=== PATIENT | male | born 1930 | race Caucasian/White ===

== ENCOUNTER → 2016-07-14 | Outpatient (CLI) | payer BC ==
[~2016-07-14] MED LIST: AMLO-110 PO; ASPI81TA28 PO; B-CO-25; CHOL100010 PO; FINA5TAB PO; FURO-85 PO; LISI40TA PO; METO100T44 PO; MULT-506 PO; NITR0.4S UT; PRAV20TA PO; TERA1CAP63 PO; WARF2.5T8 PO; saline nasal spray
--- NOTE | 2016-07-14 11:29 | DIAGNOSTIC IMAGING REPORT ---
LEFT ANKLE 3 VIEWS CLINICAL HISTORY: Left ankle pain. Recent twisting injury. FINDINGS: 3 views of left ankle are obtained. No prior studies are available for comparison at the time of dictation. The skeletal structures are osteopenic. No fracture is seen. The ankle mortise is intact. Arthritic change is seen at the tibiotalar joint with mild flattening of the talus. Enthesophytes arise from the medial and lateral malleoli. There is a large plantar calcaneal enthesophyte. No joint effusion is identified. Soft tissue edema is present in the visualized left lower extremity. There is advanced atherosclerotic calcification of the regional arteries. IMPRESSION: 1. Diffuse soft tissue edema with no radiographic evidence of left ankle fracture. 2. Osteopenia, arthritic change, and large plantar heel spur as above. Electronically signed by: Jefry Wright M.D. 07/14/2016 11:27 AM Dictated Date/Time: 07/14/2016 11:26 AM
== END | disposition home or self-care (01) ==
LOC: C.RDSM 11:15
PROVIDERS: ATTEND Family Medicine
DX: M25.572 Pain in left ankle and joints of left foot (principal); M85.872 Other specified disorders of bone density and structure, left ankle and foot; M77.32 Calcaneal spur, left foot

== ENCOUNTER 2017-02-19 13:10 | Emergency (ER) | payer BC ==
[~2017-02-19] VITALS: Ht 167.6 cm; Wt 82.1 kg
[2017-02-19 13:13] VITALS: TEMP 36.3; Ht 167.6 cm; Wt 82.1 kg
--- NOTE | 2017-02-19 13:40 | EMERGENCY ROOM VISIT NOTE ---
History Report prepared by Armin: Michael Weems Under the Supervision of: Dr. Amandeep Zeng M.D. First contact with patient: 13:18 Chief Complaint: SHORTNESS OF BREATH Stated Complaint: COUGH,SOB History of Present Illness The patient is an 86 year old white male with a past medical history of a aortocoronary bypass, a-fib, basal cell carcinoma of ear, scalp, and skin, benign HTN, cardiac pacemaker, CAD, enlarged prostate, HLD, NH who presents to the ED with a cc of a constant dry cough and shortness of breath beginning 10.5 hours ago. Pt woke up with SOB and a cough. He took a diuretic and went to sleep. Pt notes he had a cough the last time he had CHF. Positive receiving flu shot, taking Lasix, taking Coumadin for a-fib. Negative swelling in legs, nausea , vomiting, history of smoking, being SOB after walking to ED room or up-stairs , weight gain. Pt's last INR was normal. Source of History: patient Onset: 10.5 hours ago Position: other (global) Quality: other (SOB, dry cough) Timing: constant Associated Symptoms: No nausea, No vomiting Note: Denies swelling in legs, being SOB after walking up stairs and to ED room, weight gain Review of Systems See HPI for pertinent positives and negatives. A total of ten systems were reviewed and were otherwise negative. Past Medical & Surgical Medical Problems: (1) ANTICOAGULANTS,LT,CURRENT USE (2) AORTOCORONARY BYPASS (3) Atrial fibrillation (4) Basal cell carcinoma of ear (5) Basal cell carcinoma of scalp (6) Basal cell carcinoma of skin (7) Benign hypertension (8) CARDIAC PACEMAKER IN SITU (9) Coronary artery disease (10) DIAB HERIBERTO WO COMPL, TYPE II OR UNSPEC TYPE, NOT UNCNTRLD (11) Enlarged prostate (12) Hyperlipidemia (13) Old myocardial infarction (14) Prostate specific antigen abnormal (15) Tobacco user Family History FH: NH (myocardial infarction) FH: liver disease Omitted due to advanced age Social History Smoking Status: Former Smoker Smokeless Tobacco Use: No Alcohol Use: occasionally Marital Status: Housing Status: lives with significant other Occupation Status: retired Current/Historical Medications Scheduled Aspirin (Aspirin Ec), 81 MG PO Q2D Cholecalciferol (D-400), 1 TAB PO DAILY Cyanocobalamin (Vitamin B-12), 1,000 MCG PO DAILY Finasteride (Proscar), 1 TAB PO DAILY Furosemide (Lasix), 1 TAB PO DAILY Levothyroxine Sodium (Levothyroxine Sodium), 1 TAB PO DAILY Lisinopril (Zestril), 40 MG PO QAM Metoprolol Succ (Toprol Xl) (Toprol-Xl ), 100 MG PO DAILY Multivitamin (Multivitamin), 1 TAB PO DAILY Nitroglycerin (Nitrostat), 0.4 MG UT PRN Rosuvastatin Calcium (Crestor), 10 MG PO DAILY Terazosin Hcl (Hytrin), 1 CAP PO DAILY Warfarin Sod (Jantoven), 2.5 MG PO 5XWK Warfarin Sod (Jantoven), 5 MG PO 2XWK Scheduled PRN Hydrocodone W/ Homatropine (Hycodan 5/1.5MG 5 Ml), 2.5 ML PO Q6H PRN for Cough [saline nasal spray], 2 SPRAYS UD PRN for congestion Allergies Coded Allergies: NO KNOWN DRUG ALLERGIES (Verified Allergy, Unknown, , 02/19/17) Physical Exam Vital Signs Date Time Temp Pulse Resp B/P (MAP) Pulse Ox O2 Delivery O2 Flow Rate FiO2 02/19/17 16:01 62 20 159/84 97 02/19/17 15:25 67 20 167/86 96 Room Air 02/19/17 13:58 78 02/19/17 13:58 95 Room Air 02/19/17 13:57 72 20 159/84 95 Room Air 02/19/17 13:46 93 Room Air 02/19/17 13:13 36.3 86 16 167/84 97 Room Air Physical Exam GENERAL: Awake, alert, well-appearing, NAD HENT: Normocephalic, atraumatic. EYES: Normal conjunctiva. Sclera non-icteric. NECK: Supple. No nuchal rigidity. FROM. RESPIRATORY: CTAB, no rhonchi, wheezing, crackles CARDIAC: RRR, no MRG ABDOMEN: Soft, NTND, BS+ MSK: No chest wall TTP, mild pretibial edema bilaterally. NEURO: GCS 15, CN 2-12 intact, moves all 4s on command SKIN: No rash or jaundice noted. Medical Decision & Procedures ER Provider Diagnostic Interpretation: X-ray: Per my interpretation, radiologist review. CHEST ONE VIEW PORTABLE CLINICAL HISTORY: Dyspnea. Respiratory distress. COMPARISON STUDY: Chest radiograph October 15, 2013. FINDINGS: Single lead left subclavian pacemaker is unchanged in position. There are median sternotomy wires and clips from bypass grafting. Moderate cardiomegaly is noted. There is no evidence of pulmonary edema. No consolidation is identified to suggest pneumonia. There is no pneumothorax or pleural effusion. Degenerative changes of the shoulders are noted. IMPRESSION: No acute cardiopulmonary findings. Moderate cardiomegaly. Electronically signed by: Ted Herring M.D. 02/19/2017 1:55 PM Dictated Date/Time: 02/19/2017 1:54 PM Laboratory Results 02/19/17 13:54 Red Blood Count 3.58, Mean Corpuscular Volume 97.8, Mean Corpuscular Hemoglobin 34.6, Mean Corpuscular Hemoglobin Concent 35.4, Mean Platelet Volume 10.1, Neutrophils (%) (Auto) 66.8, Lymphocytes (%) (Auto) 16.6, Monocytes (%) (Auto) 15.0, Eosinophils (%) (Auto) 1.2, Basophils (%) (Auto) 0.0, Neutrophils # (Auto ) 3.35, Lymphocytes # (Auto) 0.83, Monocytes # (Auto) 0.75, Eosinophils # (Auto ) 0.06, Basophils # (Auto) 0.00 02/19/17 13:54 Test 02/19/17 13:54 02/19/17 15:17 White Blood Count 5.01 K/uL (4.8-10.8) Red Blood Count 3.58 M/uL (4.7-6.1) Hemoglobin 12.4 g/dL (14.0-18.0) Hematocrit 35.0 % (42-52) Mean Corpuscular Volume 97.8 fL (80-100) Mean Corpuscular Hemoglobin 34.6 pg (25-34) Mean Corpuscular Hemoglobin Concent 35.4 g/dl (32-36) Platelet Count 165 K/uL (130-400) Mean Platelet Volume 10.1 fL (7.4-10.4) Neutrophils (%) (Auto) 66.8 % Lymphocytes (%) (Auto) 16.6 % Monocytes (%) (Auto) 15.0 % Eosinophils (%) (Auto) 1.2 % Basophils (%) (Auto) 0.0 % Neutrophils # (Auto) 3.35 K/uL (1.4-6.5) Lymphocytes # (Auto) 0.83 K/uL (1.2-3.4) Monocytes # (Auto) 0.75 K/uL (0.11-0.59) Eosinophils # (Auto) 0.06 K/uL (0-0.5) Basophils # (Auto) 0.00 K/uL (0-0.2) RDW Standard Deviation 46.1 fL (36.4-46.3) RDW Coefficient of Variation 13.0 % (11.5-14.5) Immature Granulocyte % (Auto) 0.4 % Immature Granulocyte # (Auto) 0.02 K/uL (0.00-0.02) Prothrombin Time 19.3 SECONDS (9.0-12.0) Prothromb Time International Ratio 1.9 (0.9-1.1) Activated Partial Thromboplast Time 29.5 SECONDS (21.0-31.0) Partial Thromboplastin Ratio 1.1 Anion Gap 7.0 mmol/L (3-11) Est Creatinine Clear Calc Drug Dose 48.0 ml/min Estimated GFR () 69.3 Estimated GFR (Non- 59.8 BUN/Creatinine Ratio 11.8 (10-20) Calcium Level 8.9 mg/dl (8.5-10.1) Total Bilirubin 0.5 mg/dl (0.2-1) Aspartate Amino Transf (AST/SGOT) 24 U/L (15-37) Alanine Aminotransferase (ALT/SGPT) 27 U/L (12-78) Alkaline Phosphatase 84 U/L (45-117) Troponin I 0.018 ng/ml (0-0.045) Pro-B-Type Natriuretic Peptide 2702 pg/ml (0-1800) Total Protein 7.7 gm/dl (6.4-8.2) Albumin 3.7 gm/dl (3.4-5.0) Globulin 4.0 gm/dl (2.5-4.0) Albumin/Globulin Ratio 0.9 (0.9-2) Urine Color YELLOW Urine Appearance CLEAR (CLEAR) Urine pH 5.0 (4.5-7.5) Urine Specific [place] 1.014 (1.000-1.030) Urine Protein NEG (NEG) Urine Glucose (UA) NEG (NEG) Urine Ketones NEG (NEG) Urine Occult Blood NEG (NEG) Urine Nitrite NEG (NEG) Urine Bilirubin NEG (NEG) Urine Urobilinogen NEG (NEG) Urine Leukocyte Esterase NEG (NEG) Laboratory results reviewed by me ECG Indication: SOB/dyspnea Rate (beats per minute): 64 Rhythm: atrial fibrillation (intermittently ventricularly paced) Findings: other (When paced - wide QRS, normal QTc, Diffuse Q-waves throughout with TWIs in leads I and AVL. When not paced - normal QRS, normal QTc, TWI in AVF) Comparison ECG Date: 10/15/13 & 12/01/11 Change: 10/15/13 - ventricularly paced rhythm is unchanged 12/01/11 - non-paced rhythm is unchanged ED Course 1324: The patient was evaluated in room B04B. A complete history and physical exam was performed. 1532: I reevaluated the patient. Discussed results and discharge instructions: he verbalized understanding and agreement. The patient is ready for discharge. Medical Decision The patient is an 86 year old white male with a past medical history of a aortocoronary bypass, a-fib, basal cell carcinoma of ear, scalp, and skin, benign HTN, cardiac pacemaker, CAD, enlarged prostate, HLD, NH who presents to the ED with a cc of a constant dry cough and shortness of breath beginning 10.5 hours ago. Differential diagnosis: Etiologies such as infections, reactive airway disease, pneumonia, pneumothorax , COPD, CHF, cardiac ischemia, pulmonary embolism, musculoskeletal, gastrointestinal, as well as others were entertained. Patient was seen and evaluated at the bedside. Patient does have a known history of cardiac disease as well as A. fib and is on Coumadin. Patient did present today with a chief complaint of some dry cough that is causing issues with sleep. Patient also did complain of some mild shortness of breath with the patient did take an extra dose of his Lasix as he was concerned that maybe he was developing some CHF. Patient states that his weights been stable. Patient does not have any chest pain. Patient has not noticed much lower extremity swelling. On exam the patient is very well-appearing doesn't have any wheezing or crackles. Patient does have some trace pretibial edema but no other signs or symptoms or concerning. Patient does sound as though he is in A. fib. EKG did show intermittent the paced without any acute ischemic changes. Patient's blood work was fairly unremarkable. Patient's BNP was 2000 however the patient does not have any signs of volume overload on his chest x- ray or on his physical examination as he did not have any crackles and only had trace pretibial edema. Patient kidney function normal. Patient did receive some codeine help with his cough. Patient has noted infectious causes of pneumonia or other lung disease on chest x-ray. Patient was feeling improved and again does not have any complaints of shortness of breath or chest pain upon reassessment of the patient. Patient did state that he did ambulate into the department without any dyspnea on exertion. Patient has no orthopnea. The patient is suitable for outpatient follow-up and treatment at this time. Patient was told to continue to check his weights and that if he needs to he may take an extra dose of his Lasix. Patient was told to follow-up with his primary care physician. Patient was told his INR was 1.9 which is a touch below his therapeutic level. Patient is to follow-up with his primary care for this well and/or Coumadin clinic. Patient was given strict follow-up, discharge , and return precautions. All questions were answered. Patient was deemed suitable for outpatient follow-up at this time. Patient agreed with the plan of care and was safely discharged home. Medication Reconcilliation Current Medication List: was personally reviewed by me Blood Pressure Screening Patient's blood pressure: Elevated blood pressure Blood pressure disposition: Referred to PCP Impression Primary Impression: Cough Additional Impression: Anemia Scribe Attestation The scribe's documentation has been prepared under my direction and personally reviewed by me in its entirety. I confirm that the note above accurately reflects all work, treatment, procedures, and medical decision making performed by me. Departure Information Dispostion Home / Self-Care Prescriptions Hydrocodone W/ Homatropine (HYCODAN 5/1.5MG 5 ML) 1 Syp Syp 2.5 ML PO Q6H Y for Cough, #60 ML Prov: Amandeep Zeng M.D. 02/19/17 Referrals Ty Mosqueda D.O. (PCP) Forms HOME CARE DOCUMENTATION FORM, IMPORTANT VISIT INFORMATION Patient Instructions Coughing Techniques, Deep Coughing, My [facility] Additional Instructions Please return to the emergency department if you have worsening or recurrent symptoms not amenable to at-home treatment. Please call for a follow-up appointment with her primary care physician. Please take your medications as prescribed. If you have other concerns and/or complaints please feel free to also call your primary care physician's office or return the ED for further evaluation, management, and treatment. You may take 600 mg Ibuprofen every 6 hours as needed for pain with food for no more than 2 consecutive days. You may take tylenol 1000 mg every 6 hours as needed for pain. You may take motrin and tylenol separately or at the same time. Take your medications as prescribed. You have been examined and treated today on an emergency basis only. This is not a substitute for, or an effort to provide, complete comprehensive medical care. It is impossible to recognize and treat all injuries or illnesses in a single emergency department visit. It is therefore important that you follow up closely with [facility], your PCP, and/or your specialist(s). Call as soon as possible for an appointment. Thank you for your time and consideration. I look forward to speaking with you again soon. Please don't hesitate to call us if you have any questions. Problem Qualifiers Additional Impression: Anemia Anemia type: unspecified type Qualified Codes: D64.9 - Anemia, unspecified
[2017-02-19] MEDS ORDERED: ACETAMINOPHEN/CODEINE 300/30MG TAB PO ONE (13:45)
--- NOTE | 2017-02-19 13:56 | DIAGNOSTIC IMAGING REPORT ---
CHEST ONE VIEW PORTABLE CLINICAL HISTORY: Dyspnea. Respiratory distress. COMPARISON STUDY: Chest radiograph October 15, 2013. FINDINGS: Single lead left subclavian pacemaker is unchanged in position. There are median sternotomy wires and clips from bypass grafting. Moderate cardiomegaly is noted. There is no evidence of pulmonary edema. No consolidation is identified to suggest pneumonia. There is no pneumothorax or pleural effusion. Degenerative changes of the shoulders are noted. IMPRESSION: No acute cardiopulmonary findings. Moderate cardiomegaly. Electronically signed by: Ted Herring M.D. 02/19/2017 1:55 PM Dictated Date/Time: 02/19/2017 1:54 PM
[2017-02-19 13:58] VITALS: O2SAT 95
[2017-02-19 14:05] LABS: EOS % 1.2 %; EOS ABS # 0.06 K/uL (0-0.5); HEMOGLOBIN 12.4 g/dL (14.0-18.0); IG# 0.02 K/uL (0.00-0.02); LYMPH % 16.6 %; LYMPH ABS # 0.83 K/uL (1.2-3.4); MEAN CELL VOLUME 97.8 fL (80-100); MEAN CORPUSCULAR HEMOGLOBIN 34.6 pg (25-34); MEAN CORPUSCULAR HGB CONC 35.4 g/dl (32-36); MEAN PLATELET VOLUME 10.1 fL (7.4-10.4); MONO ABS # 0.75 K/uL (0.11-0.59); NEUT % 66.8 %; NEUT ABS # 3.35 K/uL (1.4-6.5); PLATELET COUNT 165 K/uL (130-400); RED CELL DISTRIBUTION WIDTH SD 46.1 fL (36.4-46.3); WHITE BLOOD COUNT 5.01 K/uL (4.8-10.8)
[2017-02-19 14:13] LABS: INR 1.9 (0.9-1.1); PTT PATIENT 29.5 SECONDS (21.0-31.0)
[2017-02-19 14:22] LABS: ALBUMIN 3.7 gm/dl (3.4-5.0); CALCIUM 8.9 mg/dl (8.5-10.1); CREATININE 1.11 mg/dl (0.60-1.40); POTASSIUM 3.8 mmol/L (3.5-5.1)
[2017-02-19 14:27] LABS: TOTAL PROTEIN 7.7 gm/dl (6.4-8.2)
[2017-02-19] MEDS ORDERED: CYAN10005 PO (14:37)
[2017-02-19] MEDS ORDERED: CHOLTAB PO (14:37)
[2017-02-19] MEDS ORDERED: CRS/10 PO (14:37)
[2017-02-19] MEDS ORDERED: LEVO25TA5 PO (14:37)
[2017-02-19] MEDS ORDERED: HYDR5SYP11 PO (15:46)
[2017-02-19 16:01] VITALS: BP 159/84; PULSE 62; O2SAT 97
== END 2017-02-19 16:00 | disposition home or self-care (01) ==
LOC: C.EDB 13:11
DX: R05 Cough (principal); D64.9 Anemia, unspecified; I48.91 Unspecified atrial fibrillation; I10 Essential (primary) hypertension; I25.2 Old myocardial infarction; E78.5 Hyperlipidemia, unspecified; E11.9 Type 2 diabetes mellitus without complications; R94.31 Abnormal electrocardiogram [ECG] [EKG]; Z95.0 Presence of cardiac pacemaker; Z79.01 Long term (current) use of anticoagulants; Z79.82 Long term (current) use of aspirin; Z87.891 Personal history of nicotine dependence; Z82.49 Family history of ischemic heart disease and other diseases of the circulatory system; Z83.79 Family history of other diseases of the digestive system

== ENCOUNTER 2017-05-22 15:39 | Inpatient (IN) | payer OTHER, BC ==
[~2017-05-22] VITALS: Ht 170.2 cm; Wt 79.9 kg
[~2017-05-22 15:39] MED LIST changes: -AMLO-110 PO; -B-CO-25; -CHOL100010 PO; +CHOLTAB PO; +CRS/10 PO; +CYAN10005 PO; +LEVO25TA5 PO; -MULT-506 PO; -NITR0.4S UT; -PRAV20TA PO
[2017-05-22] MEDS ORDERED: MULT-506 PO (15:45)
[2017-05-22 16:15] LABS: BASO % 0.2 %; BASO ABS # 0.01 K/uL (0-0.2); EOS ABS # 0.15 K/uL (0-0.5); HEMATOCRIT 36.9 % (42-52); HEMOGLOBIN 13.2 g/dL (14.0-18.0); IG# 0.01 K/uL (0.00-0.02); LYMPH % 29.9 %; LYMPH ABS # 1.52 K/uL (1.2-3.4); MEAN CELL VOLUME 96.3 fL (80-100); MEAN CORPUSCULAR HEMOGLOBIN 34.5 pg (25-34); MEAN CORPUSCULAR HGB CONC 35.8 g/dl (32-36); MONO % 12.6 %; MONO ABS # 0.64 K/uL (0.11-0.59); NEUT % 54.1 %; NEUT ABS # 2.75 K/uL (1.4-6.5); PLATELET COUNT 224 K/uL (130-400); RED CELL DISTRIBUTION WIDTH CV 13.4 % (11.5-14.5); RED CELL DISTRIBUTION WIDTH SD 46.9 fL (36.4-46.3); WHITE BLOOD COUNT 5.08 K/uL (4.8-10.8)
[2017-05-22 16:27] LABS: INR 1.7 (0.9-1.1); PTT PATIENT 27.5 SECONDS (21.0-31.0)
--- NOTE | 2017-05-22 16:28 | EMERGENCY ROOM VISIT NOTE ---
History First contact with patient: 15:43 Chief Complaint: WEAKNESS Stated Complaint: TIA SX Nursing Triage Summary: pt arrives via EMS reports while attempting to take food out of refrigerator R arm became weak and tingly also RLE became weak, pt denies speech difficulty, GUERRA , CP or sob , denies visin changes upon arrival to ED pt sx have all resolved History of Present Illness The patient is a 86 year old male with hx of CAD s/p NH and bypass, Afib on Coumadin, pacemaker, HLD, BPH, basal cell carcinoma who presents to the Emergency Room with complaints of R sided arm and leg weakness. Associated with R arm/hand numbness and tingling and inability to grasp (was not able to take a vegetable dish from refrigerator or pick nose). No changes in speech per . Denies any falls, GUERRA, vision changes. Otherwise asymptomatic. Reports 1st episode and no hx of strokes. Symptoms lasted < 1 hour. Now back to baseline and able to use R hand/arm and not having any R leg weakness. Of note: pt smoked for 10 years and quit in 1958. Review of Systems see below Constitutional: No fever Respiratory: No shortness of breath Cardiovascular: No chest pain Abdomen: No pain, No nausea, No vomiting, No diarrhea, No constipation Genitourinary - Male: + urinary frequency (BPH hx ), No dysuria Neurologic: No weakness (resolved), No numbness/tingling (resolved) Past Medical/Surgical History Medical Problems: (1) ANTICOAGULANTS,LT,CURRENT USE (2) AORTOCORONARY BYPASS (3) Atrial fibrillation (4) Basal cell carcinoma of ear (5) Basal cell carcinoma of scalp (6) Basal cell carcinoma of skin (7) Benign hypertension (8) CARDIAC PACEMAKER IN SITU (9) Coronary artery disease (10) DIAB HERIBERTO WO COMPL, TYPE II OR UNSPEC TYPE, NOT UNCNTRLD (11) Enlarged prostate (12) Hyperlipidemia (13) Old myocardial infarction (14) Prostate specific antigen abnormal (15) Tobacco user Family History FH: NH (myocardial infarction) FH: liver disease Omitted due to advanced age Social History Smoking Status: Former Smoker Alcohol Use: occasionally Marital Status: Housing Status: lives with significant other Occupation Status: retired Current/Historical Medications Scheduled Aspirin (Aspirin Ec), 81 MG PO Q2D Cholecalciferol (D-400), 400 INTER.UNIT PO DAILY Cyanocobalamin (Vitamin B-12), 1,000 MCG PO DAILY Finasteride (Finasteride), 5 MG PO DAILY Furosemide (Furosemide), 20 MG PO DAILY Levothyroxine Sodium (Levothyroxine Sodium), 25 MCG PO DAILY Lisinopril (Lisinopril), 40 MG PO QAM Metoprolol Succinate (Metoprolol Succinate ER), 100 MG PO DAILY Multivitamin (Multivitamin), 1 TAB PO DAILY Terazosin Hcl (Hytrin), 10 MG PO HS Warfarin Sodium (Warfarin Sodium), 2.5 MG PO DAILY Scheduled PRN Nitroglycerin (Nitrostat), 0.4 MG UT UD PRN for Chest Pain Saline (Saline Nasal [place]), 2 SPRAYS NA UD PRN for Nasal Congestion Physical Exam Vital Signs Date Time Temp Pulse Resp B/P (MAP) Pulse Ox O2 Delivery O2 Flow Rate FiO2 05/22/17 17:02 65 18 177/93 96 Room Air 05/22/17 15:47 36.6 78 18 177/93 96 Room Air Physical Exam see below General Appearance: no apparent distress Head: normocephalic, atraumatic Eyes: normal inspection ENT: normal ENT inspection Neck: supple, no adenopathy Respiratory/Chest: lungs clear, normal breath sounds Cardiovascular: regular rate, rhythm, no murmur Abdomen / GI: normal bowel sounds, non tender, soft Extremities: normal inspection, no pedal edema Neurologic/Psych: safety lead II-XII nml as tested, no motor/sensory deficits, alert , oriented x 3 Medical Decision & Procedures ER Provider Diagnostic Interpretation: EK ventricular paced CXR: ___ CT head: ___ Laboratory Results 05/22/17 15:40 Red Blood Count 3.83, Mean Corpuscular Volume 96.3, Mean Corpuscular Hemoglobin 34.5, Mean Corpuscular Hemoglobin Concent 35.8, Mean Platelet Volume 10.0, Neutrophils (%) (Auto) 54.1, Lymphocytes (%) (Auto) 29.9, Monocytes (%) (Auto) 12.6, Eosinophils (%) (Auto) 3.0, Basophils (%) (Auto) 0.2, Neutrophils # (Auto ) 2.75, Lymphocytes # (Auto) 1.52, Monocytes # (Auto) 0.64, Eosinophils # (Auto ) 0.15, Basophils # (Auto) 0.01 05/22/17 15:40 Test 05/22/17 15:40 White Blood Count 5.08 K/uL (4.8-10.8) Red Blood Count 3.83 M/uL (4.7-6.1) Hemoglobin 13.2 g/dL (14.0-18.0) Hematocrit 36.9 % (42-52) Mean Corpuscular Volume 96.3 fL (80-100) Mean Corpuscular Hemoglobin 34.5 pg (25-34) Mean Corpuscular Hemoglobin Concent 35.8 g/dl (32-36) Platelet Count 224 K/uL (130-400) Mean Platelet Volume 10.0 fL (7.4-10.4) Neutrophils (%) (Auto) 54.1 % Lymphocytes (%) (Auto) 29.9 % Monocytes (%) (Auto) 12.6 % Eosinophils (%) (Auto) 3.0 % Basophils (%) (Auto) 0.2 % Neutrophils # (Auto) 2.75 K/uL (1.4-6.5) Lymphocytes # (Auto) 1.52 K/uL (1.2-3.4) Monocytes # (Auto) 0.64 K/uL (0.11-0.59) Eosinophils # (Auto) 0.15 K/uL (0-0.5) Basophils # (Auto) 0.01 K/uL (0-0.2) RDW Standard Deviation 46.9 fL (36.4-46.3) RDW Coefficient of Variation 13.4 % (11.5-14.5) Immature Granulocyte % (Auto) 0.2 % Immature Granulocyte # (Auto) 0.01 K/uL (0.00-0.02) Prothrombin Time 18.1 SECONDS (9.0-12.0) Prothromb Time International Ratio 1.7 (0.9-1.1) Activated Partial Thromboplast Time 27.5 SECONDS (21.0-31.0) Partial Thromboplastin Ratio 1.1 Anion Gap 7.0 mmol/L (3-11) Est Creatinine Clear Calc Drug Dose 53.4 ml/min Estimated GFR () 74.1 Estimated GFR (Non- 64.0 BUN/Creatinine Ratio 16.6 (10-20) Calcium Level 9.3 mg/dl (8.5-10.1) Total Bilirubin 0.5 mg/dl (0.2-1) Aspartate Amino Transf (AST/SGOT) 27 U/L (15-37) Alanine Aminotransferase (ALT/SGPT) 31 U/L (12-78) Alkaline Phosphatase 69 U/L (45-117) Troponin I < 0.015 ng/ml (0-0.045) Total Protein 7.7 gm/dl (6.4-8.2) Albumin 3.7 gm/dl (3.4-5.0) Globulin 4.0 gm/dl (2.5-4.0) Albumin/Globulin Ratio 0.9 (0.9-2) ED Course Pt evaluated in B3A at 3:55 and case discussed with Dr. Villa. Medical Decision 86 year old male with hx of CAD s/p NH and bypass, Afib on Coumadin, pacemaker , HLD, BPH, hx of basal cell carcinoma who presents with concern of now resolved R sided arm and leg weakness associated with paraesthesias concerning for TIA in the setting of Afib on anticoagulation vs. head bleed vs. ischemic/ hemorrhagic stroke vs. NH. Will assess INR to ensure therapeutic. -Ordered CT head without contrast - senescent changes with no hemorrhage, mass effect or acute territorial ischemia -Ordered CXR - consistent with chronic heart disease (cardiomegaly and cardiac pacemaker with evidence of CHF) -Ordered coags - subtherapeutic INR of 1.7 -Ordered CBC, CMP - wnl -Ordered Troponin - negative -paged hospitalist Lucia for admission at 17:40 -Spoke to HECTOR Etienne for admission for TIA work up at 17:55 Impression Primary Impression: Atrial fibrillation Additional Impression: TIA (transient ischemic attack) Departure Information Dispostion Admitted as an inpatient Condition GOOD Referrals Ty Mosqueda D.O. (PCP) Patient Instructions My [facility] Problem Qualifiers
--- NOTE | 2017-05-22 16:33 | DIAGNOSTIC IMAGING REPORT ---
SINGLE VIEW CHEST CLINICAL HISTORY: Transient ischemic attack. Weakness. FINDINGS: An AP, portable, upright chest radiograph is compared to study dated 02/19/2017. The examination is degraded by portable technique and patient rotation. A single lead cardiac pacemaker is unchanged in position. The patient is status post midline sternotomy. The heart is enlarged and there is atherosclerotic calcification of the thoracic aorta. There is pulmonary vascular congestion. There is bibasilar atelectasis. No airspace consolidation or large pleural effusion is identified. No pneumothorax is seen. The skeletal structures are osteopenic. Advanced arthritic change is noted in the shoulders and thoracic spine. IMPRESSION: 1. Cardiomegaly and cardiac pacemaker with evidence of congestive failure. 2. No airspace consolidation or large pleural effusion is identified. Electronically signed by: Jefry Wright M.D. 05/22/2017 4:32 PM Dictated Date/Time: 05/22/2017 4:30 PM
[2017-05-22 16:39] LABS: ALBUMIN 3.7 gm/dl (3.4-5.0); ALT/SGPT 31 U/L (12-78); AST/SGOT 27 U/L (15-37); BLOOD UREA NITROGEN 17 mg/dl (7-18); CALCIUM 9.3 mg/dl (8.5-10.1); CARBON DIOXIDE 26 mmol/L (21-32); CREATININE 1.05 mg/dl (0.60-1.40); GLUCOSE 115 mg/dl (70-99); POTASSIUM 3.8 mmol/L (3.5-5.1); SODIUM 138 mmol/L (136-145)
[2017-05-22 16:42] LABS: ALKALINE PHOSPHATASE 69 U/L (45-117); TOTAL PROTEIN 7.7 gm/dl (6.4-8.2)
[2017-05-22] MEDS ORDERED: WARF-280 PO (16:53)
[2017-05-22] MEDS ORDERED: LSX20 PO (16:53)
[2017-05-22] MEDS ORDERED: PRS5 PO (16:53)
[2017-05-22] MEDS ORDERED: TPRSR/100 PO (16:53)
[2017-05-22] MEDS ORDERED: LSN40 PO (16:53)
[2017-05-22] MEDS ORDERED: SALI-3 (16:56)
--- NOTE | 2017-05-22 17:35 | DIAGNOSTIC IMAGING REPORT ---
CT SCAN OF THE BRAIN WITHOUT IV CONTRAST CLINICAL HISTORY: Transient ischemic attack. COMPARISON STUDY: CT of the brain dated 06/01/2008. TECHNIQUE: Unenhanced axial CT scan of the brain is performed from the vertex to the skull base. A dose lowering technique was utilized adhering to the principles of ALARA. CT DOSE: 537.48 mGy.cm FINDINGS: Brain parenchyma: There are age-related involutional changes noting moderate to advanced subcortical and periventricular microangiopathic change. There is no hemorrhage, mass effect, or evidence of acute territorial ischemia by CT criteria. Villan[place]va-white matter is preserved. No extra-axial fluid collection is seen. Ventricles, sulci, cisterns: Prominent secondary to involutional change. Intracranial vasculature: There is atherosclerotic calcification of the cavernous carotid and vertebral arteries. Calvarium: Unremarkable. Sinuses and mastoids: The visualized paranasal sinuses are clear. The mastoid air cells are well pneumatized. Orbits: The bony orbits are grossly intact. There are bilateral ocular lens implants. IMPRESSION: Senescent changes as above with no hemorrhage, mass effect, or evidence of acute territorial ischemia by CT criteria. Electronically signed by: Jefry Wright M.D. 05/22/2017 5:34 PM Dictated Date/Time: 05/22/2017 5:32 PM
--- NOTE | 2017-05-22 18:33 | EMERGENCY ROOM VISIT NOTE ---
ED Visit Note First contact with patient: 15:43 Patient seen and examined at bedside after discussion with the resident. Please refer to the resident's note for additional details and information. Patient with an episode of right-sided weakness, tremor predominantly in the upper extremity greater than lower extremity that occurred earlier today lasting approximately 30-40 minutes. This was resolved by the time of his arrival in the emergency room. Patient noted dropping things from his right hand. Patient is right-hand dominant. Patient with no prior history of TIA or CVA. Patient does have risk factors for such though. Patient with no recurrence of his prior symptoms and felt normal throughout his ED evaluation. No prior history of similar events. Patient's INR noted to be slightly subtherapeutic. Patient was admitted to the hospitalist for additional evaluation of TIA/CVA. MDM: Given advanced age and comorbidities patient likely with TIA. No recurrent symptoms in the emergency room. CT negative and labs reassuring. Patient hemodynamically stable throughout. Patient is anticoagulated, although was found to be subtherapeutic today. Patient does have a history of A. fib. Patient made aware of all results and plan and was in agreement. Patient unable to have MRI done due to pacemaker. Patient's EKG showed no acute changes and a obviously paced rhythm with abnormalities known to be seen in pacemaker patient's. Patient will likely need carotid ultrasound and possible echo/cardiology evaluation. Problem List Medical Problems: (1) ANTICOAGULANTS,LT,CURRENT USE Status: Chronic (2) AORTOCORONARY BYPASS Status: Resolved (3) Atrial fibrillation Status: Chronic (4) Atrial fibrillation Status: Chronic (5) Basal cell carcinoma of ear Status: Resolved (6) Basal cell carcinoma of scalp Status: Resolved (7) Basal cell carcinoma of skin Status: Resolved (8) Benign hypertension Status: Chronic (9) Bladder cancer Status: Resolved (10) CARDIAC PACEMAKER IN SITU Status: Chronic (11) Coronary artery disease Status: Chronic (12) Enlarged prostate Status: Chronic (13) Hyperlipidemia Status: Chronic (14) retirement (current) use of anticoagulants Status: Chronic (15) Old myocardial infarction Status: Resolved (16) Prostate specific antigen abnormal Status: Chronic (17) Tobacco user Status: Chronic Surgical Problems: (1) Hx of CABG Status: Chronic Current/Historical Medications Scheduled Aspirin (Aspirin Ec), 81 MG PO Q2D Cholecalciferol (D-400), 400 INTER.UNIT PO DAILY Cyanocobalamin (Vitamin B-12), 1,000 MCG PO DAILY Finasteride (Finasteride), 5 MG PO DAILY Furosemide (Furosemide), 20 MG PO DAILY Hydralazine HCl (Hydralazine HCl), 10 MG PO TID Levothyroxine Sodium (Levothyroxine Sodium), 25 MCG PO DAILY Lisinopril (Lisinopril), 40 MG PO QAM Metoprolol Succinate (Metoprolol Succinate ER), 100 MG PO DAILY Multivitamin (Multivitamin), 1 TAB PO DAILY Terazosin Hcl (Hytrin), 10 MG PO HS Warfarin Sodium (Coumadin), 4 MG PO DAILY Scheduled PRN Nitroglycerin (Nitrostat), 0.4 MG UT UD PRN for Chest Pain Saline (Saline Nasal [place]), 2 SPRAYS NA UD PRN for Nasal Congestion Allergies Coded Allergies: NO KNOWN DRUG ALLERGIES (Verified Allergy, Unknown, , 02/19/17) Statins (Verified Allergy, Unknown, Leg weakness and pain, 05/22/17) Vital Signs Date Time Temp Pulse Resp B/P (MAP) Pulse Ox O2 Delivery O2 Flow Rate FiO2 05/22/17 18:38 66 18 164/84 98 Room Air 05/22/17 18:37 67 05/22/17 17:02 65 18 177/93 96 Room Air 05/22/17 15:47 36.6 78 18 177/93 96 Room Air Laboratory Results Test 05/22/17 15:40 Activated Partial Thromboplast Time 27.5 SECONDS (21.0-31.0) Partial Thromboplastin Ratio 1.1 Total Bilirubin 0.5 mg/dl (0.2-1) Aspartate Amino Transf (AST/SGOT) 27 U/L (15-37) Alanine Aminotransferase (ALT/SGPT) 31 U/L (12-78) Alkaline Phosphatase 69 U/L (45-117) Troponin I < 0.015 ng/ml (0-0.045) Total Protein 7.7 gm/dl (6.4-8.2) Albumin 3.7 gm/dl (3.4-5.0) Globulin 4.0 gm/dl (2.5-4.0) Albumin/Globulin Ratio 0.9 (0.9-2) Departure Information Impression Primary Impression: TIA (transient ischemic attack) Additional Impressions: Atrial fibrillation Subtherapeutic international normalized ratio (INR) Dispostion Admitted as an inpatient Condition GOOD Prescriptions Warfarin Sodium (COUMADIN) 2 Mg Tab 4 MG PO DAILY for 30 Days, #60 TAB 1 Refill Prov: Craig Polanco MD 05/25/17 Hydralazine HCl (Hydralazine HCl) 10 Mg Tab 10 MG PO TID for 30 Days, #90 TAB 1 Refill Prov: Craig Polanco MD 05/25/17 Referrals Ty Mosqueda D.O. (PCP) Patient Instructions My [facility] Problem Qualifiers Primary Impression: TIA (transient ischemic attack) Transient cerebral ischemia type: unspecified Qualified Codes: G45.9 - Transient cerebral ischemic attack, unspecified
[2017-05-22] MEDS ORDERED: ONDANSETRON INJ 2 MG/ML 2 ML VIAL IV PRN (19:45)
[2017-05-22] MEDS ORDERED: PHARMACIST DISCHARGE MED REC CONSULT PRN (19:45)
[2017-05-22] MEDS ORDERED: POLYETHYLENE (MIRALAX) 17 GM PACK PO PRN (19:45)
[2017-05-22] MEDS ORDERED: SODIUM CHLORIDE 0.65% NA SOLN 45 ML (OCEAN) PRN (19:45)
[2017-05-22] MEDS ORDERED: ACETAMINOPHEN 325 MG TAB PO PRN (19:45)
[2017-05-22] MEDS ORDERED: NITROGLYCERIN 0.4 MG SL PER TAB CHARGE UT PRN (19:45)
--- NOTE | 2017-05-22 20:01 | History and Physical ---
History & Physical Date & Time of Service: May 22, 2017 at 19:42 Chief Complaint: Tia Sx Primary Care Physician: Ty Mosqueda D.O. History of Present Illness Source: patient, clinic records, hospital records 86-year-old man presents with right face, arm, leg numbness and weakness that began at 3:30 PM today while he was reaching into his fridge and lasted approximately less than an hour. He denies any difficulty speaking, swallowing , mentating, denies headache, visual changes, and was able to walk. He did report feeling uncoordinated with respect to his fingers and with his walking. He denies ever having any symptoms in the past. He was transported via EMS to the ER. On arrival blood pressure was 177/93 pulse 78 respirations 18 is oxygenating 96% on room air. The patient was afebrile. Symptoms had resolved by this point. Lab work was performed and unremarkable in EKG revealed atrial fibrillation with a V paced rhythm and a rate of 69. Chest x-ray and CT head were unremarkable for acute changes. He reports an intolerance to statins after being on them for several years and going through multiple different kinds. He recently reports in the last few months developing muscle aches that caused him leg weakness and leg pain. He reports being finally taken off the statins 2 weeks ago and states that since that time he has still intermittently felt this pain and weakness in his legs especially. He reports starting a new workout routine yesterday doing the rowing machine and a few other cardio things. He reports walking excessively and lows today for 3 hours doing some shopping. This occurred prior to the onset of symptoms. 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 Past Medical/Surgical History Medical Problems: (1) ANTICOAGULANTS,LT,CURRENT USE Status: Chronic (2) AORTOCORONARY BYPASS Status: Resolved (3) Atrial fibrillation Status: Chronic (4) Atrial fibrillation Status: Chronic (5) Basal cell carcinoma of ear Status: Resolved (6) Basal cell carcinoma of scalp Status: Resolved (7) Basal cell carcinoma of skin Status: Resolved (8) Benign hypertension Status: Chronic (9) Bladder cancer Status: Resolved (10) CARDIAC PACEMAKER IN SITU Status: Chronic (11) Coronary artery disease Status: Chronic (12) Enlarged prostate Status: Chronic (13) Hyperlipidemia Status: Chronic (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 (15) Old myocardial infarction Status: Resolved (16) Prostate specific antigen abnormal Status: Chronic (17) Tobacco user Status: Chronic Surgical Problems: (1) Hx of CABG Status: Chronic Family History FH: [place] (myocardial infarction) FH: liver disease Social History Smoking Status: Former Smoker Smokeless Tobacco Use: No Alcohol Use: occasionally (1-2 drinks nightly, mixed beer and hard liquor) Drug Use: none Marital Status: Housing status: lives with significant other Occupational Status: retired Immunizations History of Influenza Vaccine: Yes Influenza Vaccine Date: Dec 13, 2016 History of Tetanus Vaccine?: Unknown History of Pneumococcal: Yes Pneumococcal Date: Jul 22, 2014 History of Hepatitis B Vaccine: Unknown Allergies Coded Allergies: NO KNOWN DRUG ALLERGIES (Verified Allergy, Unknown, , 02/19/17) Statins (Verified Allergy, Unknown, Leg weakness and pain, 05/22/17) Home Medications Scheduled Aspirin (Aspirin Ec), 81 MG PO Q2D Cholecalciferol (D-400), 400 INTER.UNIT PO DAILY Cyanocobalamin (Vitamin B-12), 1,000 MCG PO DAILY Finasteride (Finasteride), 5 MG PO DAILY Furosemide (Furosemide), 20 MG PO DAILY Levothyroxine Sodium (Levothyroxine Sodium), 25 MCG PO DAILY Lisinopril (Lisinopril), 40 MG PO QAM Metoprolol Succinate (Metoprolol Succinate ER), 100 MG PO DAILY Multivitamin (Multivitamin), 1 TAB PO DAILY Terazosin Hcl (Hytrin), 10 MG PO HS Warfarin Sodium (Warfarin Sodium), 2.5 MG PO DAILY Scheduled PRN Nitroglycerin (Nitrostat), 0.4 MG UT UD PRN for Chest Pain Saline (Saline Nasal [place]), 2 SPRAYS NA UD PRN for Nasal Congestion Review of Systems At least 10 systems were reviewed and negative except as indicated in HPI. Physical Exam Vital Signs Date Time Temp Pulse Resp B/P (MAP) Pulse Ox O2 Delivery O2 Flow Rate FiO2 05/22/17 18:38 66 18 164/84 98 Room Air 05/22/17 18:37 67 05/22/17 17:02 65 18 177/93 96 Room Air 05/22/17 15:47 36.6 78 18 177/93 96 Room Air General Appearance: WD/WN, no apparent distress Head: normocephalic, atraumatic Eyes: normal inspection, PERRL, EOMI, sclerae normal ENT: hearing grossly normal, + pertinent finding Neck: no JVD, trachea midline Respiratory/Chest: lungs clear, normal breath sounds, no respiratory distress, no accessory muscle use Cardiovascular: no edema, no gallop, no JVD, no murmur, + irregularly irregular Abdomen/GI: normal bowel sounds, non tender, soft, + pertinent finding ( Ventral hernia reducible) Extremities/Musculoskelatal: normal inspection, no pedal edema, normal range of motion Neurologic/Psych: campus coordinator II-XII nml as tested, no motor/sensory deficits, alert, normal mood/affect, normal reflexes, oriented x 3 Skin: normal color, warm/dry Diagnostics Laboratory Results 05/22/17 15:40 Red Blood Count 3.83, Mean Corpuscular Volume 96.3, Mean Corpuscular Hemoglobin 34.5, Mean Corpuscular Hemoglobin Concent 35.8, Mean Platelet Volume 10.0, Neutrophils (%) (Auto) 54.1, Lymphocytes (%) (Auto) 29.9, Monocytes (%) (Auto) 12.6, Eosinophils (%) (Auto) 3.0, Basophils (%) (Auto) 0.2, Neutrophils # (Auto ) 2.75, Lymphocytes # (Auto) 1.52, Monocytes # (Auto) 0.64, Eosinophils # (Auto ) 0.15, Basophils # (Auto) 0.01 05/22/17 15:40 Test 05/22/17 15:40 White Blood Count 5.08 K/uL (4.8-10.8) Red Blood Count 3.83 M/uL (4.7-6.1) Hemoglobin 13.2 g/dL (14.0-18.0) Hematocrit 36.9 % (42-52) Mean Corpuscular Volume 96.3 fL (80-100) Mean Corpuscular Hemoglobin 34.5 pg (25-34) Mean Corpuscular Hemoglobin Concent 35.8 g/dl (32-36) Platelet Count 224 K/uL (130-400) Mean Platelet Volume 10.0 fL (7.4-10.4) Neutrophils (%) (Auto) 54.1 % Lymphocytes (%) (Auto) 29.9 % Monocytes (%) (Auto) 12.6 % Eosinophils (%) (Auto) 3.0 % Basophils (%) (Auto) 0.2 % Neutrophils # (Auto) 2.75 K/uL (1.4-6.5) Lymphocytes # (Auto) 1.52 K/uL (1.2-3.4) Monocytes # (Auto) 0.64 K/uL (0.11-0.59) Eosinophils # (Auto) 0.15 K/uL (0-0.5) Basophils # (Auto) 0.01 K/uL (0-0.2) RDW Standard Deviation 46.9 fL (36.4-46.3) RDW Coefficient of Variation 13.4 % (11.5-14.5) Immature Granulocyte % (Auto) 0.2 % Immature Granulocyte # (Auto) 0.01 K/uL (0.00-0.02) Prothrombin Time 18.1 SECONDS (9.0-12.0) Prothromb Time International Ratio 1.7 (0.9-1.1) Activated Partial Thromboplast Time 27.5 SECONDS (21.0-31.0) Partial Thromboplastin Ratio 1.1 Anion Gap 7.0 mmol/L (3-11) Est Creatinine Clear Calc Drug Dose 53.4 ml/min Estimated GFR () 74.1 Estimated GFR (Non- 64.0 BUN/Creatinine Ratio 16.6 (10-20) Calcium Level 9.3 mg/dl (8.5-10.1) Total Bilirubin 0.5 mg/dl (0.2-1) Aspartate Amino Transf (AST/SGOT) 27 U/L (15-37) Alanine Aminotransferase (ALT/SGPT) 31 U/L (12-78) Alkaline Phosphatase 69 U/L (45-117) Troponin I < 0.015 ng/ml (0-0.045) Total Protein 7.7 gm/dl (6.4-8.2) Albumin 3.7 gm/dl (3.4-5.0) Globulin 4.0 gm/dl (2.5-4.0) Albumin/Globulin Ratio 0.9 (0.9-2) Results Past 24 Hours Test 05/22/17 15:40 Range/Units White Blood Count 5.08 4.8-10.8 K/uL Red Blood Count 3.83 4.7-6.1 M/uL Hemoglobin 13.2 14.0-18.0 g/dL Hematocrit 36.9 42-52 % Mean Corpuscular Volume 96.3 80-100 fL Mean Corpuscular Hemoglobin 34.5 25-34 pg Mean Corpuscular Hemoglobin Concent 35.8 32-36 g/dl Platelet Count 224 130-400 K/uL Mean Platelet Volume 10.0 7.4-10.4 fL Neutrophils (%) (Auto) 54.1 % Lymphocytes (%) (Auto) 29.9 % Monocytes (%) (Auto) 12.6 % Eosinophils (%) (Auto) 3.0 % Basophils (%) (Auto) 0.2 % Neutrophils # (Auto) 2.75 1.4-6.5 K/uL Lymphocytes # (Auto) 1.52 1.2-3.4 K/uL Monocytes # (Auto) 0.64 0.11-0.59 K/uL Eosinophils # (Auto) 0.15 0-0.5 K/uL Basophils # (Auto) 0.01 0-0.2 K/uL RDW Standard Deviation 46.9 36.4-46.3 fL RDW Coefficient of Variation 13.4 11.5-14.5 % Immature Granulocyte % (Auto) 0.2 % Immature Granulocyte # (Auto) 0.01 0.00-0.02 K/uL Prothrombin Time 18.1 9.0-12.0 SECONDS Prothromb Time International Ratio 1.7 0.9-1.1 Activated Partial Thromboplast Time 27.5 21.0-31.0 SECONDS Partial Thromboplastin Ratio 1.1 Sodium Level 138 136-145 mmol/L Potassium Level 3.8 3.5-5.1 mmol/L Chloride Level 105 98-107 mmol/L Carbon Dioxide Level 26 21-32 mmol/L Anion Gap 7.0 3-11 mmol/L Blood Urea Nitrogen 17 7-18 mg/dl Creatinine 1.05 0.60-1.40 mg/dl Est Creatinine Clear Calc Drug Dose 53.4 ml/min Estimated GFR () 74.1 Estimated GFR (Non- 64.0 BUN/Creatinine Ratio 16.6 10-20 Random Glucose 115 70-99 mg/dl Calcium Level 9.3 8.5-10.1 mg/dl Total Bilirubin 0.5 0.2-1 mg/dl Aspartate Amino Transf (AST/SGOT) 27 15-37 U/L Alanine Aminotransferase (ALT/SGPT) 31 12-78 U/L Alkaline Phosphatase 69 45-117 U/L Troponin I < 0.015 0-0.045 ng/ml Total Protein 7.7 6.4-8.2 gm/dl Albumin 3.7 3.4-5.0 gm/dl Globulin 4.0 2.5-4.0 gm/dl Albumin/Globulin Ratio 0.9 0.9-2 Diagnostic Radiology SINGLE VIEW CHEST CLINICAL HISTORY: Transient ischemic attack. Weakness. FINDINGS: An AP, portable, upright chest radiograph is compared to study dated 02/19/2017. The examination is degraded by portable technique and patient rotation. A single lead cardiac pacemaker is unchanged in position. The patient is status post midline sternotomy. The heart is enlarged and there is atherosclerotic calcification of the thoracic aorta. There is pulmonary vascular congestion. There is bibasilar atelectasis. No airspace consolidation or large pleural effusion is identified. No pneumothorax is seen. The skeletal structures are osteopenic. Advanced arthritic change is noted in the shoulders and thoracic spine. IMPRESSION: 1. Cardiomegaly and cardiac pacemaker with evidence of congestive failure. 2. No airspace consolidation or large pleural effusion is identified. ----- CT SCAN OF THE BRAIN WITHOUT IV CONTRAST CLINICAL HISTORY: Transient ischemic attack. COMPARISON STUDY: CT of the brain dated 06/01/2008. TECHNIQUE: Unenhanced axial CT scan of the brain is performed from the vertex to the skull base. A dose lowering technique was utilized adhering to the principles of ALARA. CT DOSE: 537.48 mGy.cm FINDINGS: Brain parenchyma: There are age-related involutional changes noting moderate to advanced subcortical and periventricular microangiopathic change. There is no hemorrhage, mass effect, or evidence of acute territorial ischemia by CT criteria. Villanueva-white matter is preserved. No extra-axial fluid collection is seen. Ventricles, sulci, cisterns: Prominent secondary to involutional change. Intracranial vasculature: There is atherosclerotic calcification of the cavernous carotid and vertebral arteries. Calvarium: Unremarkable. Sinuses and mastoids: The visualized paranasal sinuses are clear. The mastoid air cells are well pneumatized. Orbits: The bony orbits are grossly intact. There are bilateral ocular lens implants. IMPRESSION: Senescent changes as above with no hemorrhage, mass effect, or evidence of acute territorial ischemia by CT criteria. EKG V-paced, afib, 69 Impression Assessment and Plan 86-year-old man presents with right facial right arm and right leg numbness and weakness for less than an hour. 1. TIA-symptoms consistent with TIA, however alternative cause could be statin induced myopathy as exercise was was provoking his statin induced myopathy symptoms and these were similar to what was experienced today. The patient is a non-smoker with atrial fibrillation and a subtherapeutic INR 1.7. He denies any history of stroke in the past. He has no neurologic deficits on exam. Will admit to equipment monitor phototypesetting overnight. CT of the brain was normal MRI is contraindicated secondary to pacemaker. Carotid ultrasound was ordered. Continue aspirin; statin contraindicated secondary to myopathy. Allow permissive hypertension overnight. Will consult neurology for additional recommendations. 2. Hypertension-allow permissive hypertension overnight. Patient is also due to receive Toprol-XL and Hytrin this evening. Will monitor. 3. Atrial fibrillation-rate controlled, patient has pacemaker in place. Continue Coumadin and will give dose that was missed today. Continue Toprol-XL for rate control. 4. BPH-continue Proscar and Hytrin DVT prophylaxis-Coumadin Full code as discussed with patient on admission Disposition-to telemetry Jodie Landa DO [facility]ist Resuscitation Status VTE Prophylaxis Will order VTE Prophylaxis: Yes
--- NOTE | 2017-05-22 21:15 | DIAGNOSTIC IMAGING REPORT ---
ULTRASOUND OF THE CAROTID ARTERIES CLINICAL HISTORY: Transient ischemic attack. COMPARISON STUDY: No priors. TECHNIQUE: Real-time, grayscale, and color Doppler sonography of the carotid arteries is performed. Images are reviewed in the transverse and longitudinal planes. FINDINGS: Blood pressure in the right arm measures 193/88 and blood pressure in the left arm measures 191/80. The carotid arteries are patent bilaterally and demonstrate antegrade flow. There is mild to moderate atherosclerotic plaque seen bilaterally. Normal doppler arterial waveforms are seen throughout. Velocity measurements are listed below. Common carotid peak systolic velocity (cm/sec): RIGHT: 103 LEFT: 101 ICA proximal peak systolic velocity (cm/sec): RIGHT: 56 LEFT: 50 ICA mid peak systolic velocity (cm/sec): RIGHT: 69 LEFT: 46 ICA distal peak systolic velocity (cm/sec): RIGHT: 55 LEFT: 50 ICA/CC peak systolic ratio: RIGHT: 0.7 LEFT: 0.5 Antegrade flow was shown in the vertebral arteries. The external carotid arteries are patent. IMPRESSION: 1. There is no sonographic evidence of hemodynamically significant stenosis in the right or left carotid arterial system. 2. Antegrade flow is shown in the vertebral arteries. Electronically signed by: Jefry Wright M.D. 05/22/2017 9:13 PM Dictated Date/Time: 05/22/2017 9:12 PM
[2017-05-22] MEDS ORDERED: WARFARIN SOD 2.5 MG TAB PO ONE (21:30)
[2017-05-22 21:54] VITALS: BP 197/97; PULSE 69; TEMP 36.6; Ht 170.2 cm; Wt 79.9 kg
[2017-05-22] MEDS ORDERED: NITR0.4S UT (21:56)
[2017-05-22] MEDS: METOPROLOL SUCC 50MG EXT REL TAB PO SCH (22:10)
[2017-05-22 23:04] VITALS: BP 174/71; PULSE 65; TEMP 36.4; O2SAT 95
[2017-05-23] VITALS (9 sets, daily range): BP systolic 135–177; BP diastolic 64–87; PULSE 60–72; TEMP 36.3–36.8; O2SAT 94–97
[2017-05-23] MEDS: LEVOTHYROXINE 25 MCG TAB PO SCH (05:38)
[2017-05-23 05:55] LABS: EOS % 3.2 %; EOS ABS # 0.14 K/uL (0-0.5); LYMPH % 30.4 %; LYMPH ABS # 1.32 K/uL (1.2-3.4); MEAN CELL VOLUME 96.6 fL (80-100); MEAN CORPUSCULAR HEMOGLOBIN 34.1 pg (25-34); MEAN CORPUSCULAR HGB CONC 35.3 g/dl (32-36); MEAN PLATELET VOLUME 9.9 fL (7.4-10.4); MONO % 12.4 %; MONO ABS # 0.54 K/uL (0.11-0.59); NEUT ABS # 2.34 K/uL (1.4-6.5); PLATELET COUNT 192 K/uL (130-400); RED CELL DISTRIBUTION WIDTH CV 13.4 % (11.5-14.5); RED CELL DISTRIBUTION WIDTH SD 46.6 fL (36.4-46.3); WHITE BLOOD COUNT 4.34 K/uL (4.8-10.8)
[2017-05-23 06:04] LABS: INR 1.7 (0.9-1.1)
[2017-05-23 06:25] LABS: CALCIUM 8.7 mg/dl (8.5-10.1); CREATININE 0.93 mg/dl (0.60-1.40); POTASSIUM 3.5 mmol/L (3.5-5.1)
[2017-05-23] MEDS: LISINOPRIL 40 MG TAB PO SCH (08:04)
[2017-05-23] MEDS: CYANOCOBALAMIN 500 MCG TAB (VIT B-12) PO SCH (08:04)
[2017-05-23] MEDS: CHOLECALCIFEROL 400 INTER.UNIT TAB PO SCH (08:04)
[2017-05-23] MEDS: ASPIRIN 81 MG ECTAB PO SCH (08:05)
[2017-05-23] MEDS: MULTIVITAMIN TAB PO SCH (08:05)
[2017-05-23] MEDS: FUROSEMIDE 20 MG TAB PO SCH (08:05)
[2017-05-23] MEDS ORDERED: WARFARIN SOD 2.5 MG TAB PO SCH ×2 (09:00→16:00)
[2017-05-23] MEDS ORDERED: FINASTERIDE 5 MG TAB PO SCH (09:00)
--- NOTE | 2017-05-23 09:39 | Clinical Documentation Query ---
ESTELLE Carpenter : CLINICAL DOCUMENTATION QUERY Patient is an 86 year old male presenting for evaluation and treatment of right leg and arm weakness. Noted subtherapeutic INR of 1.7 in the setting of atrial fibrillation. As appropriate, consider documentation as suggested below. Thank you. In your clinical opinion is this patient being managed for: ( x ) (Possible/Likely/Suspected) Embolic CVA due to atrial fibrillation in the setting of subtherapeutic INR ( ) Not Agree ( ) Other explanation of clinical findings (Please Explain) ( ) Unable to determine (Please Define) ( ) Need to Discuss Possibly TIA The medical record reflects the following clinical findings, treatment, and risk factors. Clinical Indicators: As above. Treatment: Coumadin, ASA, carotid ultrasound, telemetry Risk Factors: Age, atrial fibrillation, subtherapeutic INR, hypertension, tobacco abuse Please clarify and document your clinical opinion in the progress notes and discharge summary. Terms such as "probable", "suspected", "likely", "questionable", "possible", or "still to be ruled out" are acceptable. IF IN AGREEMENT, YOU MUST DOCUMENT ABOVE DIAGNOSTIC STATEMENT IN DAILY PROGRESS NOTES AND DISCHARGE SUMMARY. This document is not part of the patient's record. Thank You, Gregory Byrne, RN [phone]
--- NOTE | 2017-05-23 10:35 | ECHOCARDIOGRAM REPORT ---
*NOTICE TO RECEIVING REPUBLICAN AGENCY This information is strictly Confidential and protected under [place] law. [place] law prohibits you from making any further disclosure of this information unless further disclosure is expressly permitted by the written consent of the person to whom it pertains or is authorized by law. A general authorization for the release of medical or other information is not sufficient for this purpose. Hospital accepts no responsibility if the information is made available to any other person, INCLUDING THE PATIENT. Interpretation Summary * Name: ZAMZAM DEL ANGEL Study Date: 05/23/2017 07:17 AM BP: 159/76 mmHg * Patient Location: .[facility]\S\N280\S\2 HR: 61 * : 1930 (M/d/yyyy) Gender: Male Height: 67 in * Age: 86 yrs Ethnicity: [place] Weight: 193 lb * Ordering Physician: Jodie Landa * Referring Physician: Self, Referred * Performed By: Devi Abraham RDCS * * Reason For Study: TIA symptoms * BSA: 2.0 m2 * No cardiac source of emboli noted. * -- Conclusions -- * Injection of contrast documented no interatrial shunt. * The interatrial septum is intact with no evidence for an atrial septal defect. * The left ventricle is normal in size. * Left ventricular systolic function is normal. * Ejection Fraction = 55-60%. * The right ventricular systolic function is normal. * The left atrium is moderately dilated. * The right atrium is moderately dilated. * Mild valvular aortic stenosis. * Mild aortic regurgitation. * There is mild mitral regurgitation. * There is mild tricuspid regurgitation. * No cardiac source of emboli noted. Procedure Details * A complete two-dimensional transthoracic echocardiogram was performed (2D, M-mode, Doppler and color flow Doppler). * A saline contrast injection was performed to assess for cardiac shunting. * The injection was performed through an intravenous line in the left arm. * The attending nurse who injected the saline contrast was Jumana Sher RN. * A total of 20 cc of agitated saline was given. Left Ventricle * The left ventricle is normal in size. * There is normal left ventricular wall thickness. * Ejection Fraction = 55-60%. * Left ventricular systolic function is normal. * The left ventricular wall motion is normal. Right Ventricle * The right ventricle is normal size. * There is a pacemaker lead in the right ventricle. * The right ventricular systolic function is normal. Atria * The left atrium is moderately dilated. * The right atrium is moderately dilated. * Injection of contrast documented no interatrial shunt. * The interatrial septum is intact with no evidence for an atrial septal defect. Mitral Valve * There is a fibroelastic nodule at the tip of the anterior leaflet of the mitral valve otherwise the anatomy is normal. * There is mild mitral regurgitation. Tricuspid Valve * There is mild tricuspid regurgitation. Aortic Valve * The aortic valve is mildly sclerotic. * The aortic valve is tricuspid. The leaflet thickness if normal. There is no aortic stenosis, and no significant insufficiency. * Mild valvular aortic stenosis. * Mild aortic regurgitation. Pulmonic Valve * The pulmonic valve is not well seen, but is grossly normal. * Mild pulmonic valvular regurgitation. Great Vessels * The aortic root and proximal ascending aorta are normal sized. Pericardium/Pleural * There is no pericardial effusion. MMode 2D Measurements and Calculations IVSd 1.2 cm LVIDd 4.3 cm LVIDs 2.9 cm LVPWd 1.4 cm IVS/LVPW 0.84 FS 31.8 % EDV(Teich) 81.4 ml ESV(Teich) 32.4 ml EF(Teich) 60.2 % EDV(cubed) 77.4 ml ESV(cubed) 24.5 ml EF(cubed) 68.3 % LV mass(C)d 198.2 grams LV mass(C)dI 99.5 grams/m\S\2 SV(Teich) 49.0 ml SI(Teich) 24.6 ml/m\S\2 SV(cubed) 52.9 ml SI(cubed) 26.6 ml/m\S\2 Ao root diam 3.4 cm Ao root area 8.9 cm\S\2 ACS 1.3 cm LA dimension 4.5 cm asc Aorta Diam 3.6 cm LA/Ao 1.3 LVOT diam 2.0 cm LVOT area 3.0 cm\S\2 LVAd ap4 26.3 cm\S\2 LVLd ap4 8.1 cm EDV(MOD-sp4) 68.8 ml EDV(sp4-el) 72.0 ml LVAs ap4 15.7 cm\S\2 LVLs ap4 7.1 cm ESV(MOD-sp4) 28.5 ml ESV(sp4-el) 29.8 ml EF(MOD-sp4) 58.5 % EF(sp4-el) 58.7 % LVAd ap2 30.4 cm\S\2 LVLd ap2 8.2 cm EDV(MOD-sp2) 93.3 ml EDV(sp2-el) 95.8 ml LVAs ap2 17.7 cm\S\2 LVLs ap2 7.1 cm ESV(MOD-sp2) 36.8 ml ESV(sp2-el) 37.7 ml EF(MOD-sp2) 60.5 % EF(sp2-el) 60.7 % LVLd %diff 0.63 % EDV(MOD-bp) 80.2 ml LVLs %diff 0.21 % ESV(MOD-bp) 32.3 ml EF(MOD-bp) 59.7 % SV(MOD-sp4) 40.2 ml SI(MOD-sp4) 20.2 ml/m\S\2 SV(MOD-sp2) 56.4 ml SI(MOD-sp2) 28.3 ml/m\S\2 SV(MOD-bp) 47.9 ml SI(MOD-bp) 24.1 ml/m\S\2 SV(sp4-el) 42.2 ml SI(sp4-el) 21.2 ml/m\S\2 SV(sp2-el) 58.1 ml SI(sp2-el) 29.2 ml/m\S\2 Doppler Measurements and Calculations MV E max jerrell 94.6 cm/sec MV A max jerrell 45.6 cm/sec MV E/A 2.1 MV dec time 0.22 sec Ao V2 max 181.0 cm/sec Ao max PG 13.1 mmHg Ao max PG (full) 9.9 mmHg CHUCK(V,A) 1.5 cm\S\2 CHUCK(V,D) 1.5 cm\S\2 AI max jerrell 343.9 cm/sec AI max PG 47.3 mmHg AI dec slope 124.4 cm/sec\S\2 AI P1/2t 809.9 msec LV V1 max PG 3.2 mmHg LV V1 max 89.2 cm/sec PA V2 max 130.3 cm/sec PA max PG 6.8 mmHg PA acc slope 606.1 cm/sec\S\2 PA acc time 0.09 sec PI max jerrell 233.5 cm/sec PI max PG 21.8 mmHg PI dec slope 255.9 cm/sec\S\2 PI P1/2t 267.2 msec TR max jerrell 282.5 cm/sec PA pr(Accel) 39.4 mmHg
[2017-05-23] MEDS: WARFARIN SOD 5 MG TAB PO SCH (16:25)
--- NOTE | 2017-05-23 19:12 | Progress Note ---
Internal Med Progress Note Date of Service: May 23, 2017. Provider Documentation: SUBJECTIVE: sitting comfortably weakness and numbness on right side resolved ambulating ok' speech ok swallowing ok no headaches upset he has to stay one more day as inr subtherapeutic OBJECTIVE: Vital Signs-as noted below Exam: General-alert and oriented. Not in distress ENT-normal hearing. Neck-No neck masses Lungs-CTA b/l no wheezing or crackles Heart-S1 and S2 heard regular rate and rhythm no murmurs Abdomen-soft Bowels sounds present non tender no distension Extremities-no edema no erythema Neuro-alert and oriented moves extremities non focal Lab data as noted below. ASSESSMENT & PLAN: 86-year-old man presents with right facial right arm and right leg numbness and weakness for less than an hour. 1. TIA-symptoms consistent with TIA, possibly embolic secondary to a fib and subtherapeutic inr Ct head unremarkable cannot do MRI as patient has pacemaker symptoms resolved on aspirin on Coumadin for a fib inr 1.7 sub therapeutic increased Coumadin dose to 5mg today seen by neurology and appreciate inputs. 2. Hypertension on lisinopril, Toprol-XL and Hytrin. Will monitor. 3. Atrial fibrillation-rate controlled, patient has pacemaker in place. on Toprol-XL for rate control.Coumadin dose increased to 5mg as inr is 1.7 needs close f/u with Coumadin clinic. 4. BPH-continue Proscar and Hytrin DVT PROPHYLAXIS Coumadin DISPOSITION possible d/c in am if stable Vital Signs: Date Time Temp Pulse Resp B/P (MAP) Pulse Ox O2 Delivery O2 Flow Rate FiO2 05/24/17 07:45 Room Air 05/24/17 07:14 36.6 79 20 165/86 (112) 96 Room Air 05/24/17 04:00 Room Air 05/24/17 03:53 36.4 58 18 175/88 (117) 92 Room Air 05/24/17 00:00 Room Air 05/23/17 23:32 36.8 60 18 135/85 (102) 97 Room Air 05/23/17 20:59 72 177/83 (114) 05/23/17 20:00 Room Air 05/23/17 19:36 36.6 62 16 164/87 (112) 97 Room Air 05/23/17 16:00 Room Air 05/23/17 15:06 36.5 65 16 136/64 (88) 95 Room Air 05/23/17 12:00 95 Room Air 05/23/17 11:57 36.3 60 16 159/71 (100) 95 Room Air Lab Results: Results Past 24 Hours Test 05/24/17 05:19 Range/Units Prothrombin Time 18.9 9.0-12.0 SECONDS Prothromb Time International Ratio 1.8 0.9-1.1
[2017-05-23] MEDS: METOPROLOL SUCC 50MG EXT REL TAB PO SCH (21:00)
[2017-05-23] MEDS: FINASTERIDE 5 MG TAB PO SCH (21:28)
[2017-05-24] VITALS (9 sets, daily range): BP systolic 163–183; BP diastolic 75–88; PULSE 58–90; TEMP 36.4–36.6; O2SAT 92–97
[2017-05-24 06:09] LABS: INR 1.8 (0.9-1.1)
[2017-05-24] MEDS: LEVOTHYROXINE 25 MCG TAB PO SCH (06:21)
[2017-05-24] MEDS: CHOLECALCIFEROL 400 INTER.UNIT TAB PO SCH (07:58)
[2017-05-24] MEDS: MULTIVITAMIN TAB PO SCH (07:58)
[2017-05-24] MEDS: ASPIRIN 81 MG ECTAB PO SCH (07:58)
[2017-05-24] MEDS: FUROSEMIDE 20 MG TAB PO SCH (07:58)
[2017-05-24] MEDS: CYANOCOBALAMIN 500 MCG TAB (VIT B-12) PO SCH (07:58)
[2017-05-24] MEDS: LISINOPRIL 40 MG TAB PO SCH (07:59)
[2017-05-24] MEDS ORDERED: ENOXAPARIN 120 MG/0.8 ML SYR SQ ONE (10:45)
[2017-05-24] MEDS ORDERED: AMLODIPINE BESYLATE 5 MG TAB PO ONE (13:00)
--- NOTE | 2017-05-24 14:06 | Neurology Progress Notes ---
Neurology Progress Note Date of Service May 24, 2017. Arjun Castañeda is a 86 year old male who has a PMH AF with pacer, anemia, DL, HTN, previous [place], bladder CA, CAD presents with right face, arm, leg numbness and weakness that began at 3:30 PM today while he was reaching into his fridge and lasted approximately less than an hour. He states he tried to walk and his leg felt weak. He sat down and the weakness in his leg resolved. EMS was call and he was transported to the ED. His blood pressure on admission was 177/93 pulse 78 respirations 18 is oxygenating 96% on room air. All the symptoms resolve before reaching the ED. He reports starting a new workout routine yesterday doing the rowing machine and a few other cardio things. He states he feels he is back to his baseline. He is frustrated today because the INR is only increased to 1.8. They are giving him lovenox shots and trying to increase slowly. denies CP, SOB, abdominal pain, slurred speech, swallowing difficulty, N, V, one sided weakness, numbness tingling, falls. Objective Date Time Temp Pulse Resp B/P (MAP) Pulse Ox O2 Delivery O2 Flow Rate FiO2 05/24/17 12:00 Room Air 05/24/17 11:42 36.4 90 16 183/85 (117) 97 Room Air 05/24/17 07:45 Room Air 05/24/17 07:14 36.6 79 20 165/86 (112) 96 Room Air 05/24/17 04:00 Room Air 05/24/17 03:53 36.4 58 18 175/88 (117) 92 Room Air 05/24/17 00:00 Room Air 05/23/17 23:32 36.8 60 18 135/85 (102) 97 Room Air 05/23/17 20:59 72 177/83 (114) 05/23/17 20:00 Room Air 05/23/17 19:36 36.6 62 16 164/87 (112) 97 Room Air 05/23/17 16:00 Room Air 05/23/17 15:06 36.5 65 16 136/64 (88) 95 Room Air Last 24 Hours Test 05/24/17 05:19 Prothrombin Time 18.9 SECONDS Prothromb Time International Ratio 1.8 Imaging: no new imaging Exam: Gen: alert NAD lungs CTA CV irregular strength 5/5 biceps triceps hand garde manger bilaterally hip flex plantar flex ext 5/5 bilaterally Current Inpatient Medications Medications (Trade) Dose Ordered Sig/Sarah Route Start Time Stop Time Status Last Admin Dose Admin Aspirin (Ecotrin Tab) 81 mg QAM PO 05/23/17 09:00 06/22/17 08:59 05/24/17 07:58 81 MG Miscellaneous Information (Pharmacist Discharge Med Rec Consult) 1 ea UD PRN N/A 05/22/17 19:45 06/21/17 19:44 Acetaminophen (Tylenol Tab) 650 mg Q4H PRN PO 05/22/17 19:45 06/21/17 19:44 Ondansetron HCl (Zofran Inj) 4 mg Q6H PRN IV 05/22/17 19:45 06/21/17 19:44 Polyethylene (Miralax Powder Packet) 17 gm DAILY PRN PO 05/22/17 19:45 06/21/17 19:44 Cholecalciferol (Vitamin D Tab) 400 inter.unit DAILY PO 05/23/17 09:00 06/22/17 08:59 05/24/17 07:58 400 INTER.UNIT Cyanocobalamin (Vitamin B-12 Tab) 1,000 mcg DAILY PO 05/23/17 09:00 06/22/17 08:59 05/24/17 07:58 1,000 MCG Furosemide (Lasix Tab) 20 mg DAILY PO 05/23/17 09:00 06/22/17 08:59 05/24/17 07:58 20 MG Levothyroxine Sodium (Synthroid Tab) 25 mcg DAILYBB PO 05/23/17 06:30 06/22/17 06:29 05/24/17 06:21 25 MCG Lisinopril (Zestril Tab) 40 mg QAM PO 05/23/17 09:00 06/22/17 08:59 05/24/17 07:59 40 MG Multivitamins (Multivitamin Tab) 1 tab DAILY PO 05/23/17 09:00 06/22/17 08:59 05/24/17 07:58 1 TAB Nitroglycerin (Nitrostat Tab) 0.4 mg UD PRN UT 05/22/17 19:45 06/21/17 19:44 Sodium Chloride ([place] Nasal [place]) 2 sprays UD PRN NA 05/22/17 19:45 06/21/17 19:44 Terazosin HCl (Hytrin Cap) 10 mg HS PO 05/22/17 21:00 06/21/17 20:59 05/23/17 21:01 10 MG Metoprolol Succinate (Toprol Xl Tab) 100 mg HS PO 05/22/17 21:00 06/21/17 20:59 05/23/17 21:00 100 MG Warfarin Sodium (Coumadin Tab) 5 mg DAILY@16 PO 05/23/17 16:00 06/22/17 15:59 05/23/17 16:25 5 MG Finasteride (Proscar Tab) 5 mg HS PO 05/23/17 22:00 06/22/17 08:59 05/23/17 21:28 5 MG Amlodipine Besylate (Norvasc Tab) 5 mg QAM PO 05/25/17 09:00 06/24/17 08:59 Impression 86 year old male s/p TIA with resolve of symptoms x 1 hour Plan 1. optimize HTN, DL, DM age appropriate 2. TTE with no ASD 3. pacer interrogation done 4. CT head with no acute findings, no MRI due to pacer 5. carotid doppler no significant stenosis 6. INR 1.7 would continue to follow with coumadin clinic- is currently at 1.8 and receiving lovenox injections 7. PCP for medical management 8. PT/OT for discharge needs. does not seem to have any needs 9. continue aspirin 81 mg 10. will sign off for now call with questions concerns. I have seen and discussed above patient with Dr Irving Reddy, neurology No further events inr on the slow rise and on heparin for coverage exam non focal still irritable at need for continued stay but seeems more accepting of it than yesterday we are signing off for the present time but could reassess if needed Irving Reddy MD
[2017-05-24] MEDS: WARFARIN SOD 5 MG TAB PO SCH (15:42)
[2017-05-24] MEDS ORDERED: WARFARIN SOD 5 MG TAB PO SCH (16:00)
[2017-05-24] MEDS: HydrALAZINE 10 MG TAB PO SCH ×2 (16:44→20:19)
--- NOTE | 2017-05-24 16:50 | Progress Note ---
Internal Med Progress Note Date of Service: May 24, 2017. Provider Documentation: SUBJECTIVE: sitting comfortably on the chair no weakness and numbness ambulating fine' denies chest pain or sob afebrile ok to stay one more day OBJECTIVE: Vital Signs-as noted below Exam: General-alert and oriented. Not in distress ENT-normal hearing. Neck-No neck masses Lungs-CTA b/l no wheezing or crackles Heart-S1 and S2 heard regular rate and rhythm no murmurs Abdomen-soft Bowels sounds present non tender no distension Extremities-no edema no erythema Neuro-alert and oriented moves extremities non focal Lab data as noted below. ASSESSMENT & PLAN: 86-year-old man presents with right facial right arm and right leg numbness and weakness for less than an hour. 1. TIA-symptoms consistent with TIA, possibly embolic secondary to a fib and subtherapeutic inr Ct head unremarkable cannot do MRI as patient has pacemaker symptoms resolved on aspirin on Coumadin for a fib inr 1.7 sub therapeutic increased Coumadin dose to 5mg inr 1.8 today. bridged with Lovenox seen by neurology and appreciate inputs. 2. Hypertension on lisinopril, Toprol-XL and Hytrin. elevated. says developed leg swelling with amlodipine in the past. will start hydralazine and monitor 3. Atrial fibrillation-rate controlled, patient has pacemaker in place. on Toprol-XL for rate control.Coumadin dose increased to 5mg . inr is 1.8. bridged with Lovenox. needs close f/u with Coumadin clinic.f/u inr in am 4. BPH-continue Proscar and Hytrin DVT PROPHYLAXIS Coumadin DISPOSITION possible d/c in am if stable Vital Signs: Date Time Temp Pulse Resp B/P (MAP) Pulse Ox O2 Delivery O2 Flow Rate FiO2 05/24/17 16:44 79 163/87 (112) 05/24/17 16:15 36.4 83 18 175/75 (108) 95 Room Air 05/24/17 12:00 Room Air 05/24/17 11:42 36.4 90 16 183/85 (117) 97 Room Air 05/24/17 07:45 Room Air 05/24/17 07:14 36.6 79 20 165/86 (112) 96 Room Air 05/24/17 04:00 Room Air 05/24/17 03:53 36.4 58 18 175/88 (117) 92 Room Air 05/24/17 00:00 Room Air 05/23/17 23:32 36.8 60 18 135/85 (102) 97 Room Air 05/23/17 20:59 72 177/83 (114) 05/23/17 20:00 Room Air 05/23/17 19:36 36.6 62 16 164/87 (112) 97 Room Air Lab Results: Results Past 24 Hours Test 05/24/17 05:19 Range/Units Prothrombin Time 18.9 9.0-12.0 SECONDS Prothromb Time International Ratio 1.8 0.9-1.1
[2017-05-24] MEDS: FINASTERIDE 5 MG TAB PO SCH (20:19)
[2017-05-24] MEDS: METOPROLOL SUCC 50MG EXT REL TAB PO SCH (20:19)
[2017-05-25 00:05] VITALS: BP 121/68; PULSE 65; TEMP 36.7; O2SAT 96
[2017-05-25 03:30] VITALS: BP 131/67; PULSE 61; TEMP 36.5; O2SAT 94
[2017-05-25] MEDS: LEVOTHYROXINE 25 MCG TAB PO SCH (05:19)
[2017-05-25 06:18] LABS: INR 2.4 (0.9-1.1)
[2017-05-25 06:58] VITALS: BP 159/78; PULSE 83; TEMP 36.3; O2SAT 94
[2017-05-25] MEDS: HydrALAZINE 10 MG TAB PO SCH (07:56)
[2017-05-25] MEDS: ASPIRIN 81 MG ECTAB PO SCH (07:56)
[2017-05-25] MEDS: CYANOCOBALAMIN 500 MCG TAB (VIT B-12) PO SCH (07:57)
[2017-05-25] MEDS: MULTIVITAMIN TAB PO SCH (07:57)
[2017-05-25] MEDS: FUROSEMIDE 20 MG TAB PO SCH (07:57)
[2017-05-25] MEDS: CHOLECALCIFEROL 400 INTER.UNIT TAB PO SCH (07:57)
[2017-05-25] MEDS: LISINOPRIL 40 MG TAB PO SCH (07:57)
[2017-05-25] MEDS ORDERED: AMLODIPINE BESYLATE 5 MG TAB PO SCH (09:00)
[2017-05-25] MEDS ORDERED: APR10 PO ×2 (10:59→11:10)
[2017-05-25] MEDS ORDERED: WARF2TAB PO ×2 (10:59→11:10)
--- NOTE | 2017-05-25 11:07 | Discharge Instructions ---
Discharge Instructions Date of Service May 25, 2017. Admission Reason for Admission: TIA Discharge Discharge Diagnosis / Problem: TIA Discharge Goals Goal(s): Decrease discomfort, Improve function Activity Recommendations Activity Limitations: resume your previous activity . Instructions / Follow-Up Instructions / Follow-Up FOLLOWUP WITH FAMILY DOCTOR ON May AT 11:05AM. TO TAKE COUMADIN 4MG DAILY ( TWO 2MG TABLETS) UNTIL FURTHER RECOMMENDATIONS FROM COUMADIN CLINIC. LAB: PT/INR TOMORR AND Monday AND FOLLOW RESULTS WITH COUMADIN CLINIC. COUMADIN CLINIC NOTIFIED. ALSO STARTED ON NEW BLOOD PRESSURE MEDICATION HYDRALAZINE 10MG PO THREE TIMES DAILY. FOLLOWUP WITH CARDIOLOGY IN 3-4 WEEKS Risk Factors for Stroke: You can reduce your chances of stroke by working with your medical provider to adopt a healthy lifestyle. Some specific ways to lower your chance of stroke are: * If you are a smoker, now is the time to stop smoking cigarettes * If you are diabetic, improve the control of your blood sugars * Avoid excessive amounts of alcohol * Control high blood pressure * Lose weight if you are overweight * Be sure to lead an active lifestyle * Eat a healthy diet low in salt, cholesterol and fat You should know about other risk factors for stroke that you are unable to control. These include: * Age 55 years or older * Male gender * Certain racial groups: , or / * Family History of Stroke, Mini stroke or Heart Attack * Sickle Cell Disease Follow Up: It is important for you to keep your follow up appointments with your medical provider. Current Hospital Diet Patient's current hospital diet: AHA Diet (Heart Healthy) Discharge Diet Recommended Diet: AHA Diet (Heart Healthy) Pending Studies Studies pending at discharge: no Medical Emergencies . Who to Call and When: Medical Emergencies: Call 911 immediately if you experience any of the following warning signs and symptoms of Stroke: * Sudden numbness or weakness of the face, arm or leg, especially on one side of the body * Sudden confusion, trouble speaking or understanding * Sudden trouble seeing in one or both eyes * Sudden trouble walking, dizziness, loss of balance or coordination * Sudden severe headache with no cause Do not delay calling 911 if you experience any warning signs or symptoms of a stroke. Delay in seeking medical attention may affect what treatments can be given to you. . Non-Emergent Contact Non-Emergency issues call your: Primary Care Provider . . "Provider Documentation" section prepared by Craig Polanco. . Stroke Core Measures Reason no t-PA for Stroke: Treatment not indicated Reason no antithrom by day 2: Treatment provided - N/A Reason no antithrom at D/C: Treatment provided - N/A Reason no statin at D/C: Drug intolerance Reason no anticoag w/a fib: Treatment provided - N/A
[2017-05-25 11:27] VITALS: BP 159/78; PULSE 83; TEMP 36.3; O2SAT 94
--- NOTE | 2017-05-25 12:45 | Pharmacy Progress Note ---
Pharmacist Stroke Counseling Date of Service May 25, 2017. Scope Pharmacy has been consulted to provide medication discharge counseling for this patient admitted with transient ischemic attack as per the Pharmacist Discharge Counseling for Stroke Patients Protocol. Medications on Discharge New Medications: Hydralazine HCl (Hydralazine HCl) 10 Mg Tab 10 MG PO TID for 30 Days, #90 TAB 1 Refill Warfarin Sodium (Coumadin) 2 Mg Tab 4 MG PO DAILY for 30 Days, #60 TAB 1 Refill Continued Medications: Aspirin (Aspirin Ec) 81 Mg Tab 81 MG PO Q2D Cholecalciferol (D-400) 400 Unit Tab 400 INTER.UNIT PO DAILY Cyanocobalamin (Vitamin B-12) 1,000 Mcg Tab 1000 MCG PO DAILY, TAB Finasteride (Finasteride) 5 Mg Tab 5 MG PO DAILY Furosemide (Furosemide) 20 Mg Tab 20 MG PO DAILY TAKE 1 TABLET DAILY. TAKE AN ADDITIONAL TABLET 1 TO 2 DAYS PER WEEK. Levothyroxine Sodium (Levothyroxine Sodium) 25 Mcg Tab 25 MCG PO DAILY, TAB Lisinopril (Lisinopril) 40 Mg Tab 40 MG PO QAM Metoprolol Succinate (Metoprolol Succinate ER) 100 Mg Tabcr 100 MG PO DAILY Multivitamin (Multivitamin) Tab 1 TAB PO DAILY Nitroglycerin (Nitrostat) 0.4 Mg Sub 0.4 MG UT UD PRN for Chest Pain, BTL Saline (Saline Nasal [place]) 0.65 % Spr 2 SPRAYS NA UD PRN for Nasal Congestion USE PER PACKAGE DIRECTIONS Terazosin Hcl (Hytrin) 10 Mg Cap 10 MG PO HS, CAP Discontinued Medications: Warfarin Sodium (Warfarin Sodium) 2.5 Mg Tab 2.5 MG PO DAILY TAKE 2.5 MG EVERY DAY OR OTHERWISE DIRECTED TO TAKE BY ANTICOAGULATION CLINIC/MD Kaufman Patient and his were counseled on Warfarin and Aspirin especially today. This includes indication, common adverse reactions, drug interactions, and medication administration. Also counseled patient briefly about having consistent amount of dietary Vitamin K since it can counter-act the effects of Warfarin. Medication counseling has been employed using the teach-back method to ensure understanding. Outcome The patient and his have demonstrated understanding of the medications. Please note, they are aware that the pharmacist will call them within 72 hours post-discharge to confirm that the appropriate medications are being taken and answer any further medication related questions the patient might have at that time. Contact information Individual to be contacted: Patient Relationship to patient (if applicable): N/A Phone number: [phone] Best time to call: Monday (05/29) afternoon. Additional comments: Patient told me he had been on Warfarin for over 20 years now so he is well experienced. Technically the only new med today is Hydralazine. He said he follows up with the [facility] Coumadin clinic in [place] once monthly. He told me his INR was 1.7 on admission and he knows it is supposed to be above 2.0. He understands that this sub-therapeutic level could have contributed to his TIA. He said he's been on 2.5 mg Warfarin daily for a long time. I advised more frequent monitoring at the Coumadin clinic would help to ensure therapeutic INRs. I also noted that he is supposed to take 4 mg of Warfarin today (dose change from before) and check INR tomorrow and on Monday. Both patient and his agreed. Thank you for allowing pharmacy to be involved in the care of this patient. Please call [phone] or [phone] with any additional questions Discharge Information Wafarin 4 mg today, check INR tomorrow (05/26), follow instructions from Coumadin clinic.
--- NOTE | 2017-05-25 18:07 | Progress Note ---
Internal Med Progress Note Date of Service: May 25, 2017. Provider Documentation: SUBJECTIVE: sitting comfortably on the chair no weakness no sob or any pain afebrile awaiting discharge OBJECTIVE: Vital Signs-as noted below Exam: General-alert and oriented. Not in distress ENT-normal hearing. Neck-No neck masses Lungs-CTA b/l no wheezing or crackles Heart-S1 and S2 heard regular rate and rhythm no murmurs Abdomen-soft Bowels sounds present non tender no distension Extremities-no edema no erythema Neuro-alert and oriented moves extremities non focal Lab data as noted below. ASSESSMENT & PLAN: 86-year-old man presents with right facial right arm and right leg numbness and weakness for less than an hour. 1. TIA-symptoms consistent with TIA, possibly embolic secondary to a fib and subtherapeutic inr Ct head unremarkable cannot do MRI as patient has pacemaker symptoms resolved on aspirin on Coumadin for a fib inr 1.7 sub therapeutic. at home on Coumadin 2.5mg daily increased Coumadin dose to 5mg bridged with Lovenox seen by neurology and appreciate inputs. inr 2.4 today after two doses of 5mg coumadin. discharged on Coumadin 4mmg daily until further notice form Coumadin clinic. Notified Coumadin clinic. Patient could not tolerate statins in the past and says his pcp and cardiology planning on a different cholesterol lowering meds. Says he will d/w about it on his appointment with his pcp. On aspirin every other day at home and likes to be on same home dose 2. Hypertension on lisinopril, Toprol-XL and Hytrin. elevated. says developed leg swelling with amlodipine in the past. will start hydralazine and monitor added hydralazine 10mg tid. f/u with pcp and cardiology 3. Atrial fibrillation-rate controlled, patient has pacemaker in place. on Toprol-XL for rate control.Coumadin dose as above. s/p pace maker interrogation 4. BPH-continue Proscar and Hytrin Discharged home in stable condition. Vital Signs: Date Time Temp Pulse Resp B/P (MAP) Pulse Ox O2 Delivery O2 Flow Rate FiO2 05/25/17 11:27 36.3 83 20 94 Room Air 05/25/17 07:45 Room Air 05/25/17 06:58 36.3 83 20 159/78 (105) 94 Room Air 05/25/17 04:00 Room Air 05/25/17 03:30 36.5 61 18 131/67 (88) 94 Room Air 05/25/17 00:05 36.7 65 18 121/68 (85) 96 Room Air 05/25/17 00:00 Room Air 05/24/17 21:00 36.6 76 19 165/79 (107) 97 Room Air 05/24/17 20:18 70 172/75 (107) 05/24/17 20:00 97 Room Air Lab Results: Results Past 24 Hours Test 05/25/17 05:17 Range/Units Prothrombin Time 24.3 9.0-12.0 SECONDS Prothromb Time International Ratio 2.4 0.9-1.1
--- NOTE | 2017-05-25 18:10 | Discharge Summary ---
Discharge Summary Date of Service May 25, 2017. Discharge Summary Admission Date: May 22, 2017 at 19:39 Discharge Date: May 25, 2017 Discharge Disposition: Home Principal Diagnosis: TIA Procedures: CT HEAD: Senescent changes as above with no hemorrhage, mass effect, or evidence of acute territorial ischemia by CT criteria. CXR: 1. Cardiomegaly and cardiac pacemaker with evidence of congestive failure. 2. No airspace consolidation or large pleural effusion is identified. CAROTID US: 1. There is no sonographic evidence of hemodynamically significant stenosis in the right or left carotid arterial system. 2. Antegrade flow is shown in the vertebral arteries. ECHO:Injection of contrast documented no interatrial shunt. * The interatrial septum is intact with no evidence for an atrial septal defect. * The left ventricle is normal in size. * Left ventricular systolic function is normal. * Ejection Fraction = 55-60%. * The right ventricular systolic function is normal. * The left atrium is moderately dilated. * The right atrium is moderately dilated. * Mild valvular aortic stenosis. * Mild aortic regurgitation. * There is mild mitral regurgitation. * There is mild tricuspid regurgitation. * No cardiac source of emboli noted. Consultations: NEUROLOGY Medication Reconciliation New Medications: Hydralazine HCl (Hydralazine HCl) 10 Mg Tab 10 MG PO TID for 30 Days, #90 TAB 1 Refill Warfarin Sodium (Coumadin) 2 Mg Tab 4 MG PO DAILY for 30 Days, #60 TAB 1 Refill Continued Medications: Aspirin (Aspirin Ec) 81 Mg Tab 81 MG PO Q2D Cholecalciferol (D-400) 400 Unit Tab 400 INTER.UNIT PO DAILY Cyanocobalamin (Vitamin B-12) 1,000 Mcg Tab 1000 MCG PO DAILY, TAB Finasteride (Finasteride) 5 Mg Tab 5 MG PO DAILY Furosemide (Furosemide) 20 Mg Tab 20 MG PO DAILY TAKE 1 TABLET DAILY. TAKE AN ADDITIONAL TABLET 1 TO 2 DAYS PER WEEK. Levothyroxine Sodium (Levothyroxine Sodium) 25 Mcg Tab 25 MCG PO DAILY, TAB Lisinopril (Lisinopril) 40 Mg Tab 40 MG PO QAM Metoprolol Succinate (Metoprolol Succinate ER) 100 Mg Tabcr 100 MG PO DAILY Multivitamin (Multivitamin) Tab 1 TAB PO DAILY Nitroglycerin (Nitrostat) 0.4 Mg Sub 0.4 MG UT UD PRN for Chest Pain, BTL Saline (Saline Nasal [place]) 0.65 % Spr 2 SPRAYS NA UD PRN for Nasal Congestion USE PER PACKAGE DIRECTIONS Terazosin Hcl (Hytrin) 10 Mg Cap 10 MG PO HS, CAP Discontinued Medications: Warfarin Sodium (Warfarin Sodium) 2.5 Mg Tab 2.5 MG PO DAILY TAKE 2.5 MG EVERY DAY OR OTHERWISE DIRECTED TO TAKE BY ANTICOAGULATION CLINIC/MD Admission Information HPI (per Admitting provider): 86-year-old man presents with right face, arm, leg numbness and weakness that began at 3:30 PM today while he was reaching into his fridge and lasted approximately less than an hour. He denies any difficulty speaking, swallowing , mentating, denies headache, visual changes, and was able to walk. He did report feeling uncoordinated with respect to his fingers and with his walking. He denies ever having any symptoms in the past. He was transported via EMS to the ER. On arrival blood pressure was 177/93 pulse 78 respirations 18 is oxygenating 96% on room air. The patient was afebrile. Symptoms had resolved by this point. Lab work was performed and unremarkable in EKG revealed atrial fibrillation with a V paced rhythm and a rate of 69. Chest x-ray and CT head were unremarkable for acute changes. He reports an intolerance to statins after being on them for several years and going through multiple different kinds. He recently reports in the last few months developing muscle aches that caused him leg weakness and leg pain. He reports being finally taken off the statins 2 weeks ago and states that since that time he has still intermittently felt this pain and weakness in his legs especially. He reports starting a new workout routine yesterday doing the rowing machine and a few other cardio things. He reports walking excessively and lows today for 3 hours doing some shopping. This occurred prior to the onset of symptoms. 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 Physical Exam (per Admitting): General Appearance: WD/WN, no apparent distress Head: normocephalic, atraumatic Eyes: normal inspection, PERRL, EOMI, sclerae normal ENT: hearing grossly normal, + pertinent finding Neck: no JVD, trachea midline Respiratory/Chest: lungs clear, normal breath sounds, no respiratory distress, no accessory muscle use Cardiovascular: no edema, no gallop, no JVD, no murmur, + irregularly irregular Abdomen/GI: normal bowel sounds, non tender, soft, + pertinent finding ( Ventral hernia reducible) Extremities/Musculoskelatal: normal inspection, no pedal edema, normal range of motion Neurologic/Psych: soap slabber II-XII nml as tested, no motor/sensory deficits, alert , normal mood/affect, normal reflexes, oriented x 3 Skin: normal color, warm/dry Hospital Course 86-year-old man presents with right facial right arm and right leg numbness and weakness for less than an hour. 1. TIA-symptoms consistent with TIA, possibly embolic secondary to a fib and subtherapeutic inr Ct head unremarkable cannot do MRI as patient has pacemaker symptoms resolved on aspirin on Coumadin for a fib inr 1.7 sub therapeutic. at home on Coumadin 2.5mg daily increased Coumadin dose to 5mg bridged with Lovenox seen by neurology and appreciate inputs. inr 2.4 today after two doses of 5mg coumadin. discharged on Coumadin 4mmg daily until further notice form Coumadin clinic. Notified Coumadin clinic. Patient could not tolerate statins in the past and says his pcp and cardiology planning on a different cholesterol lowering meds. Says he will d/w about it on his appointment with his pcp. On aspirin every other day at home and likes to be on same home dose 2. Hypertension on lisinopril, Toprol-XL and Hytrin. elevated. says developed leg swelling with amlodipine in the past. will start hydralazine and monitor added hydralazine 10mg tid. f/u with pcp and cardiology 3. Atrial fibrillation-rate controlled, patient has pacemaker in place. on Toprol-XL for rate control.Coumadin dose as above. s/p pace maker interrogation 4. BPH-continue Proscar and Hytrin Discharged home in stable condition. Total time spent on discharge = 35MINUTES This includes examination of the patient, discharge planning, medication reconciliation, and communication with other providers. Discharge Instructions Please take this sheet to every appointment for the next month Discharge Instructions Date of Service May 25, 2017. Admission Reason for Admission: TIA Discharge Discharge Diagnosis / Problem: TIA Discharge Goals Goal(s): Decrease discomfort, Improve function Activity Recommendations Activity Limitations: resume your previous activity . Instructions / Follow-Up Instructions / Follow-Up FOLLOWUP WITH FAMILY DOCTOR ON May AT 11:05AM. TO TAKE COUMADIN 4MG DAILY ( TWO 2MG TABLETS) UNTIL FURTHER RECOMMENDATIONS FROM COUMADIN CLINIC. LAB: PT/INR TOMORR AND Monday AND FOLLOW RESULTS WITH COUMADIN CLINIC. COUMADIN CLINIC NOTIFIED. ALSO STARTED ON NEW BLOOD PRESSURE MEDICATION HYDRALAZINE 10MG PO THREE TIMES DAILY. FOLLOWUP WITH CARDIOLOGY IN 3-4 WEEKS Risk Factors for Stroke: You can reduce your chances of stroke by working with your medical provider to adopt a healthy lifestyle. Some specific ways to lower your chance of stroke are: * If you are a smoker, now is the time to stop smoking cigarettes * If you are diabetic, improve the control of your blood sugars * Avoid excessive amounts of alcohol * Control high blood pressure * Lose weight if you are overweight * Be sure to lead an active lifestyle * Eat a healthy diet low in salt, cholesterol and fat You should know about other risk factors for stroke that you are unable to control. These include: * Age 55 years or older * Male gender * Certain racial groups: , or / * Family History of Stroke, Mini stroke or Heart Attack * Sickle Cell Disease Follow Up: It is important for you to keep your follow up appointments with your medical provider. Current Hospital Diet Patient's current hospital diet: AHA Diet (Heart Healthy) Discharge Diet Recommended Diet: AHA Diet (Heart Healthy) Pending Studies Studies pending at discharge: no Medical Emergencies . Who to Call and When: Medical Emergencies: Call 911 immediately if you experience any of the following warning signs and symptoms of Stroke: * Sudden numbness or weakness of the face, arm or leg, especially on one side of the body * Sudden confusion, trouble speaking or understanding * Sudden trouble seeing in one or both eyes * Sudden trouble walking, dizziness, loss of balance or coordination * Sudden severe headache with no cause Do not delay calling 911 if you experience any warning signs or symptoms of a stroke. Delay in seeking medical attention may affect what treatments can be given to you. . Non-Emergent Contact Non-Emergency issues call your: Primary Care Provider . . "Provider Documentation" section prepared by Craig Polanco. . Stroke Core Measures Reason no t-PA for Stroke: Treatment not indicated Reason no antithrom by day 2: Treatment provided - N/A Reason no antithrom at D/C: Treatment provided - N/A Reason no statin at D/C: Drug intolerance Reason no anticoag w/a fib: Treatment provided - N/A
--- NOTE | 2017-05-29 14:43 | Pharmacy Progress Note ---
Pharmacist Post D/C Phone Note Medications Dose Route/Sig Max Daily Dose Days Date Category Dose Instructions Coumadin (Warfarin Sodium) 2 Mg Tab 4 Mg PO DAILY 30 05/25/17 Rx Hydralazine HCl 10 Mg Tab 10 Mg PO TID 30 05/25/17 Rx Saline Nasal [place] (Saline) 0.65 % Spr 2 Sprays NA UD PRN 05/22/17 Reported USE PER PACKAGE DIRECTIONS Finasteride 5 Mg Tab 5 Mg PO DAILY 05/22/17 Reported Furosemide 20 Mg Tab 20 Mg PO DAILY 05/22/17 Reported TAKE 1 TABLET DAILY. TAKE AN ADDITIONAL TABLET 1 TO 2 DAYS PER WEEK. Metoprolol Succinate ER (Metoprolol Succinate) 100 Mg Tabcr 100 Mg PO DAILY 05/22/17 Reported Lisinopril 40 Mg Tab 40 Mg PO QAM 05/22/17 Reported D-400 (Cholecalciferol) 400 Unit Tab 400 Inter.unit PO DAILY 02/19/17 Reported Vitamin B-12 (Cyanocobalamin) 1,000 Mcg Tab 1,000 Mcg PO DAILY 02/19/17 Reported Levothyroxine Sodium 25 Mcg Tab 25 Mcg PO DAILY 02/19/17 Reported Hytrin (Terazosin HCl) 10 Mg Cap 10 Mg PO HS 06/02/15 Reported Aspirin Ec (Aspirin) 81 Mg Tab 81 Mg PO Q2D 06/02/15 Reported Nitrostat (Nitroglycerin) 0.4 Mg Sub 0.4 Mg UT UD PRN 07/29/12 Reported Multivitamin (Multivitamins) Tab 1 Tab PO DAILY 03/20/08 Reported Date of phone call: May 29, 2017. Individual with whom pharmacist spoke to: [Patient] The following questions were reviewed during the phone call with responses listed below each: Can you tell me the medications that you are currently taking as well as when and how you take each medication? -patient was able to tell me his new medications, was in a hurry so not able to address all of his old medications however he assured me he is taking them the same and no changes When have you missed any doses of your medications? - patient told me he has not missed any doses, he does not have a pill box at home however he does have a system in place so that he does not forget to take his medications What side effects are you having from your medications? - not complaining of any side effects - went to his coumadin clinic today for INR check (INR ~2); no reports of increase in bruising/bleeding What questions do you have about your medications? - no questions What problems are you having obtaining your medications? - n/a When is your next appointment with your primary care doctor? - He sees his PCP tomorrow Additional comments: - Patient very pleasant to chat with, however was in a hurry so could not talk very long. Seemed very knowledgeable about his medications. Only new medication he had was the hydralazine and he reports taking his blood pressure periodically at home with his bp cuff. Has been on warfarin in the past so very familiar with it. No questions during interview, states he is doing very well As per the Pharmacist Discharge Counseling for Stroke Patients Protocol, this phone call has been completed within 72 hours of discharge. Thank you for allowing us to be involved in the care of this patient.
== END 2017-05-25 13:00 | disposition home or self-care (01) | DRG 69 ==
LOC: EDBD 15:39 → C.EDB 15:39 → C.MED 19:39 → EDBEDREQ 19:44 → ENRESERV 20:11
PROVIDERS: ADMIT Hospitalist; ATTEND Internal Medicine
DX: G45.9 Transient cerebral ischemic attack, unspecified (principal); I48.91 Unspecified atrial fibrillation; I10 Essential (primary) hypertension; N40.0 Benign prostatic hyperplasia without lower urinary tract symptoms; E78.5 Hyperlipidemia, unspecified; Z79.01 Long term (current) use of anticoagulants; I25.2 Old myocardial infarction; Z85.828 Personal history of other malignant neoplasm of skin; Z95.0 Presence of cardiac pacemaker; Z95.1 Presence of aortocoronary bypass graft; Z88.8 Allergy status to other drugs, medicaments and biological substances; R79.1 Abnormal coagulation profile; Z87.891 Personal history of nicotine dependence

== ENCOUNTER 2019-03-27 03:04 | Inpatient (IN) ==
[2019-03-27] MEDS ORDERED: ASPIRIN 81 MG CHEW PO STA (03:24)
[2019-03-27] MEDS ORDERED: GI COCKTAIL ED USE PO ONE (03:24)
[2019-03-27] MEDS ORDERED: NITROGLYCERIN SL 0.4 MG/TAB TAB SL STA (03:24)
[2019-03-27 03:35] LABS: Basophils # (auto) 0.01 K/uL (0-0.2); Basophils % (auto) 0.1 %; Eosinophils % (auto) 1.3 %; Hematocrit (blood only) 27.8 % (42-52); Hemoglobin 10.4 g/dL (14.0-18.0); Immature Granulocytes # (auto) 0.12 K/uL (0.00-0.02); Immature Granulocytes % (auto) 1.6 %; Lymphocytes # (auto) 1.16 K/uL (1.2-3.4); Lymphocytes % (auto) 15.5 %; Mean Corpuscular Hemoglobin 35.7 pg (25-34); Mean Corpuscular Hgb Conc 37.4 g/dL (32-36); Mean Corpuscular Volume 95.5 fL (80-100); Mean Platelet Volume 8.6 fL (7.4-10.4); Monocytes # (auto) 0.76 K/uL (0.11-0.59); Monocytes % (auto) 10.2 %; Neutrophils # (auto) 5.32 K/uL (1.4-6.5); Neutrophils % (auto) 71.3 %; Platelet Count 333 K/uL (130-400); RDW Coefficient of Variation 12.2 % (11.5-14.5); RDW Standard Deviation 42.7 fL (36.4-46.3); Red Blood Count 2.91 M/uL (4.7-6.1); White Blood Count 7.47 K/uL (4.8-10.8)
[2019-03-27 03:59] LABS: Alanine Aminotransferase 20 U/L (12-78); Albumin Level 2.6 gm/dl (3.4-5.0); Aspartate Aminotransferase 14 U/L (15-37); BUN Creatinine Ratio 15.4 (10-20); Bilirubin Direct 0.1 mg/dl (0-0.2); Blood Urea Nitrogen 18 mg/dl (7-18); Calcium 9.1 mg/dl (8.5-10.1); Carbon Dioxide 26 mmol/L (21-32); Chloride 98 mmol/L (98-107); Creatinine Clr Calc Pharmacy 43.7 ml/min; Est GFR (African American) 65.5; Est GFR (Non-African American) 56.5; Glucose 211 mg/dl (70-99); Potassium 3.9 mmol/L (3.5-5.1); Sodium 131 mmol/L (136-145)
[2019-03-27 04:00] LABS: Partial Thromboplastin Ratio 1.9; Prothrombin Time 82.1 Seconds (9.0-12.0)
[2019-03-27 04:04] LABS: Alkaline Phosphatase 80 U/L (45-117); Bilirubin,Total 0.4 mg/dl (0.2-1); Total Protein 7.6 gm/dl (6.4-8.2); Troponin I < 0.015 ng/ml (0-0.045)
--- NOTE | 2019-03-27 04:15 | Emergency Department Note ---
Entered by Abiodun Esparza acting as a scribe for ED Provider Note Name: Garry Wood Age: 88 Arrives Via: Walk in Informant: Patient CC: Chest pain HPI: The patient is an 88 year old male who presents to the emergency department with complaints of constant chest pain beginning last night. The patient states that he has had congestion and a productive cough for the last two weeks. He notes that he developed center chest pain last night. He reports that he did not take anything for his symptoms. The patient states that his pain feels like he artburn. He denies any SOB and nausea. He notes that he has a pacemaker and a history of a coronary bypass, and he reports that he is on Coumadin. ROS: See above HPI for pertinent positives & negatives. A total of 10 systems reviewed and were otherwise negative. Past Medical History: Afib, bladder cancer, TIA Past Surgical History: Coronary bypass, pacemaker Family History: None Social History: Former smoker, lives with family Home Medications: Please see medication list Allergies: Wexroqj-Ydr-Uya Reductase Inhibitor Physical: Vitals: BP 159/77, Pulse 93, Resp 18, Temp 97.5 F, O2 Sat 98 Exam: GENERAL: Patient is elderly appearing and in no acute distress. EYES: No scleral icterus, unremarkable pupils. ENT: Mucous membranes moist, no nasal congestion. NECK: No masses appreciated, no meningismus, trachea is midline. RESPIRATORY: No dyspnea. Clear to auscultation and equal bilaterally. No wheeze, no rhonchi. CARDIOVASCULAR: Irregular heartbeat. No murmurs, rubs, gallops appreciated. Pacemaker in left upper chest. GASTROINTESTINAL: Abdomen soft, non-tender, no peritonitis. Bowel sounds positive. No masses appreciated. BACK: No midline tenderness, no CVA tenderness EXTREMITIES: Normal motion all extremities, no cyanosis. Left leg edema (chronic). NEUROLOGIC: Alert and oriented, no acute motor or sensory deficits, no focal weakness, cranial nerves grossly intact. SKIN: No rash, no jaundice, no diaphoresis. ED Course: Prior Medical Record, Triage/Nursing Notes, Medications, Allergies reviewed by Me 0318: The patient was evaluated in room B2. A complete history and physical exam was performed. 0412: I rechecked the patient. He has no further pain. 0414: Dr. Polanco - Hospitalist [facility], was paged. 0423: Upon reevaluation, the patient is stable. I discussed the findings and the treatment plan with the patient. He expresses agreement and understanding. I spoke with Dr. Polanco of the [facility] Hospitalist Service. The patient will be evaluated for further management. 0424: I rechecked the patient. He is stable and comfortable with hospitalization. Vital Signs: reviewed and remarkable for htn Labs: Reviewed and remarkable for elevated INR Interventions: saline lock, gi cocktail, slntg, asa 324 mg po Imaging: CHEST X-RAY: X ray results are stated below per my interpretation: Chest: 1 view: No infiltrate, no effusion, normal cardiac border. EKG: Per My Interpretation: Indication Chest Pain: Ventricular paced. 85 bpm. QTC 530. No ectopy. Compared to EKG 06/17/18, no significant changes though rate has increased Consults: 0423: I reviewed the patient's case with Dr. Polanco - Hospitalist, [facility]. He will evaluate the patient for further management. Blood pressure: Elevated - Will be monitored by hospitalist. Disposition: Hospitalization Differential: Cardiac Ischemia (STEMI, NSTEMI, Unstable Angina, etc), Aortic Dissection, Arrhythmia, Pulmonary Embolism, Pneumonia, Pneumothorax, MSK, Infectious, Pericarditis/Myocarditis, Esophageal Rupture, Gastrointestinal, amongst other pathologies entertained. Medical Decision Makin r old male with history of cabg, htn, tia, afib arrives with substernal chest pain as well as what he describes as heart burn. States these are different pains. States he has palpitations with hiccups earlier. Initial exam benign. EKG OK and similar to previous v paced. No further symptoms after slntg, gi cocktail and aspirin. Labs eventually returned and normal other than quite elevated INR. Without bleeding will hold on emergent reversal of coumadin. With these findings and history will bring in for cardiac rule out. Hospitalist down to evaluate further. Impression: Substernal chest pain Palpitations Supratherapeutic INR Alan Duran MD The scribe's documentation has been prepared under my direction and personally reviewed by me in its entirety. I confirm that the note above accurately reflects all work, treatment, procedures, and medical decision making performed by me. Impression & Plan Substernal chest pain, Palpitations, Supratherapeutic INR Past Med/Surg History Family History (Updated 03/27/19 @ 03:28 by Abiodun Esparza) Other No significant family history Social History Preferred Language: Yoruba Feels Safe at Home: Yes Smoking Status: Former smoker Results & Data Vital Signs Vital Signs - 24 hr 03/27/19 03:08 03/27/19 03:19 03/27/19 03:30 Temperature 36.4 C L Temperature Source Oral Pulse Rate 93 H 82 76 Pulse Rate from SpO2 Sensor 79 77 Respiratory Rate 18 22 18 Respiratory Effort / Characteristics Non-Labored Spontaneous Respiratory Depth Normal Respiratory Pattern Regular Blood Pressure 159/77 H 156/79 H 149/72 H Blood Pressure Mean 104 106 88 Blood Pressure Position Sitting Pulse Oximetry 98 95 97 Oxygen Delivery Method Room Air Sepsis Recent Fever Within 48 Hours No Sepsis Action Taken by Nursing No Action Required 03/27/19 03:44 03/27/19 03:50 03/27/19 04:00 Temperature Temperature Source Pulse Rate 79 69 62 Pulse Rate from SpO2 Sensor 76 67 62 Respiratory Rate 20 17 21 Respiratory Effort / Characteristics Respiratory Depth Respiratory Pattern Blood Pressure 117/71 132/58 L 123/74 Blood Pressure Mean 96 87 100 Blood Pressure Position Pulse Oximetry 93 93 96 Oxygen Delivery Method Sepsis Recent Fever Within 48 Hours Sepsis Action Taken by Nursing 03/27/19 04:01 03/27/19 04:30 03/27/19 04:31 Temperature Temperature Source Pulse Rate 62 63 67 Pulse Rate from SpO2 Sensor 61 61 64 Respiratory Rate 20 17 20 Respiratory Effort / Characteristics Respiratory Depth Respiratory Pattern Blood Pressure 125/75 Blood Pressure Mean 102 Blood Pressure Position Pulse Oximetry 96 94 93 Oxygen Delivery Method Room Air Sepsis Recent Fever Within 48 Hours Sepsis Action Taken by Nursing 03/27/19 05:00 03/27/19 05:01 Temperature Temperature Source Pulse Rate 71 71 Pulse Rate from SpO2 Sensor 63 68 Respiratory Rate 22 18 Respiratory Effort / Characteristics Respiratory Depth Respiratory Pattern Blood Pressure 128/64 Blood Pressure Mean 94 Blood Pressure Position Pulse Oximetry 96 96 Oxygen Delivery Method Room Air Sepsis Recent Fever Within 48 Hours Sepsis Action Taken by [facility] Medications Current Medication List: was personally reviewed by me Laboratory Data Attestation: I reviewed the patient's lab results. Result diagrams: 03/27/19 03:23 03/27/19 03:23 Lab Results 02/12/20 02/12/20 02/12/20 Range/Units 03:23 03:23 03:23 WBC 7.47 (4.8-10.8) K/uL RBC 2.91 L (4.7-6.1) M/uL Hgb 10.4 L (14.0-18.0) g/dL Hct 27.8 L (42-52) % MCV 95.5 (80-100) fL MCH 35.7 H (25-34) pg MCHC 37.4 H (32-36) g/dL RDW Std Deviation 42.7 (36.4-46.3) fL RDW Coeff of Ashu 12.2 (11.5-14.5) % Plt Count 333 (130-400) K/uL MPV 8.6 (7.4-10.4) fL Immature Gran % (Auto) 1.6 % Neut % (Auto) 71.3 % Lymph % (Auto) 15.5 % [place] % (Auto) 10.2 % Eos % (Auto) 1.3 % Baso % (Auto) 0.1 % Immature Gran # (Auto) 0.12 H (0.00-0.02) K/uL Neut # (Auto) 5.32 (1.4-6.5) K/uL Lymph # (Auto) 1.16 L (1.2-3.4) K/uL [place] # (Auto) 0.76 H (0.11-0.59) K/uL Eos # (Auto) 0.10 (0-0.5) K/uL Baso # (Auto) 0.01 (0-0.2) K/uL PT 82.1 H (9.0-12.0) Seconds INR 9.4 H* (0.9-1.1) APTT 52.1 H* (21.0-31.0) Seconds PTT Ratio 1.9 Sodium 131 L (136-145) mmol/L Potassium 3.9 (3.5-5.1) mmol/L Chloride 98 (98-107) mmol/L Carbon Dioxide 26 (21-32) mmol/L Anion Gap 7.0 (3-11) BUN 18 (7-18) mg/dl Creatinine 1.15 (0.6-1.4) mg/dl Est Cr Clr Drug Dosing 43.7 ml/min Est GFR ( Amer) 65.5 Est GFR (Non-Af Amer) 56.5 BUN/Creatinine Ratio 15.4 (10-20) Glucose 211 H (70-99) mg/dl Calcium 9.1 (8.5-10.1) mg/dl Magnesium 2.0 (1.8-2.4) mg/dl Total Bilirubin 0.4 (0.2-1) mg/dl Direct Bilirubin 0.1 (0-0.2) mg/dl AST 14 L (15-37) U/L ALT 20 (12-78) U/L Alkaline Phosphatase 80 (45-117) U/L Troponin I < 0.015 (0-0.045) ng/ml Total Protein 7.6 (6.4-8.2) gm/dl Albumin 2.6 L (3.4-5.0) gm/dl Administered Medications Discontinued Medications Al Hydrox/Mg Hydrox/Simethicone () 1 dose PO ONE ONE Stop: 03/27/19 03:25 Last Admin: 03/27/19 03:33 Dose: 1 dose Documented by: [id number] Aspirin (Aspirin Chew) 324 mg PO NOW STA Stop: 03/27/19 03:25 Last Admin: 03/27/19 03:32 Dose: 324 mg Documented by: [id number] Nitroglycerin (Nitrostat) 0.4 mg SL NOW STA Stop: 03/27/19 03:25 Last Admin: 03/27/19 03:33 Dose: 0.4 mg Documented by: [id number] Discharge Plan Visit Data Chief Complaint: Chest Pain Stated Complaint: CHEST PAIN,COUGH X 2WK ED Provider: Alan Duran Discharge Problem: Substernal chest pain, Palpitations, Supratherapeutic INR Patient Disposition: Being Evaluated by Hospitalist Forms Stand Alone Forms: My [facility] Prescriptions Prescriptions: No Action furosemide 40 mg tablet 80 mg PO DAILY RF: 0 finasteride 5 mg tablet 5 mg PO DAILY RF: 0 multivitamin Tablet 1 tab PO Q OTHER DAY RF: 0 metoprolol succinate 100 mg tablet extended release 24 hr 100 mg PO QAM RF: 0 warfarin 2.5 mg tablet 5 mg PO [id number] RF: 0 warfarin 2.5 mg tablet 2.5 mg PO [id number] RF: 0 levothyroxine 50 mcg tablet 50 mcg PO QAM RF: 0 lisinopril 40 mg tablet 20 mg PO QAM RF: 0 terazosin 10 mg capsule 10 mg PO HS RF: 0 isosorbide mononitrate 30 mg tablet extended release 24 hr 30 mg PO DAILY RF: 0 spironolactone 25 mg tablet 12.5 mg PO DAILY RF: 0 doxycycline hyclate 100 mg capsule 100 mg PO BID RF: 0 aspirin 81 mg Tablet,Delayed Release (Dr/Ec) 81 mg PO Q OTHER DAY RF: 0 benzonatate 100 mg capsule 100 mg PO TID PRN (Reason: Cough) RF: 0 simvastatin 5 mg tablet 5 mg PO HS RF: 0 Referrals Referrals: Ty Mosqueda, DO [Primary Care Provider] - The scribe's documentation has been prepared under my direction and personally reviewed by me in its entirety. I confirm that the note above accurately reflects all work, treatment, procedures, and medical decision making performed by me.
[2019-03-27 04:44] LABS: INR 9.4 (0.9-1.1); Partial Thromboplastin Time 52.1 Seconds (21.0-31.0)
[2019-03-27] MEDS ORDERED: ONDANSETRON INJ 2 MG/ML 2 ML VIAL IV PRN (06:01)
[2019-03-27] MEDS ORDERED: ACETAMINOPHEN 325 MG TAB PO PRN (06:01)
[2019-03-27] MEDS ORDERED: NITROGLYCERIN SL 0.4 MG/TAB TAB SL PRN (06:01)
[2019-03-27] MEDS ORDERED: BENZONATATE 100 MG CAPSULE PO PRN (06:01)
--- NOTE | 2019-03-27 07:04 | XRay Report ---
SINGLE VIEW CHEST CLINICAL HISTORY: Atypical chest pain. FINDINGS: An AP, portable, upright chest radiograph is compared to study dated 06/17/2018. The examinat ion is degraded by portable technique, apical lordotic positioning, and patient rotation. The patient is status post midline sternotomy. A single lead cardiac pacemaker is unchanged in position and part ially obscures the left mid chest. The heart is enlarged noting atherosclerotic calcification of the thoracic aorta. There is pulmonary vascular congestion. There is bibasilar atelectasis. No airspace c onsolidation, large pleural effusion, or pneumothorax is seen. The skeletal structures are osteopenic . The bony thorax is grossly intact. Advanced degenerative change is seen in the left shoulder. Super ior subluxation of the humeral head suggests chronic rotator cuff tear. IMPRESSION: Cardiomegaly and cardiac pacemaker with evidence of congestive failure. ACT 112: Negative or not required by law. Electronically signed by: Jefry Wright M.D. 03/27/2019 7:02 AM
--- NOTE | 2019-03-27 08:29 | History and Physical Report ---
DATE OF ADMISSION: 03/27/2019 CHIEF COMPLAINT: Chest pain. HISTORY OF PRESENT ILLNESS: This is an 88-year-old male with past medical history significant for CAD, status post CABG; AFib on Coumadin, status post pacemaker, chronic diastolic CHF, BPH, hypertension, hypothyroidism, diabetes, not on medications; hyperlipidemia, history of bladder cancer, lives at home, ambulates okay, comes with chest pain. The patient had cough going on for last 2 weeks, treated with couple of different kind of antibiotics. Currently, seems to be started on doxycycline on 03/25/2019, to continue for 10 days, and was started on Tessalon Perles, last night and today night he got chest pains on and off,associated with severe cough,. Today he suddenly he had hiccups, heartburn and chest pain and severe cough, which prompted him to come to the ER. In the ER, the initial workup is unremarkable. He was given aspirin, nitro and GI cocktail. He says the pain even came after the nitro, it did not last long, it comes and goes. Denies any radiation of pain. No history of dizziness, no nausea, no vomiting, no sweating. The cough brings phlegm, but the phlegm is not coming out he just swallows it.But denies any fever or chills. He is chronically short of breath on exertion, but he can walk okay on the level field, but climbing steps or uphill he gets short of breath. Not sleeping well. Appetite is not great over last 2 days. No diarrhea, no constipation. He says he saw black stools couple of times. No hematuria or burning micturition. His left ankle is swollen for some time. No rash seen. No blurred visions. No earache. He has some runny nose, some sore throat, no dysphagia. Currently resting comfortably and hemodynamically stable. ALLERGIES: STATINS, HMG-COA REDUCTASE INHIBITOR. PAST MEDICAL HISTORY: As mentioned above. PAST SURGICAL HISTORY: CABG, cystoscopy multiple times, single chamber pacemaker insertion in 2004, Mohs first stage surgery on face and hands and feet, cyst removed from bladder tumor in 2013, cataract surgery, tonsillectomy, adenoidectomy, repair of nasal stenosis. MEDICATIONS: Currently, the patient is on doxycycline 100 mg p.o. b.i.d. for 14 days, started on 03/25/2019, Tessalon Perles 100 mg p.o. t.i.d. p.r.n., lisinopril 20 mg p.o. daily, spironolactone 12.5 mg p.o. daily, terazosin 10 mg p.o. at bedtime, simvastatin 5 mg p.o. at bedtime, Imdur 30 mg p.o. daily, Lasix 80 mg p.o. daily, Toprol-XL 100 mg p.o. daily, nitroglycerin 0.4 mg sublingual p.r.n., Coumadin 5 mg on Mondays, Wednesdays and Fridays and 2.5 mg on all other days or as directed, Tylenol 1000 mg p.o. b.i.d., levothyroxine 50 mcg p.o. daily, Proscar 5 mg p.o. daily, cyanocobalamin 1000 mcg p.o. daily, aspirin 81 mg p.o. daily, nasal spray in each nostril every hour p.r.n., vitamin D 400 units p.o. daily, multivitamins 1 tablet every other day. FAMILY HISTORY: Significant for father had [place]. Brother has lumbar spinal stenosis. SOCIAL HISTORY: , lives with . Quit smoking in 1959, smoked quarter pack a day for 8 years. Alcohol, 1 drink a day. No drug use. REVIEW OF SYMPTOMS: As per HPI. Rest of review of symptoms negative. PHYSICAL EXAMINATION: GENERAL: The patient is old and frail, not in acute distress. VITAL SIGNS: Temperature 36.4, pulse 67, respiratory rate 20, blood pressure 125/75, oxygen 93% on room air. HEENT: No pallor, no icterus. Pupils equal, round, reactive to light. NECK: No JVD, no neck mass, no carotid bruits. CARDIOVASCULAR: S1, S2 heard, regular rate and rhythm, no murmur, no gallop. RESPIRATORY SYSTEM: Normal AP diameter. No accessory muscle use. No wheezing, no crackles. ABDOMEN: Soft, bowel sounds present, nontender. No distention. CENTRAL NERVOUS SYSTEM: Cranial nerves II-XII grossly nonfocal. EXTREMITIES: Mild pedal edema, no erythema seen. LABORATORY DATA: WBC 7.4, hemoglobin 10.4, hematocrit 27.8, platelets 333. PT 82.1, INR 9.4, APTT 52.1. Sodium 131, potassium 3.9, chloride 98, bicarbonate 26, BUN 18, creatinine 1.1, serum glucose 211, calcium 9.1, magnesium 2, total bilirubin 0.4, direct bilirubin 0.1, AST 14, ALT 20, alkaline phosphatase 80, troponin I less than 0.015. IMAGING: Chest x-ray, no acute findings seen. EKG: Ventricular paced rhythm with rate of 85. ASSESSMENT AND PLAN: This is an 88-year-old male who presents with chest pain 1. Chest pain. The patient is having chest pain on and off since last night. He says it is more when he is coughing mainly with coughing spell. He has history of coronary artery disease, status post CABG and status post pacemaker. Initial workup is negative. We will observe in tele floor. Serial cardiac enzymes, echocardiogram. We will keep him n.p.o. and consult Cardiology for further recommendations. Repeat EKG. 2. Ongoing cough. No wheezing on exam. Chest x-ray unremarkable. He is currently on p.o. doxycycline and Tessalon Perles, which we will continue and monitor. 3. Elevated INR. He is on Coumadin for AFib. INR is 9.4, but no obvious signs of bleeding though as per patient he had couple episodes of black stools. Hemoglobin is 10.4, baseline should be around 11-12. We will monitor his H and H. We will check stool for Hemoccult. If any concern consult GI. We will hold Coumadin. 4. History of atrial fibrillation, rate controlled with Toprol-XL. Holding Coumadin. 5. Coronary artery disease, status post coronary artery bypass graft, on aspirin, statin, Imdur, Toprol-XL. Currently stable. 6. History of chronic diastolic congestive heart failure. Continue home medications of lisinopril, Aldactone, Lasix, Imdur, Toprol-XL. We will monitor for any volume overload. 8. History of benign prostatic hypertrophy. Continue Proscar. 9. History of hypothyroidism. Continue Synthroid. 10. History of diabetes, not on any medication. Follow hemoglobin A1c levels, currently n.p.o. 11. Deep venous thrombosis prophylaxis. INR is supratherapeutic. DISPOSITION: Observe in tele floor. Expect to discharge home and follow with family doctor. PT and OT prior to discharge. Social Service to help with discharge planning. Level 1 full code. MTDD
[2019-03-27] MEDS ORDERED: FUROSEMIDE 80 MG TAB PO SCH (09:00)
[2019-03-27] MEDS: SPIRONOLACTONE 25 MG TAB PO SCH (10:42)
[2019-03-27] MEDS: FINASTERIDE 5 MG TAB PO SCH (10:44)
[2019-03-27] MEDS: MULTIVITAMIN TAB PO SCH (10:44)
[2019-03-27] MEDS: ISOSORBIDE MONO EXTENDED REL 30 MG TABCR PO SCH (10:45)
[2019-03-27] MEDS: lisinopriL 20 MG TAB PO SCH (10:45)
[2019-03-27] MEDS: LEVOTHYROXINE SODIUM 50 MCG TABLET PO SCH (10:45)
--- NOTE | 2019-03-27 11:14 | Cardiology Consultation ---
Date of Consultation March 27, 2019 Assessment & Plan (1) Substernal chest pain: I do not think his symptoms are suggestive of angina. He has a recent cough, perhaps related to congestive heart failure or respiratory tract infection, with resultant chest wall pain, uneasiness in his chest. (2) Acute on chronic diastolic (congestive) heart failure: Chest x-ray consistent with mild interstitial edema. Is difficult to determine if the recent cough is due to a respiratory tract infection or due to his congestive heart failure, but there has been an issue with his volume status as of recently. Recommend transitioning him from furosemide 80 mg p.o. daily to IV furosemide, 20 mg now, and 40 mg tomorrow Continue spironolactone. (3) Palpitations: Stable ventricular paced rhythm noted. (4) Atrial fibrillation: Has chronic underlying atrial fibrillation. (5) Supratherapeutic INR: INR 9.4 without overt evidence of bleeding in setting of antibiotic treatment. We will hold Coumadin. History of Present Illness Attending Physician: Bryon Sims MD History of Present Illness Garry Wood is an 88 year old male seen in cardiology consultation per the request of Dr Polanco for the evaluation of chest pain. The patient's primary human resource professional is Dr Gonzalez. The patient's most recent outpatient cardiology appointment have been with Gabriele Carter PA-C of our practice on 03/11/2019. At that time he was seen in close follow-up due to recent findings of symptomatic hypotension and decompensated diastolic heart failure. The patient was seen and examined in room 229-1 with his spouse of 65 years accompanying him at the bedside. He noted feeling well at the time of my assessment with the exception of a headache, perhaps related to the fact that he has been n.p.o. and has missed breakfast. He denies any symptoms suggestive of angina. He notes that since his recent cardiology follow-up visit he had 2 weeks of nonproductive cough and felt like his whole body "ache". He believes the cough is trending toward improvement, but he did demonstrate this cough when he attempted to take a deep breath while I was auscultating his chest. Problem List: 1.Ischemic cardiac disease status post coronary bypass grafting x2 in 1990. 2.Class II angina pectoris. 3.Chronic atrial fibrillation. 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 6.Hypertension. 7.Hyperlipidemia with poor tolerance to statin therapy, currently tolerating simvastatin 5 mg 8.Transient TIA with hospitalization May 2017. 9.Type II diabetes mellitus 10.BPH 11.High grade Ta bladder cancer status post ressected in 10/2013. Allergies Allergy/AdvReac Type Severity Reaction Status Date / Time Ultvzmx-Qdh-Oza Reductase Allergy Unknown Leg Verified 03/27/19 04:31 Inhibitor weakness and pain Home Medications Home Medications Medication Instructions Recorded Confirmed Type finasteride 5 mg PO DAILY 06/17/18 03/27/19 History furosemide 80 mg PO DAILY 06/17/18 03/27/19 History levothyroxine 50 mcg PO QAM 06/17/18 03/27/19 History lisinopril 20 mg PO QAM 06/17/18 03/27/19 History metoprolol succinate 100 mg PO QAM 06/17/18 03/27/19 History multivitamin 1 tab PO Q OTHER DAY 06/17/18 03/27/19 History terazosin 10 mg PO HS 06/17/18 03/27/19 History warfarin 2.5 mg PO 4XWK 06/17/18 03/27/19 History warfarin 5 mg PO 3XWK 06/17/18 03/27/19 History aspirin 81 mg PO Q OTHER DAY 03/27/19 03/27/19 History benzonatate 100 mg PO TID PRN 03/27/19 03/27/19 History doxycycline hyclate 100 mg PO BID 03/27/19 03/27/19 History isosorbide mononitrate 30 mg PO DAILY 03/27/19 03/27/19 History simvastatin 5 mg PO HS 03/27/19 03/27/19 History spironolactone 12.5 mg PO DAILY 03/27/19 03/27/19 History Patient History Family History (Updated 03/27/19 @ 03:28 by Abiodun Esparza) Other No significant family history Social History Preferred Language: Mongolian Beliefs That Will Affect Care: None Current Living Situation: Spouse Other Information That Helps Us Care for You: No Feels Safe at Home: Yes Safety Concerns: Feels Safe At This Time Smoking Status: Former smoker Hx Substance Use: No Review of Systems Review of Systems: All systems reviewed & are unremarkable except as noted in HPI & below Physical Exam Physical Exam: Temp Pulse Resp BP Pulse Ox 37 C 70 18 148/74 H 96 03/27/19 11:22 03/27/19 11:22 03/27/19 11:22 03/27/19 11:22 03/27/19 11:22 Constitutional: WD/WN, vitals as above Respiratory: normal respiratory effort, lungs clear to auscultation Cardiovascular: RRR, no murmur, no edema Vessels: no JVD Skin: no rashes, warm and dry Neurologic: PERRL, EOMI, accommodation nl, no face palsy, no dysarthria Results & Data ([facility]) Vital Signs (Past 12 Hours) Vital Signs Temp Pulse Pulse Resp BP BP Pulse Ox 03/27/19 07:49 36.6 C 74 18 163/81 H 95 03/27/19 05:40 36.6 C 81 18 166/91 H 95 03/27/19 05:22 73 18 96 03/27/19 05:01 71 18 96 03/27/19 05:00 71 22 128/64 96 03/27/19 04:31 67 20 93 03/27/19 04:30 63 17 125/75 94 03/27/19 04:01 62 20 96 03/27/19 04:00 62 21 123/74 96 03/27/19 03:50 69 17 132/58 L 93 03/27/19 03:44 79 20 117/71 93 03/27/19 03:30 76 18 149/72 H 97 03/27/19 03:19 82 22 156/79 H 95 03/27/19 03:08 36.4 C L 93 H 18 159/77 H 98 Laboratory Results Cardiac Enzymes 03/27/19 03/27/19 Range/Units 03:23 07:09 AST 14 L (15-37) U/L Troponin I < 0.015 0.019 (0-0.045) ng/ml Coagulation 03/27/19 Range/Units 03:23 PT 82.1 H (9.0-12.0) Seconds APTT 52.1 H* (21.0-31.0) Seconds CBC 03/27/19 Range/Units 03:23 WBC 7.47 (4.8-10.8) K/uL RBC 2.91 L (4.7-6.1) M/uL Hgb 10.4 L (14.0-18.0) g/dL Hct 27.8 L (42-52) % Plt Count 333 (130-400) K/uL Neut # (Auto) 5.32 (1.4-6.5) K/uL Lymph # (Auto) 1.16 L (1.2-3.4) K/uL [place] # (Auto) 0.76 H (0.11-0.59) K/uL Eos # (Auto) 0.10 (0-0.5) K/uL Baso # (Auto) 0.01 (0-0.2) K/uL Comprehensive Metabolic Panel 03/27/19 Range/Units 03:23 Sodium 131 L (136-145) mmol/L Potassium 3.9 (3.5-5.1) mmol/L Chloride 98 (98-107) mmol/L Carbon Dioxide 26 (21-32) mmol/L BUN 18 (7-18) mg/dl Creatinine 1.15 (0.6-1.4) mg/dl Glucose 211 H (70-99) mg/dl Calcium 9.1 (8.5-10.1) mg/dl Direct Bilirubin 0.1 (0-0.2) mg/dl AST 14 L (15-37) U/L ALT 20 (12-78) U/L Alkaline Phosphatase 80 (45-117) U/L Total Protein 7.6 (6.4-8.2) gm/dl Albumin 2.6 L (3.4-5.0) gm/dl Intake and Output 03/26/19 03/27/19 03/27/19 22:59 06:59 14:59 Other: Weight 76.1 kg Diagnostic Findings INR level this morning at 323 was 9.4. Chest x-ray with changes consistent with interstitial edema. EKG performed 03/27/2019 revealed ventricular paced rhythm, underlying rhythm is felt to likely be atrial fibrillation based on his past history. Telemetry reveals ventricular paced rhythm in the range of 60 to 80 bpm. Echocardiogram reveals mild concentric left ventricular hypertrophy. There is mild flattening of the interventricular septum suggestive of right ventricular pressure/volume overload. The septal wall motion is abnormal and consistent with right ventricular pacemaker activation. Left ventricular ejection fraction is normal with LVEF 55-60%. The right ventricle is noted to be moderately dilated with normal right ventricular systolic function. Severe left atrial enlargement is noted. Mild tricuspid regurgitation is present. Moderate to severe pulmonary hypertension is present with estimated pulmonary artery systolic pressure 65 mmHg. Compared to the prior echocardiogram performed in May 2017 the right ventricular chamber dilatation and septal flattening are present on the prior study, the estimated pulmonary artery pressure at that time however was 35 mmHg as compared to 65 on the current study.
--- NOTE | 2019-03-27 11:47 | Electrocardiogram Report ---
Test Reason : Blood Pressure : / mmHG Vent. Rate : 085 BPM Atrial Rate : 082 BPM P-R Int : 000 ms QRS Dur : 190 ms QT Int : 446 ms P-R-T Axes : 000 -57 114 degrees QTc Int : 530 ms Ventricular-paced rhythm Probable underlying atrial fibrillation Abnormal ECG When compared with ECG of 17-JUN-2018 16:03, Vent. rate has increased BY 19 BPM Confirmed by Jag Choudhury ([id number]) on 03/27/2019 11:47:25 AM Referred By: REFERRED SELF Confirmed By:Jag Choudhury
[2019-03-27] MEDS ORDERED: FUROSEMIDE 20 MG in SYRINGE 0 ML IV ONE (12:11)
[2019-03-27] MEDS: METOPROLOL SUCC 50MG EXT REL TAB PO SCH (12:37)
[2019-03-27] MEDS: DOXYCYCLINE HYCLATE 100 MG CAP PO SCH ×2 (12:37→20:24)
[2019-03-27] MEDS: ASPIRIN 81 MG ECTAB PO SCH (12:37)
[2019-03-27 13:05] LABS: Hematocrit (blood only) 27.2 % (42-52)
[2019-03-27 15:23] LABS: Prothrombin Time 74.7 Seconds (9.0-12.0)
[2019-03-27 15:26] LABS: INR 8.5 (0.9-1.1)
--- NOTE | 2019-03-27 17:00 | Hospitalist Progress Note ---
Date of Service March 27, 2019 Assessment & Plan (1) Chest pain: This is an 88-year-old male who presents with chest pain 1. Chest pain. The patient presented with chest pain on and off for past 24 hrs Possibly secondary to acute on chronic CHF Pt says it is more when he is coughing mainly with coughing spell. Pt has history of coronary artery disease, status post CABG and status post pacemaker. Initial workup is negative. We will observe in tele floor. Serial cardiac enzymes, echocardiogram. Initial troponin negative, then mildly elevated. We will keep him n.p.o. and consult Cardiology for further recommendations. Repeat EKG. History of chronic diastolic congestive heart failure. Continue home medications of lisinopril, Aldactone, Lasix, Imdur, Toprol-XL. Cardiology recommends to switch diuretics to IV - will cont. to closely monitor I/Os, and weight History of chronic diastolic congestive heart failure. Continue home medications of lisinopril, Aldactone, Lasix, Imdur, Toprol-XL. 2. Ongoing cough. No wheezing on exam. Chest x-ray unremarkable. He was treated with Abx as outpt, on p.o. doxycycline and Tessalon Perles, which we will continue and monitor. 3. Elevated INR. He is on Coumadin for AFib. INR is 9.4 on admission, trending down. - no obvious signs of bleeding though as per patient he had couple episodes of black stools. Hemoglobin is 10.4, baseline should be around 11-12. We will monitor his H and H. We will check stool for Hemoccult. If any concern consult GI. We will hold Coumadin. 4. History of atrial fibrillation, rate controlled with Toprol-XL. Holding Coumadin. 5. Coronary artery disease, status post coronary artery bypass graft, on aspirin, statin, Imdur, Toprol-XL. Currently stable. History of benign prostatic hypertrophy. Continue Proscar. History of hypothyroidism. Continue Synthroid. History of diabetes, not on any medication. Follow hemoglobin A1c levels, currently n.p.o. Deep venous thrombosis prophylaxis. INR is supratherapeutic. Admission and Anticipated Discharge Date Admission Date: March 27, 2019 Subjective Patient sitting up in bed, in no acute distress, denies any fevers, chills, chest pain, shortness of breath, abdominal pain, nausea or vomiting. Only complains of heartburn. Review of Systems Review of Systems: All systems reviewed & are unremarkable except as noted in HPI & below Constitutional: no fever and no chills Respiratory: no cough and no dyspnea Cardiovascular: no chest pain, no dyspnea on exertion and no palpitations Gastrointestinal: + heartburn; no abdominal pain, no nausea and no vomiting Physical Exam Physical Exam: GENERAL: elderly male sitting up in chair, in no acute distress. HEENT: NC/AT, No pallor, no icterus. EOMI, PERRL NECK: No JVD, no neck mass, no carotid bruits. CARDIOVASCULAR: S1, S2 heard, regular rate and rhythm, no murmur, no gallop. RESPIRATORY SYSTEM: Normal AP diameter. No accessory muscle use. No wheezing, no crackles. ABDOMEN: Soft, bowel sounds present, nontender. No distention. CENTRAL NERVOUS SYSTEM: alert and oriented x3, Cranial nerves II-XII grossly nonfocal, moves extremities spontaneously EXTREMITIES: Mild pedal edema, no erythema seen. Results & Data ([facility]) Vital Signs (Past 12 Hours) Vital Signs Temp Pulse Pulse Resp BP BP BP 03/27/19 15:28 36.7 C 72 18 107/66 03/27/19 11:22 37 C 70 18 148/74 H 03/27/19 07:49 36.6 C 74 18 163/81 H 03/27/19 05:40 36.6 C 81 18 166/91 H 03/27/19 05:22 73 18 03/27/19 05:01 71 18 03/27/19 05:00 71 22 128/64 Pulse Ox 03/27/19 15:28 95 03/27/19 11:22 96 03/27/19 07:49 95 03/27/19 05:40 95 03/27/19 05:22 96 03/27/19 05:01 96 03/27/19 05:00 96 Laboratory Results 03/27/19 03/27/19 03/27/19 Range/Units 14:53 12:50 12:50 WBC (4.8-10.8) K/uL RBC (4.7-6.1) M/uL Hgb 10.0 L (14.0-18.0) g/dL Hct 27.2 L (42-52) % MCV (80-100) fL MCH (25-34) pg MCHC (32-36) g/dL RDW Std Deviation (36.4-46.3) fL RDW Coeff of Ashu (11.5-14.5) % Plt Count (130-400) K/uL MPV (7.4-10.4) fL Immature Gran % (Auto) % Neut % (Auto) % Lymph % (Auto) % [place] % (Auto) % Eos % (Auto) % Baso % (Auto) % Immature Gran # (Auto) (0.00-0.02) K/uL Neut # (Auto) (1.4-6.5) K/uL Lymph # (Auto) (1.2-3.4) K/uL [place] # (Auto) (0.11-0.59) K/uL Eos # (Auto) (0-0.5) K/uL Baso # (Auto) (0-0.2) K/uL PT 74.7 H (9.0-12.0) Seconds INR 8.5 H* (0.9-1.1) APTT (21.0-31.0) Seconds PTT Ratio Sodium (136-145) mmol/L Potassium (3.5-5.1) mmol/L Chloride (98-107) mmol/L Carbon Dioxide (21-32) mmol/L Anion Gap (3-11) BUN (7-18) mg/dl Creatinine (0.6-1.4) mg/dl Est Cr Clr Drug Dosing ml/min Est GFR ( Amer) Est GFR (Non-Af Amer) BUN/Creatinine Ratio (10-20) Glucose (70-99) mg/dl Calcium (8.5-10.1) mg/dl Magnesium (1.8-2.4) mg/dl Total Bilirubin (0.2-1) mg/dl Direct Bilirubin (0-0.2) mg/dl AST (15-37) U/L ALT (12-78) U/L Alkaline Phosphatase (45-117) U/L Troponin I 0.023 (0-0.045) ng/ml Total Protein (6.4-8.2) gm/dl Albumin (3.4-5.0) gm/dl 02/12/20 02/12/20 02/12/20 Range/Units 07:09 03:23 03:23 WBC 7.47 (4.8-10.8) K/uL RBC 2.91 L (4.7-6.1) M/uL Hgb 10.4 L (14.0-18.0) g/dL Hct 27.8 L (42-52) % MCV 95.5 (80-100) fL MCH 35.7 H (25-34) pg MCHC 37.4 H (32-36) g/dL RDW Std Deviation 42.7 (36.4-46.3) fL RDW Coeff of Ashu 12.2 (11.5-14.5) % Plt Count 333 (130-400) K/uL MPV 8.6 (7.4-10.4) fL Immature Gran % (Auto) 1.6 % Neut % (Auto) 71.3 % Lymph % (Auto) 15.5 % [place] % (Auto) 10.2 % Eos % (Auto) 1.3 % Baso % (Auto) 0.1 % Immature Gran # (Auto) 0.12 H (0.00-0.02) K/uL Neut # (Auto) 5.32 (1.4-6.5) K/uL Lymph # (Auto) 1.16 L (1.2-3.4) K/uL [place] # (Auto) 0.76 H (0.11-0.59) K/uL Eos # (Auto) 0.10 (0-0.5) K/uL Baso # (Auto) 0.01 (0-0.2) K/uL PT (9.0-12.0) Seconds INR (0.9-1.1) APTT (21.0-31.0) Seconds PTT Ratio Sodium 131 L (136-145) mmol/L Potassium 3.9 (3.5-5.1) mmol/L Chloride 98 (98-107) mmol/L Carbon Dioxide 26 (21-32) mmol/L Anion Gap 7.0 (3-11) BUN 18 (7-18) mg/dl Creatinine 1.15 (0.6-1.4) mg/dl Est Cr Clr Drug Dosing 43.7 ml/min Est GFR ( Amer) 65.5 Est GFR (Non-Af Amer) 56.5 BUN/Creatinine Ratio 15.4 (10-20) Glucose 211 H (70-99) mg/dl Calcium 9.1 (8.5-10.1) mg/dl Magnesium 2.0 (1.8-2.4) mg/dl Total Bilirubin 0.4 (0.2-1) mg/dl Direct Bilirubin 0.1 (0-0.2) mg/dl AST 14 L (15-37) U/L ALT 20 (12-78) U/L Alkaline Phosphatase 80 (45-117) U/L Troponin I 0.019 < 0.015 (0-0.045) ng/ml Total Protein 7.6 (6.4-8.2) gm/dl Albumin 2.6 L (3.4-5.0) gm/dl 03/27/19 Range/Units 03:23 WBC (4.8-10.8) K/uL RBC (4.7-6.1) M/uL Hgb (14.0-18.0) g/dL Hct (42-52) % MCV (80-100) fL MCH (25-34) pg MCHC (32-36) g/dL RDW Std Deviation (36.4-46.3) fL RDW Coeff of Ashu (11.5-14.5) % Plt Count (130-400) K/uL MPV (7.4-10.4) fL Immature Gran % (Auto) % Neut % (Auto) % Lymph % (Auto) % [place] % (Auto) % Eos % (Auto) % Baso % (Auto) % Immature Gran # (Auto) (0.00-0.02) K/uL Neut # (Auto) (1.4-6.5) K/uL Lymph # (Auto) (1.2-3.4) K/uL [place] # (Auto) (0.11-0.59) K/uL Eos # (Auto) (0-0.5) K/uL Baso # (Auto) (0-0.2) K/uL PT 82.1 H (9.0-12.0) Seconds INR 9.4 H* (0.9-1.1) APTT 52.1 H* (21.0-31.0) Seconds PTT Ratio 1.9 Sodium (136-145) mmol/L Potassium (3.5-5.1) mmol/L Chloride (98-107) mmol/L Carbon Dioxide (21-32) mmol/L Anion Gap (3-11) BUN (7-18) mg/dl Creatinine (0.6-1.4) mg/dl Est Cr Clr Drug Dosing ml/min Est GFR ( Amer) Est GFR (Non-Af Amer) BUN/Creatinine Ratio (10-20) Glucose (70-99) mg/dl Calcium (8.5-10.1) mg/dl Magnesium (1.8-2.4) mg/dl Total Bilirubin (0.2-1) mg/dl Direct Bilirubin (0-0.2) mg/dl AST (15-37) U/L ALT (12-78) U/L Alkaline Phosphatase (45-117) U/L Troponin I (0-0.045) ng/ml Total Protein (6.4-8.2) gm/dl Albumin (3.4-5.0) gm/dl Medications Administered Current Inpatient Medications Acetaminophen (Tylenol) 650 mg PO Q4H PRN PRN Reason: Pain or Fever Stop: 04/26/19 06:00 Aspirin (Ecotrin Ectab) 81 mg PO Q2D [facility] Stop: 04/26/19 08:59 Last Admin: 03/27/19 12:37 Dose: Not Given Documented by: Benzonatate (Tessalon Perle) 100 mg PO TID PRN PRN Reason: Cough Stop: 04/26/19 06:00 Doxycycline Hyclate (Vibramycin) 100 mg PO BID [facility] Stop: 04/03/19 08:59 Last Admin: 03/27/19 12:37 Dose: 100 mg Documented by: Finasteride (Proscar) 5 mg PO DAILY [facility] Stop: 04/26/19 08:59 Last Admin: 03/27/19 10:44 Dose: 5 mg Documented by: Furosemide 40 mg/ Syringe 4 mls @ 4 mls/min IV DAILY [facility] Stop: 04/27/19 08:59 Isosorbide Mononitrate (Imdur Extended Rel) 30 mg PO DAILY [facility] Stop: 04/26/19 08:59 Last Admin: 03/27/19 10:45 Dose: 30 mg Documented by: Levothyroxine Sodium (Synthroid) 50 mcg PO DAILYBB [facility] Stop: 04/26/19 06:29 Last Admin: 03/27/19 10:45 Dose: 50 mcg Documented by: Lisinopril (Zestril) 20 mg PO QAM [facility] Stop: 04/26/19 08:59 Last Admin: 03/27/19 10:45 Dose: 20 mg Documented by: Metoprolol Succinate (Toprol Xl) 100 mg PO QAM [facility] Stop: 04/26/19 08:59 Last Admin: 03/27/19 12:37 Dose: 100 mg Documented by: Multivitamins (Multivitamin Tab) 1 tab PO Q2D [facility] Stop: 04/26/19 08:59 Last Admin: 03/27/19 10:44 Dose: 1 tab Documented by: Nitroglycerin (Nitrostat) 0.4 mg SL UD PRN PRN Reason: Chest Pain Stop: 04/26/19 06:00 Ondansetron HCl (Zofran) 4 mg IV Q6H PRN PRN Reason: Nausea Stop: 04/26/19 06:00 Simvastatin (Zocor) 5 mg PO [facility] Stop: 04/26/19 20:59 Spironolactone (Aldactone) 12.5 mg PO DAILY [facility] Stop: 04/26/19 08:59 Last Admin: 03/27/19 10:42 Dose: 12.5 mg Documented by: Terazosin HCl (Hytrin) 10 mg PO [facility] Stop: 04/26/19 20:59
[2019-03-27] MEDS: FAMOTIDINE 20 MG TAB PO SCH (20:23)
[2019-03-27] MEDS: TERAZOSIN HCL 5 MG CAP PO SCH (20:24)
[2019-03-27] MEDS: SIMVASTATIN 5 MG TAB PO SCH (20:24)
[2019-03-28] MEDS: LEVOTHYROXINE SODIUM 50 MCG TABLET PO SCH (04:58)
[2019-03-28 06:08] LABS: Basophils # (auto) 0.01 K/uL (0-0.2); Basophils % (auto) 0.1 %; Eosinophils # (auto) 0.13 K/uL (0-0.5); Eosinophils % (auto) 1.9 %; Hematocrit (blood only) 29.4 % (42-52); Hemoglobin 10.4 g/dL (14.0-18.0); Immature Granulocytes # (auto) 0.07 K/uL (0.00-0.02); Lymphocytes # (auto) 1.22 K/uL (1.2-3.4); Lymphocytes % (auto) 18.2 %; Mean Corpuscular Hemoglobin 34.6 pg (25-34); Mean Corpuscular Hgb Conc 35.4 g/dL (32-36); Mean Corpuscular Volume 97.7 fL (80-100); Mean Platelet Volume 9.1 fL (7.4-10.4); Monocytes % (auto) 10.4 %; Neutrophils # (auto) 4.59 K/uL (1.4-6.5); Neutrophils % (auto) 68.4 %; Platelet Count 327 K/uL (130-400); RDW Coefficient of Variation 12.3 % (11.5-14.5); RDW Standard Deviation 43.9 fL (36.4-46.3); Red Blood Count 3.01 M/uL (4.7-6.1); White Blood Count 6.72 K/uL (4.8-10.8)
[2019-03-28 06:32] LABS: Prothrombin Time 62.6 Seconds (9.0-12.0)
[2019-03-28 06:39] LABS: BUN Creatinine Ratio 15.1 (10-20); Calcium 9.5 mg/dl (8.5-10.1); Creatinine Clr Calc Pharmacy 45.2 ml/min; Est GFR (African American) 75.7; Est GFR (Non-African American) 65.3; Magnesium 2.1 mg/dl (1.8-2.4); Potassium 3.9 mmol/L (3.5-5.1)
[2019-03-28 07:17] LABS: Estimated Average Glucose 232 mg/dl; Hemoglobin A1C 9.7 % (4.5-5.6)
[2019-03-28] MEDS: METOPROLOL SUCC 50MG EXT REL TAB PO SCH (08:08)
[2019-03-28] MEDS: ISOSORBIDE MONO EXTENDED REL 30 MG TABCR PO SCH (08:08)
[2019-03-28] MEDS: FAMOTIDINE 20 MG TAB PO SCH (08:08)
[2019-03-28] MEDS: FUROSEMIDE 40 MG in SYRINGE 0 ML IV SCH (08:08)
[2019-03-28] MEDS: lisinopriL 20 MG TAB PO SCH (08:08)
[2019-03-28] MEDS: FINASTERIDE 5 MG TAB PO SCH (08:09)
[2019-03-28] MEDS: SPIRONOLACTONE 25 MG TAB PO SCH (08:10)
[2019-03-28] MEDS: DOXYCYCLINE HYCLATE 100 MG CAP PO SCH ×2 (09:25→20:34)
[2019-03-28] MEDS ORDERED: GLUCOSE 40% GEL 15 GM TUBE PO PRN (10:53)
[2019-03-28] MEDS ORDERED: GLUCOSE 10 TABS/TUBE PO PRN (10:53)
[2019-03-28] MEDS ORDERED: GLUCAGON FOR INJ 1 MG VIAL SQ PRN (10:53)
[2019-03-28] MEDS ORDERED: DEXTROSE 50% 50 ML SYRINGE IV PRN (10:53)
[2019-03-28] MEDS ORDERED: CARBOHYDRATES FOR HYPOGLYCEMIA PO PRN (10:53)
[2019-03-28] MEDS ORDERED: PHYTONADIONE 5 MG TAB PO STA (10:56)
--- NOTE | 2019-03-28 11:03 | Cardiology Progress Note ---
Date of Service March 28, 2019 Assessment & Plan (1) Acute on chronic diastolic (congestive) heart failure: Continue IV furosemide. Cough improved this am. (2) Supratherapeutic INR: INR still elevated at 7. Proceed with vitamin K 2.5 mg now. Continue to hold coumadin. Subjective Patient feeling improved. Cough improved. Telemetry reveals underlying atrial fibrillation with demand ventricular pacing, a 4 beat run of wide-complex tachycardia was noted this morning at 8:34 AM that terminated spontaneously and may be ventricular or perhaps fusion beats with frequent ventricular pacing noted. Review of Systems Review of Systems: All systems reviewed & are unremarkable except as noted in HPI & below Physical Exam Physical Exam: Temp Pulse Resp BP Pulse Ox 36.7 C 60 16 153/81 H 94 03/28/19 08:01 03/28/19 08:01 03/28/19 08:01 03/28/19 08:01 03/28/19 08:01 Constitutional: WD/WN, vitals as above Respiratory: normal respiratory effort, lungs clear to auscultation Cardiovascular: RRR, no murmur, no edema Vessels: no JVD Gastrointestinal (Abdomen): normal bowel sounds, soft, nontender, no hepatosplenomegaly Neurologic: PERRL, EOMI, accommodation nl, no face palsy, no dysarthria Results & Data Vital Signs (Past 12 Hours) Vital Signs Temp Pulse Resp BP Pulse Ox 03/28/19 08:01 36.7 C 60 16 153/81 H 94 03/28/19 02:59 36.8 C 68 18 148/76 H 93 Laboratory Results Cardiac Enzymes 03/27/19 03/27/19 Range/Units 12:50 19:27 Troponin I 0.023 < 0.015 (0-0.045) ng/ml Coagulation 03/27/19 03/28/19 Range/Units 14:53 05:20 PT 74.7 H 62.6 H (9.0-12.0) Seconds CBC 03/27/19 03/28/19 Range/Units 12:50 05:20 WBC 6.72 (4.8-10.8) K/uL RBC 3.01 L (4.7-6.1) M/uL Hgb 10.0 L 10.4 L (14.0-18.0) g/dL Hct 27.2 L 29.4 L (42-52) % Plt Count 327 (130-400) K/uL Neut # (Auto) 4.59 (1.4-6.5) K/uL Lymph # (Auto) 1.22 (1.2-3.4) K/uL [place] # (Auto) 0.70 H (0.11-0.59) K/uL Eos # (Auto) 0.13 (0-0.5) K/uL Baso # (Auto) 0.01 (0-0.2) K/uL Comprehensive Metabolic Panel 03/28/19 Range/Units 05:20 Sodium 132 L (136-145) mmol/L Potassium 3.9 (3.5-5.1) mmol/L Chloride 98 (98-107) mmol/L Carbon Dioxide 25 (21-32) mmol/L BUN 15 (7-18) mg/dl Creatinine 1.02 (0.6-1.4) mg/dl Glucose 172 H (70-99) mg/dl Calcium 9.5 (8.5-10.1) mg/dl Intake and Output 03/27/19 03/28/19 03/28/19 22:59 06:59 14:59 Intake Total 440 / 740 200 / 740 Output Total 150 / 400 250 / 400 Balance 290 / 340 -50 / 340 Intake: Oral 440 / 740 200 / 740 Output: Urine 150 / 400 250 / 400 Other: Weight 76.9 kg 76.3 kg
--- NOTE | 2019-03-28 11:15 | Hospitalist Progress Note ---
Date of Service March 28, 2019 Assessment & Plan (1) Chest pain: This is an 88-year-old male who presents with chest pain 1. Chest pain. The patient presented with chest pain on and off for past 24 hrs Possibly secondary to acute on chronic CHF Pt says it is worse when he is coughing mainly with coughing spell. Pt has history of coronary artery disease, status post CABG and status postpacemaker. Initial workup is negative. We will observe in tele floor. Serial cardiac enzymes, echocardiogram. Initial troponin negative, then mildly elevated at 0.023 Cardiology consulted for further recommendations. Repeat EKG. History of chronic diastolic congestive heart failure. Continue home medications of lisinopril, Aldactone, Imdur, Toprol-XL. Cardiology recommends to continue with IV diuresis - will cont. to closely monitor I/Os, and weight Clinically much improved, denies any chest pain, cough improved 2. Subacute bronchitis. Hx of bronchitis. Ongoing cough. No wheezing on exam. Chest x-ray unremarkable. He was treated with Abx as outpt, on p.o. doxycycline and Tessalon Perles, we will continue and monitor. Cough improved. 3. Elevated INR. He is on Coumadin for AFib. INR 9.4 on admission, trending down. Currently 7 - no obvious signs of bleeding though as per patient he had couple episodes of black stools. Hemoglobin is 10.4, baseline should be around 11-12. We will monitor his H/ H. We will check stool for Hemoccult. No BM yet. If any concern consult GI. We will hold Coumadin. 2.5 vit K PO given. 4. History of atrial fibrillation - rate controlled with Toprol-XL. Holding Coumadin Telemetry - underlying Afib with demand ventricular pacing, a 4 beat run of wide-complex tachycardia was noted this morning (03/28),terminated spontaneously Coronary artery disease, status post coronary artery bypass graft, on aspirin, statin, Imdur, Toprol-XL. Currently stable. History of benign prostatic hypertrophy. Continue Proscar. History of hypothyroidism. Continue Synthroid. History of diabetes, not on any medication. Follow hemoglobin A1c levels, currently n.p.o. Deep venous thrombosis prophylaxis. INR is supratherapeutic. Admission and Anticipated Discharge Date Admission Date: March 27, 2019 Subjective Patient sitting up in bed, in no acute distress. He is inquiring about going home. Denies any fevers, chills, chest pain, shortness of breath, abdominal pain nausea or vomiting. Says that his cough is better. INR down to 7 pt had wide-complex tachycardia this AM, nonsustained Review of Systems Review of Systems: All systems reviewed & are unremarkable except as noted in HPI & below Constitutional: no fever and no chills Respiratory: + cough (improved) Cardiovascular: no chest pain, no palpitations and no edema Gastrointestinal: no abdominal pain, no nausea and no vomiting Physical Exam Physical Exam: GENERAL: elderly male sitting up in chair, in no acute distress. HEENT: NC/AT, No pallor, no icterus. EOMI, PERRL NECK: No JVD, no neck mass, no carotid bruits. CARDIOVASCULAR: S1, S2 heard, regular rate and rhythm, no murmur, no gallop. RESPIRATORY SYSTEM: Normal AP diameter. No accessory muscle use. No wheezing, no crackles. ABDOMEN: Soft, bowel sounds present, nontender. No distention. CENTRAL NERVOUS SYSTEM: alert and oriented x3, Cranial nerves II-XII grossly nonfocal, moves extremities spontaneously EXTREMITIES: Mild pedal edema, no erythema seen. Results & Data ([facility]) Vital Signs (Past 12 Hours) Vital Signs Temp Pulse Resp BP Pulse Ox 03/28/19 11:09 36.8 C 81 16 156/92 H 95 03/28/19 08:01 36.7 C 60 16 153/81 H 94 03/28/19 02:59 36.8 C 68 18 148/76 H 93 Laboratory Results 03/28/19 03/28/19 03/28/19 Range/Units 05:20 05:20 05:20 WBC 6.72 (4.8-10.8) K/uL RBC 3.01 L (4.7-6.1) M/uL Hgb 10.4 L (14.0-18.0) g/dL Hct 29.4 L (42-52) % MCV 97.7 (80-100) fL MCH 34.6 H (25-34) pg MCHC 35.4 (32-36) g/dL RDW Std Deviation 43.9 (36.4-46.3) fL RDW Coeff of Ashu 12.3 (11.5-14.5) % Plt Count 327 (130-400) K/uL MPV 9.1 (7.4-10.4) fL Immature Gran % (Auto) 1.0 % Neut % (Auto) 68.4 % Lymph % (Auto) 18.2 % [place] % (Auto) 10.4 % Eos % (Auto) 1.9 % Baso % (Auto) 0.1 % Immature Gran # (Auto) 0.07 H (0.00-0.02) K/uL Neut # (Auto) 4.59 (1.4-6.5) K/uL Lymph # (Auto) 1.22 (1.2-3.4) K/uL [place] # (Auto) 0.70 H (0.11-0.59) K/uL Eos # (Auto) 0.13 (0-0.5) K/uL Baso # (Auto) 0.01 (0-0.2) K/uL PT (9.0-12.0) Seconds INR (0.9-1.1) Sodium 132 L (136-145) mmol/L Potassium 3.9 (3.5-5.1) mmol/L Chloride 98 (98-107) mmol/L Carbon Dioxide 25 (21-32) mmol/L Anion Gap 9.0 (3-11) BUN 15 (7-18) mg/dl Creatinine 1.02 (0.6-1.4) mg/dl Est Cr Clr Drug Dosing 45.2 ml/min Est GFR ( Amer) 75.7 Est GFR (Non-Af Amer) 65.3 BUN/Creatinine Ratio 15.1 (10-20) Glucose 172 H (70-99) mg/dl Estimat Average Glucose 232 mg/dl Hemoglobin A1c 9.7 H (4.5-5.6) % Calcium 9.5 (8.5-10.1) mg/dl Magnesium 2.1 (1.8-2.4) mg/dl Troponin I (0-0.045) ng/ml 03/28/19 03/27/19 03/27/19 Range/Units 05:20 19:27 14:53 WBC (4.8-10.8) K/uL RBC (4.7-6.1) M/uL Hgb (14.0-18.0) g/dL Hct (42-52) % MCV (80-100) fL MCH (25-34) pg MCHC (32-36) g/dL RDW Std Deviation (36.4-46.3) fL RDW Coeff of Ashu (11.5-14.5) % Plt Count (130-400) K/uL MPV (7.4-10.4) fL Immature Gran % (Auto) % Neut % (Auto) % Lymph % (Auto) % [place] % (Auto) % Eos % (Auto) % Baso % (Auto) % Immature Gran # (Auto) (0.00-0.02) K/uL Neut # (Auto) (1.4-6.5) K/uL Lymph # (Auto) (1.2-3.4) K/uL [place] # (Auto) (0.11-0.59) K/uL Eos # (Auto) (0-0.5) K/uL Baso # (Auto) (0-0.2) K/uL PT 62.6 H 74.7 H (9.0-12.0) Seconds INR 7.0 H* 8.5 H* (0.9-1.1) Sodium (136-145) mmol/L Potassium (3.5-5.1) mmol/L Chloride (98-107) mmol/L Carbon Dioxide (21-32) mmol/L Anion Gap (3-11) BUN (7-18) mg/dl Creatinine (0.6-1.4) mg/dl Est Cr Clr Drug Dosing ml/min Est GFR ( Amer) Est GFR (Non-Af Amer) BUN/Creatinine Ratio (10-20) Glucose (70-99) mg/dl Estimat Average Glucose mg/dl Hemoglobin A1c (4.5-5.6) % Calcium (8.5-10.1) mg/dl Magnesium (1.8-2.4) mg/dl Troponin I < 0.015 (0-0.045) ng/ml 03/27/19 03/27/19 Range/Units 12:50 12:50 WBC (4.8-10.8) K/uL RBC (4.7-6.1) M/uL Hgb 10.0 L (14.0-18.0) g/dL Hct 27.2 L (42-52) % MCV (80-100) fL MCH (25-34) pg MCHC (32-36) g/dL RDW Std Deviation (36.4-46.3) fL RDW Coeff of Ashu (11.5-14.5) % Plt Count (130-400) K/uL MPV (7.4-10.4) fL Immature Gran % (Auto) % Neut % (Auto) % Lymph % (Auto) % [place] % (Auto) % Eos % (Auto) % Baso % (Auto) % Immature Gran # (Auto) (0.00-0.02) K/uL Neut # (Auto) (1.4-6.5) K/uL Lymph # (Auto) (1.2-3.4) K/uL [place] # (Auto) (0.11-0.59) K/uL Eos # (Auto) (0-0.5) K/uL Baso # (Auto) (0-0.2) K/uL PT (9.0-12.0) Seconds INR (0.9-1.1) Sodium (136-145) mmol/L Potassium (3.5-5.1) mmol/L Chloride (98-107) mmol/L Carbon Dioxide (21-32) mmol/L Anion Gap (3-11) BUN (7-18) mg/dl Creatinine (0.6-1.4) mg/dl Est Cr Clr Drug Dosing ml/min Est GFR ( Amer) Est GFR (Non-Af Amer) BUN/Creatinine Ratio (10-20) Glucose (70-99) mg/dl Estimat Average Glucose mg/dl Hemoglobin A1c (4.5-5.6) % Calcium (8.5-10.1) mg/dl Magnesium (1.8-2.4) mg/dl Troponin I 0.023 (0-0.045) ng/ml Medications Administered Current Inpatient Medications Acetaminophen (Tylenol) 650 mg PO Q4H PRN PRN Reason: Pain or Fever Stop: 04/26/19 06:00 Last Admin: 03/28/19 08:46 Dose: 650 mg Documented by: Aspirin (Ecotrin Ectab) 81 mg PO Q2D SHAKIRA Stop: 04/26/19 08:59 Last Admin: 03/27/19 12:37 Dose: Not Given Documented by: Benzonatate (Tessalon Perle) 100 mg PO TID PRN PRN Reason: Cough Stop: 04/26/19 06:00 Doxycycline Hyclate (Vibramycin) 100 mg PO BID [facility] Stop: 04/03/19 08:59 Last Admin: 03/28/19 09:25 Dose: 100 mg Documented by: Famotidine (Pepcid) 20 mg PO QAM [facility] Stop: 04/26/19 18:44 Last Admin: 03/28/19 08:08 Dose: 20 mg Documented by: Finasteride (Proscar) 5 mg PO DAILY [facility] Stop: 04/26/19 08:59 Last Admin: 03/28/19 08:09 Dose: 5 mg Documented by: Furosemide 40 mg/ Syringe 4 mls @ 4 mls/min IV DAILY [facility] Stop: 04/27/19 08:59 Last Admin: 03/28/19 08:08 Dose: 4 mls/min Documented by: Isosorbide Mononitrate (Imdur Extended Rel) 30 mg PO DAILY [facility] Stop: 04/26/19 08:59 Last Admin: 03/28/19 08:08 Dose: 30 mg Documented by: Levothyroxine Sodium (Synthroid) 50 mcg PO DAILYBB [facility] Stop: 04/26/19 06:29 Last Admin: 03/28/19 04:58 Dose: 50 mcg Documented by: Lisinopril (Zestril) 20 mg PO QAM [facility] Stop: 04/26/19 08:59 Last Admin: 03/28/19 08:08 Dose: 20 mg Documented by: Metoprolol Succinate (Toprol Xl) 100 mg PO QAM [facility] Stop: 04/26/19 08:59 Last Admin: 03/28/19 08:08 Dose: 100 mg Documented by: Multivitamins (Multivitamin Tab) 1 tab PO Q2D [facility] Stop: 04/26/19 08:59 Last Admin: 03/27/19 10:44 Dose: 1 tab Documented by: Nitroglycerin (Nitrostat) 0.4 mg SL UD PRN PRN Reason: Chest Pain Stop: 04/26/19 06:00 Ondansetron HCl (Zofran) 4 mg IV Q6H PRN PRN Reason: Nausea Stop: 04/26/19 06:00 Simvastatin (Zocor) 5 mg PO HS [facility] Stop: 04/26/19 20:59 Last Admin: 03/27/19 20:24 Dose: 5 mg Documented by: Spironolactone (Aldactone) 12.5 mg PO DAILY [facility] Stop: 04/26/19 08:59 Last Admin: 03/28/19 08:10 Dose: 12.5 mg Documented by: Terazosin HCl (Hytrin) 10 mg PO [facility] Stop: 04/26/19 20:59 Last Admin: 03/27/19 20:24 Dose: 10 mg Documented by:
[2019-03-28] MEDS: INSULIN ASPART 100 UNITS/ML 3 ML PEN SC SCH ×3 (12:16→20:34)
--- NOTE | 2019-03-28 14:23 | Electrocardiogram Report ---
Test Reason : Blood Pressure : / mmHG Vent. Rate : 066 BPM Atrial Rate : 000 BPM P-R Int : 000 ms QRS Dur : 112 ms QT Int : 408 ms P-R-T Axes : 000 005 246 degrees QTc Int : 427 ms Atrial fibrillation with frequent ventricular-paced complexes Abnormal ECG When compared with ECG of 27-MAR-2019 03:16, Vent. rate has decreased BY 19 BPM Confirmed by Jag Choudhury ([id number]) on 03/28/2019 2:23:07 PM Referred By: REFERRED SELF Confirmed By:Jag Choudhury
[2019-03-28] MEDS: SIMVASTATIN 5 MG TAB PO SCH (20:33)
[2019-03-28] MEDS: TERAZOSIN HCL 5 MG CAP PO SCH (20:34)
[2019-03-29] MEDS: LEVOTHYROXINE SODIUM 50 MCG TABLET PO SCH (05:41)
[2019-03-29 08:16] LABS: Hematocrit (blood only) 29.7 % (42-52); Hemoglobin 10.6 g/dL (14.0-18.0); Mean Corpuscular Hemoglobin 34.9 pg (25-34); Mean Corpuscular Hgb Conc 35.7 g/dL (32-36); Mean Corpuscular Volume 97.7 fL (80-100); Mean Platelet Volume 8.6 fL (7.4-10.4); Platelet Count 321 K/uL (130-400); RDW Coefficient of Variation 12.3 % (11.5-14.5); RDW Standard Deviation 44.3 fL (36.4-46.3); Red Blood Count 3.04 M/uL (4.7-6.1); White Blood Count 7.12 K/uL (4.8-10.8)
[2019-03-29 08:36] LABS: INR 1.8 (0.9-1.1)
[2019-03-29] MEDS: INSULIN ASPART 100 UNITS/ML 3 ML PEN SC SCH ×2 (08:38→11:58)
[2019-03-29] MEDS: FINASTERIDE 5 MG TAB PO SCH (08:39)
[2019-03-29] MEDS: SPIRONOLACTONE 25 MG TAB PO SCH (08:39)
[2019-03-29] MEDS: ISOSORBIDE MONO EXTENDED REL 30 MG TABCR PO SCH (08:39)
[2019-03-29] MEDS: MULTIVITAMIN TAB PO SCH (08:39)
[2019-03-29] MEDS: ASPIRIN 81 MG ECTAB PO SCH (08:39)
[2019-03-29] MEDS: lisinopriL 20 MG TAB PO SCH (08:39)
[2019-03-29 08:40] LABS: Calcium 9.7 mg/dl (8.5-10.1); Creatinine Clr Calc Pharmacy 48.6 ml/min; Est GFR (African American) 74.8; Est GFR (Non-African American) 64.6; Magnesium 2.1 mg/dl (1.8-2.4); Potassium 4.1 mmol/L (3.5-5.1)
[2019-03-29] MEDS: METOPROLOL SUCC 50MG EXT REL TAB PO SCH (08:40)
[2019-03-29] MEDS: FAMOTIDINE 20 MG TAB PO SCH (08:40)
[2019-03-29] MEDS: DOXYCYCLINE HYCLATE 100 MG CAP PO SCH (08:40)
[2019-03-29] MEDS: FUROSEMIDE 40 MG in SYRINGE 0 ML IV SCH (08:40)
--- NOTE | 2019-03-29 12:02 | Cardiology Progress Note ---
Date of Service March 29, 2019 Assessment & Plan (1) Acute on chronic diastolic (congestive) heart failure: (2) Supratherapeutic INR: EKG today 03/29/2019 reveals rate controlled atrial fibrillation, with diffuse inferior lateral T wave inversions. Although this could be ischemia, could also very well be related to a T wave memory phenomenon as he is typically right ventricular paced. He does not have any symptoms suggestive angina at present. Plan status is stable. INR down to 1.8 Patient is stable for discharge from cardiac perspective on his prior to hospital dose of furosemide 80 mg daily, and I have restarted his Coumadin. Subjective Chief complaint: Follow-up cough, shortness of breath Subjective: Patient feeling better. Cough still present, but much improved. INR trended toward improvement. Telemetry reveals underlying atrial fibrillation with demand ventricular pacing. Physical Exam Physical Exam: Temp Pulse Resp BP Pulse Ox 36.8 C 74 18 98/59 L 96 03/29/19 11:56 03/29/19 11:56 03/29/19 11:56 03/29/19 11:56 03/29/19 11:56 Constitutional: WD/WN, vitals as above Respiratory: normal respiratory effort, lungs clear to auscultation Cardiovascular: Rate/Rhythm: regular rate Heart Sounds: + murmur (1/6 systolic murmur) Vessels: no JVD Extremities: no edema Gastrointestinal (Abdomen): normal bowel sounds, soft, nontender, no hepatosplenomegaly Neurologic: PERRL, EOMI, accommodation nl, no face palsy, no dysarthria Results & Data Vital Signs (Past 12 Hours) Vital Signs Temp Pulse Resp BP BP Pulse Ox 03/29/19 11:56 36.8 C 74 18 98/59 L 96 03/29/19 07:41 36.8 C 76 18 124/63 96 03/29/19 03:50 36.5 C 77 16 128/69 94 Laboratory Results Coagulation 03/29/19 Range/Units 08:03 PT 18.0 H (9.0-12.0) Seconds CBC 03/29/19 Range/Units 08:03 WBC 7.12 (4.8-10.8) K/uL RBC 3.04 L (4.7-6.1) M/uL Hgb 10.6 L (14.0-18.0) g/dL Hct 29.7 L (42-52) % Plt Count 321 (130-400) K/uL Comprehensive Metabolic Panel 03/29/19 Range/Units 08:03 Sodium 131 L (136-145) mmol/L Potassium 4.1 (3.5-5.1) mmol/L Chloride 98 (98-107) mmol/L Carbon Dioxide 24 (21-32) mmol/L BUN 16 (7-18) mg/dl Creatinine 1.03 (0.6-1.4) mg/dl Calcium 9.7 (8.5-10.1) mg/dl Intake and Output 03/28/19 03/29/19 03/29/19 22:59 06:59 14:59 Intake Total 450 / 850 Output Total 525 / 925 Balance -75 / -75 Intake: Oral 450 / 850 Output: Urine 525 / 925 Other: Weight 77.5 kg
--- NOTE | 2019-03-29 12:43 | Discharge Summary ---
Date of Service March 29, 2019 Admission HPI Per Admitting Provider This is an 88-year-old male with past medical history significant for CAD, status post CABG; AFib on Coumadin, status post pacemaker, chronic diastolic CHF, BPH, hypertension, hypothyroidism, diabetes, not on medications; hyperlipidemia, history of bladder cancer, lives at home, ambulates okay, comes with chest pain. The patient had cough going on for last 2 weeks, treated with couple of different kind of antibiotics. Currently, seems to be started on doxycycline on 03/25/2019, to continue for 10 days, and was started on Tessalon Perles, last night and today night he got chest pains on and off,associated with severe cough,. Today he suddenly he had hiccups, heartburn and chest pain and severe cough, which prompted him to come to the ER. In the ER, the initial workup is unremarkable. He was given aspirin, nitro and GI cocktail. He says the pain even came after the nitro, it did not last long, it comes and goes. Denies any radiation of pain. No history of dizziness, no nausea, no vomiting, no sweating. The cough brings phlegm, but the phlegm is not coming out he just swallows it.But denies any fever or chills. He is chronically short of breath on exertion, but he can walk okay on the level field, but climbing steps or uphill he gets short of breath. Not sleeping well. Appetite is not great over last 2 days. No diarrhea, no constipation. He says he saw black stools couple of times. No hematuria or burning micturition. His left ankle is swollen for some time. No rash seen. No blurred visions. No earache. He has some runny nose, some sore throat, no dysphagia. Currently resting comfortably and hemodynamically stable. Admission Exam Per Admitting Provider GENERAL: The patient is old and frail, not in acute distress. VITAL SIGNS: Temperature 36.4, pulse 67, respiratory rate 20, blood pressure 125/75, oxygen 93% on room air. HEENT: No pallor, no icterus. Pupils equal, round, reactive to light. NECK: No JVD, no neck mass, no carotid bruits. CARDIOVASCULAR: S1, S2 heard, regular rate and rhythm, no murmur, no gallop. RESPIRATORY SYSTEM: Normal AP diameter. No accessory muscle use. No wheezing, no crackles. ABDOMEN: Soft, bowel sounds present, nontender. No distention. CENTRAL NERVOUS SYSTEM: Cranial nerves II-XII grossly nonfocal. EXTREMITIES: Mild pedal edema, no erythema seen. Principal Diagnosis Acute on chronic diastolic (congestive) heart failure Supratherapeutic INR Bronchitis Discharge Exam GENERAL: elderly male sitting up in chair, in no acute distress. HEENT: NC/AT, No pallor, no icterus. EOMI, PERRL NECK: No JVD, no neck mass, no carotid bruits. CARDIOVASCULAR: S1, S2 heard, regular rate and rhythm, no murmur, no gallop. RESPIRATORY SYSTEM: Normal AP diameter. No accessory muscle use. No wheezing, no crackles. ABDOMEN: Soft, bowel sounds present, nontender. No distention. CENTRAL NERVOUS SYSTEM: alert and oriented x3, Cranial nerves II-XII grossly nonfocal, moves extremities spontaneously EXTREMITIES: Mild pedal edema, no erythema seen. Discharge Data Allergies Allergy/AdvReac Type Severity Reaction Status Date / Time [id number] Reductase Allergy Unknown Leg Verified 03/27/19 04:31 Inhibitor weakness and pain Consultations 03/27/19 04:14 ED Decision to Admit Stat 03/27/19 06:01 Consult Case Management - Discharge Planning Routine 03/27/19 08:00 Consult Cardiology Routine Hospital Course (1) Chest pain: This is an 88-year-old male who presented to hospital with chest pain 1. Chest pain. The patient presented with chest pain on and off for past 24 hrs Possibly secondary to acute on chronic CHF Pt says it is worse when he is coughing mainly with coughing spell. Pt has history of coronary artery disease, status post CABG and status postpacemaker. Initial workup is negative. We will observe in tele floor. Serial cardiac enzymes, echocardiogram. Initial troponin negative, then mildly elevated at 0.023 Echo (03/27/2019) -mild concentric LVH, mild flattening of the interventricular septum suggestive of RV pressure/volume overload. EF 55 to 60%. RV is moderately dilated. RV systolic function is normal. LA is severely dilated. Mild AR, mild left ear, mild MR. Moderate TR. Moderate to severe pulmonary hypertension was present. Estimated pulmonary artery systolic pressure of 65 mmHg. compared to prior study, estimated pulmonary artery systolic pressure was in the range of 35 mmHg. Cardiology consulted for further recommendations. Repeat EKG. History of chronic diastolic congestive heart failure. Continue home medications of lisinopril, Aldactone, Imdur, Toprol-XL. Cardiology recommended IV diuresis while inpt Pt clinically much improved, denies any chest pain, cough improved. 2. Subacute bronchitis. Hx of bronchitis. Ongoing cough. No wheezing on exam. Chest x-ray unremarkable. He was treated with Abx as outpt, on p.o. doxycycline and Tessalon Perles, we will continue and monitor. Cough improved. 3. Elevated INR. He is on Coumadin for AFib. INR 9.4 on admission, trending down. Yesterday down to 7, 2.5 vit K PO given. Current INR down to 1.8, coumadin restarted Patient will need to follow-up with anticoagulation clinic, appointment scheduled for April 02. - no obvious signs of bleeding though as per patient he had couple episodes of black stools. Hemoglobin is stable ~10.4, baseline around 11-12. monitored his H/ H while inpt, stable Hemoccult checked - negative 4. History of atrial fibrillation - rate controlled with Toprol-XL. Holding Coumadin on admission d/t high INR, now restarted Telemetry - underlying Afib with demand ventricular pacing, a 4 beat run of wide-complex tachycardia was noed in the morning (03/28),terminated spontaneously Coronary artery disease, status post coronary artery bypass graft, on aspirin, statin, Imdur, Toprol-XL. Currently stable. History of benign prostatic hypertrophy. Continue Proscar. History of hypothyroidism. Continue Synthroid. History of diabetes (steroid induced?), not on any medication. BSG check, sliding scale insulin while inpt. Patient was supposed to be seen at diabetes clinic, this appointment was rescheduled as patient was hospitalized, he will need to follow-up with them on April 02. Deep venous thrombosis prophylaxis: on coumadin Total Time Total Time Spent Total Time Spent (In Minutes): 40 Total Time Includes: Examination of the Patient, Discharge Planning, Medication Reconciliation and Communication With Other Providers Discharge Plan Discharge Items Patient Disposition: Home - Self-Care Reason For Visit: CHEST PAIN Discharge Diagnosis: Acute on chronic diastolic (congestive) heart failure Supratherapeutic INR Bronchitis Activity: Resume your previous activity Activity Comment: as tolerated, pace yourself, ask for help as needed Non-emergency contact: Primary Care Provider Call non-emergency contact if: you have any medication questions Follow-up/Referrals: Ty Mosqueda, [Primary Care Provider] - Diet: Heart Healthy Addtl Attending Provider Instructions: You will need to follow-up with your primary care provider, in 1 week, this will be scheduled for you before you leave the hospital. Your prior appointments were rescheduled, make sure you follow-up on April 02, at 3:20 PM with a diabetes and coagulation clinic. This is important to monitor/manage your INR and Coumadin dose, and your blood sugar level. Please continue taking antibiotic (doxycycline) for next couple of days. Pending Studies at Discharge: No Stand-Alone Forms: My [facility] [employer], Smoking Cessation Medications and DC Order Prescriptions: New doxycycline hyclate 100 mg Capsule 100 mg PO BID 3 Days Qty: 6 RF: 0 Continued furosemide 40 mg tablet 80 mg PO DAILY RF: 0 finasteride 5 mg tablet 5 mg PO DAILY RF: 0 multivitamin Tablet 1 tab PO Q OTHER DAY RF: 0 metoprolol succinate 100 mg tablet extended release 24 hr 100 mg PO QAM RF: 0 warfarin 2.5 mg tablet 5 mg PO [id number] RF: 0 warfarin 2.5 mg tablet 2.5 mg PO [id number] RF: 0 levothyroxine 50 mcg tablet 50 mcg PO QAM RF: 0 lisinopril 40 mg tablet 20 mg PO QAM RF: 0 terazosin 10 mg capsule 10 mg PO HS RF: 0 isosorbide mononitrate 30 mg tablet extended release 24 hr 30 mg PO DAILY RF: 0 spironolactone 25 mg tablet 12.5 mg PO DAILY RF: 0 aspirin 81 mg Tablet,Delayed Release (Dr/Ec) 81 mg PO Q OTHER DAY RF: 0 benzonatate 100 mg capsule 100 mg PO TID PRN (Reason: Cough) RF: 0 simvastatin 5 mg tablet 5 mg PO HS RF: 0 Discontinued doxycycline hyclate 100 mg capsule 100 mg PO BID RF: 0 Discharge Orders: Discharge Order (Routine); Ordered 03/29/19 Ordered By: Bryon Zaragoza/Other Patient Handouts: Diabetes Blender Complications, Diabetes Healthy Meals, Understanding Carbohydrates, Diabetes Exercise Benefits, Diabetes Manage A1C Test Admission Data Admit Date/Time: 03/27/19 13:38 Attending Provider: Bryon Sims Admit Provider: Craig Polanco Primary Care Provider: Ty Mosqueda Other Providers: Craig Polanco ; Oswaldo Connolly ; Geremias Ovalle ; Aldo Gonzalez ; Grey Prather ; Karan Carrera ; Gabriele Carter ; Zaynab Miguel ; Sarita Bush ; Garcia Parsons
[2019-03-29] MEDS ORDERED: WARFARIN SOD 2.5 MG TAB PO SCH (16:00)
--- NOTE | 2019-03-30 07:41 | Electrocardiogram Report ---
Test Reason : Blood Pressure : / mmHG Vent. Rate : 083 BPM Atrial Rate : 000 BPM P-R Int : 000 ms QRS Dur : 080 ms QT Int : 374 ms P-R-T Axes : 000 029 239 degrees QTc Int : 439 ms Atrial fibrillation Abnormal ECG When compared with ECG of 28-MAR-2019 06:24, ventricular-paced complexes are no longer Present Confirmed by Jag Choudhury ([id number]) on 03/30/2019 7:41:03 AM Referred By: REFERRED SELF Confirmed By:Jag Choudhury
[2019-03-30] MEDS ORDERED: FUROSEMIDE 80 MG TAB PO SCH (09:00)
== END 2019-03-29 14:50 | disposition home or self-care (01) | DRG 292 ==
LOC: ED 03:04 → 2S 03:04

== ENCOUNTER 2019-06-12 10:52 | Observation (INO) ==
--- NOTE | 2019-06-12 11:18 | Emergency Department Note ---
Impression & Plan Gait instability, Bilateral leg weakness, Anemia ED Provider Note NAME: ZAMZAM DEL ANGEL AGE: 89 SEX: M : 1930 ARRIVES VIA: Walk-In INFORMANT: Patient, ED PROVIDER(S): Amandeep Zeng MD Chief Complaint: Leg weakness, difficulty walking HPI: Patient does present with the above complaints. The patient states at rest and with him seated he does not have any acute complaints. The patient states that this started yesterday after lunch. He did have 2 associated episodes of vomiting. Timing is been intermittent. Trying to walk makes it worse. Currently denies any headache, fevers, chills, chest pain. Patient does not present with cough, fevers, chills, coronavirus contacts, coronavirus testing, or recent travel. The patient does state whenever he is ambulatory he does have some issues with this. The patient does relate that he had a recent medication change of going up to 80 mg once daily 3 times a week. Patient denies any fluid retention. The patient denies any recent travel or change in elevation. No recent swimming or mountaineering. Patient denies any hearing loss or ringing the ears. The patient denies any feelings of vertigo at this time. The patient did attempt to try meclizine which did not improve his symptoms. ROS: See HPI for pertinent positives and negatives. A total of 10 systems were reviewed and otherwise negative. Past medical history: See below Surgical history: See below Social history: See below Physical Exam: GENERAL: Well appearing, well nourished, NAD, non-toxic. Wearing a mask EYE EXAM: Normal conjunctiva. PERRL, no anisocoria and EOM's grossly intact w/o pain. NECK: Supple, no nuchal rigidity, no adenopathy, non-tender. No signs of meningismus. No carotid bruits auscultated. LUNGS: Clear to auscultation. Normal chest wall mechanics. Chest: Device in left chest HEART: NSR, no MRG. ABDOMEN: Abdomen soft, non-tender, normo-active bowel sounds, no masses, no rebound or guarding. BACK: No CVA TTP. SKIN: No rashes and no bruising. UPPER EXTREMITIES: Upper extremities are grossly normal. LOWER EXTREMITIES: Grossly normal, no edema. NEURO EXAM: A&O x3, cranial nerves II-XII grossly intact, normal speech, moves all 4 extremities on command w/o issue. Tpalyj-sq-uett appropriate, mild intention tremor bilaterally, no drift. Negative Romberg. Short stepping gait. Differential diagnoses: Infection, dehydration, metabolic abnormality, hypo/hyperglycemia, electrolyte disturbance, anemia, hypoxia, cardiac sources, intracerebral event, toxicologic, neurologic, as well as other pathologies. Course: Patient was seen and evaluated the bedside. A full history and physical exam was performed. I did update the patient on his findings. Patient has no symptoms at rest. I did speak with Susi Barnes PA-C. Patient will be admitted under Dr. Rocha, [facility] Hospitalist. EKG: Indication: Abnormal gait The paced rhythm, rate of 68, normal QRS interval, normal axis, T wave inversion anteriorly and laterally. T wave inversions do appear new. [facility] EKG June 03, 2019. Imaging Studies: Radiology results as stated below per my review in the radiologist's interpretation: HEAD CT NONCONTRAST CT DOSE: 614.27 mGy.cm HISTORY: gait instability TECHNIQUE: Multiaxial CT images of the head were performed without the use of intravenous contrast. Automated exposure control was utilized for this study. A dose lowering technique was utilized adhering to the principles of ALARA. Comparison: Head CT 06/17/2018. Findings: The paranasal sinuses and mastoid air cells are clear. The calvarium and skull base are intact. There is no mass, hematoma, midline shift, acute infarct. White matter hypodensity is nonspecific but suggestive of microvascular ischemic change. The ventricles and sulci demonstrate mild age-related involutional changes. 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 Impression: No significant change compared to the prior study. No acute intracranial abnormality. ACT 112: Negative or not required by law. Electronically signed by: Dwight Lomeli M.D. 06/12/2019 11:55 AM Dictated: 06/12/19 1151 Transcribed: 06/12/19 1151 XR chest 1V portable HISTORY: 89 years-old Male weakness acute weakness COMPARISON: Chest radiograph 06/03/2019 TECHNIQUE: Portable AP view of the chest FINDINGS: Cardiac silhouette is enlarged, unchanged. Prior median sternotomy and CABG. Left subclavian single lead pacer. Mild pulmonary vascular congestion is noted with chronic interstitial coarsening of the lung bases. Eventration of the right hemidiaphragm. There is no pneumothorax, large pleural effusion or new airspace consolidation. Degenerative changes of the shoulders and spine. IMPRESSION: 1. Cardiomegaly with pulmonary vascular congestion. 2. 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 ACT 112: Negative or not required by law. The above report was generated using voice recognition software. It may contain grammatical, syntax or spelling errors. Electronically signed by: Willis Myers M.D. 06/12/2019 12:03 PM Dictated: 06/12/19 120 Transcribed: 06/12/19 120 Cardiac monitoring: An order was placed for continuous cardiac monitoring. The monitor shows a rate of 79 with sinus rhythm. MDM: Patient did present with concern for difficulty with ambulation. Patient did a bladder completed along with a CT chest x-ray and EKG. EKG does show some new T wave inversions. Otherwise be paced rhythm is unchanged. Patient CT shows ch ronic changes. Chest x-ray shows some cardiomegaly. Blood work shows normal white count. Chronic and stable anemia. INR is therapeutic. Patient's kidney function is unremarkable. Tracely elevated glucose. Electrolytes within normal limits. Urinalysis negative. The patient exam does not have any lower extremity weakness but does have a short based gait. Patient's pacemaker does limit the patient from getting an MRI. Given the concern for his ambulatory dysfunction and the fact that the patient does live at home what is the on-call hospitalist who agreed to further evaluate treat the patient. Patient was admitted to the medicine service. Past Med/Surg History Medical History Atrial fibrillation Bladder cancer (Resolved) Pacemaker TIA (transient ischemic attack) (Acute) Surgical History Hx of CABG (Chronic) Family History Other No significant family history Social History Preferred Language: French Communication Ability: Effective Beliefs That Will Affect Care: None Current Living Situation: Spouse Feels Safe at Home: Yes Smoking Status: Former smoker Hx Substance Use: No Allergies Allergies Allergy/AdvReac Type Severity Reaction Status Date / Time Dnpvtzk-Pop-Ksd Reductase Allergy Unknown Leg Verified 06/12/19 11:46 Inhibitor weakness and pain Home Meds Home Medications Medication Instructions Recorded Confirmed finasteride 5 mg PO DAILY 06/17/18 06/12/19 levothyroxine 50 mcg PO QAM 06/17/18 06/12/19 metoprolol succinate 100 mg PO QAM 06/17/18 06/12/19 multivitamin 1 tab PO Q OTHER DAY 06/17/18 06/12/19 terazosin 10 mg PO HS 06/17/18 06/12/19 warfarin 2.5 mg PO 5XWK 06/17/18 06/12/19 warfarin 5 mg PO 2XWK 06/17/18 06/12/19 aspirin 81 mg PO Q OTHER DAY 03/27/19 06/12/19 isosorbide mononitrate 30 mg PO DAILY 03/27/19 06/12/19 simvastatin 5 mg PO HS 03/27/19 06/12/19 furosemide 20 mg PO DAILY 06/03/19 06/12/19 lisinopril 10 mg PO DAILY 06/03/19 06/12/19 metformin 500 mg PO BID 06/12/19 06/12/19 Results & Data (ED) Vital Signs Vital Signs - 24 hr 06/12/19 10:55 06/12/19 11:29 06/12/19 13:27 Temperature 36.7 C Temperature Source Oral Pulse Rate 79 Pulse Rate [Apical] 66 Respiratory Rate 18 20 Blood Pressure 134/82 Blood Pressure [Right Arm] 113/67 Blood Pressure Mean 99 Blood Pressure Mean [Right Arm] 82 Blood Pressure Position Sitting Pulse Oximetry 95 95 97 Oxygen Delivery Method Room Air Room Air Room Air Sepsis Recent Fever Within 48 Hours No Sepsis Action Taken by Nursing No Action Required Home Medications Current Medication List: was personally reviewed by me Laboratory Data Attestation: I reviewed the patient's lab results. Result diagrams: 06/12/19 11:30 06/12/19 11:30 Lab Results 06/12/19 06/12/19 06/12/19 Range/Units 11:30 11:30 11:30 WBC 7.00 (4.8-10.8) K/uL RBC 3.38 L (4.7-6.1) M/uL Hgb 11.6 L (14.0-18.0) g/dL Hct 33.8 L (42-52) % MCV 100.0 (80-100) fL MCH 34.3 H (25-34) pg MCHC 34.3 (32-36) g/dL RDW Std Deviation 47.9 H (36.4-46.3) fL RDW Coeff of Ashu 13.2 (11.5-14.5) % Plt Count 231 (130-400) K/uL MPV 10.3 (7.4-10.4) fL Immature Gran % (Auto) 0.3 % Neut % (Auto) 69.1 % Lymph % (Auto) 19.3 % [place] % (Auto) 9.9 % Eos % (Auto) 1.3 % Baso % (Auto) 0.1 % Immature Gran # (Auto) 0.02 (0.00-0.02) K/uL Neut # (Auto) 4.84 (1.4-6.5) K/uL Lymph # (Auto) 1.35 (1.2-3.4) K/uL [place] # (Auto) 0.69 H (0.11-0.59) K/uL Eos # (Auto) 0.09 (0-0.5) K/uL Baso # (Auto) 0.01 (0-0.2) K/uL PT 20.7 H (9.0-12.0) Seconds INR 2.0 H (0.9-1.1) Sodium 138 (136-145) mmol/L Potassium 3.7 (3.5-5.1) mmol/L Chloride 103 (98-107) mmol/L Carbon Dioxide 26 (21-32) mmol/L Anion Gap 9.0 (3-11) BUN 20 H (7-18) mg/dl Creatinine 1.21 (0.6-1.4) mg/dl Est Cr Clr Drug Dosing Not Reportable Est GFR ( Amer) 61.1 Est GFR (Non-Af Amer) 52.8 BUN/Creatinine Ratio 16.2 (10-20) Glucose 151 H (70-99) mg/dl Calcium 9.0 (8.5-10.1) mg/dl Magnesium 2.1 (1.8-2.4) mg/dl Total Bilirubin 0.5 (0.2-1) mg/dl AST 18 (15-37) U/L ALT 21 (12-78) U/L Alkaline Phosphatase 67 (45-117) U/L Troponin I 0.025 (0-0.045) ng/ml Total Protein 7.6 (6.4-8.2) gm/dl Albumin 3.5 (3.4-5.0) gm/dl Globulin 4.1 H (2.5-4.0) gm/dl Albumin/Globulin Ratio 0.9 (0.9-2) TSH 3.570 (0.300-4.500) uIu/ml Urine Color Urine Appearance (Clear) Urine pH (4.5-7.5) Ur Specific [place] (1.000-1.030) Urine Protein (Negative) Urine Glucose (UA) (Negative) Urine Ketones (Negative) Urine Blood (Negative) Urine Nitrite (Negative) Urine Bilirubin (Negative) Urine Urobilinogen (Negative) Ur Leukocyte Esterase (Negative) 06/12/19 Range/Units 11:57 WBC (4.8-10.8) K/uL RBC (4.7-6.1) M/uL Hgb (14.0-18.0) g/dL Hct (42-52) % MCV (80-100) fL MCH (25-34) pg MCHC (32-36) g/dL RDW Std Deviation (36.4-46.3) fL RDW Coeff of Ashu (11.5-14.5) % Plt Count (130-400) K/uL MPV (7.4-10.4) fL Immature Gran % (Auto) % Neut % (Auto) % Lymph % (Auto) % [place] % (Auto) % Eos % (Auto) % Baso % (Auto) % Immature Gran # (Auto) (0.00-0.02) K/uL Neut # (Auto) (1.4-6.5) K/uL Lymph # (Auto) (1.2-3.4) K/uL [place] # (Auto) (0.11-0.59) K/uL Eos # (Auto) (0-0.5) K/uL Baso # (Auto) (0-0.2) K/uL PT (9.0-12.0) Seconds INR (0.9-1.1) Sodium (136-145) mmol/L Potassium (3.5-5.1) mmol/L Chloride (98-107) mmol/L Carbon Dioxide (21-32) mmol/L Anion Gap (3-11) BUN (7-18) mg/dl Creatinine (0.6-1.4) mg/dl Est Cr Clr Drug Dosing Est GFR ( Amer) Est GFR (Non-Af Amer) BUN/Creatinine Ratio (10-20) Glucose (70-99) mg/dl Calcium (8.5-10.1) mg/dl Magnesium (1.8-2.4) mg/dl Total Bilirubin (0.2-1) mg/dl AST (15-37) U/L ALT (12-78) U/L Alkaline Phosphatase (45-117) U/L Troponin I (0-0.045) ng/ml Total Protein (6.4-8.2) gm/dl Albumin (3.4-5.0) gm/dl Globulin (2.5-4.0) gm/dl Albumin/Globulin Ratio (0.9-2) TSH (0.300-4.500) uIu/ml Urine Color Yellow Urine Appearance Clear (Clear) Urine pH 6.0 (4.5-7.5) Ur Specific [place] 1.015 (1.000-1.030) Urine Protein Negative (Negative) Urine Glucose (UA) Negative (Negative) Urine Ketones Negative (Negative) Urine Blood Negative (Negative) Urine Nitrite Negative (Negative) Urine Bilirubin Negative (Negative) Urine Urobilinogen Negative (Negative) Ur Leukocyte Esterase Negative (Negative) Blood Pressure Blood Pressure Findings: Elevated blood pressure Blood Pressure Disposition: further management by hospitalist Discharge Plan Visit Data Chief Complaint: Leg Weakness, Bilateral Stated Complaint: LEGS ARE LIKE RUBBER ED Provider: Amandeep Zeng Discharge Problem: Gait instability, Bilateral leg weakness, Anemia Forms Stand Alone Forms: My [facility] Prescriptions Prescriptions: No Action lisinopril 10 mg tablet 10 mg PO DAILY RF: 0 furosemide 20 mg tablet 20 mg PO DAILY RF: 0 metformin 500 mg tablet 500 mg PO BID RF: 0 finasteride 5 mg tablet 5 mg PO DAILY RF: 0 multivitamin Tablet 1 tab PO Q OTHER DAY RF: 0 metoprolol succinate 100 mg tablet extended release 24 hr 100 mg PO QAM RF: 0 warfarin 2.5 mg tablet 5 mg PO 2XWK RF: 0 warfarin 2.5 mg tablet 2.5 mg PO 5XWK RF: 0 levothyroxine 50 mcg tablet 50 mcg PO QAM RF: 0 terazosin 10 mg capsule 10 mg PO HS RF: 0 isosorbide mononitrate 30 mg tablet extended release 24 hr 30 mg PO DAILY RF: 0 aspirin 81 mg Tablet,Delayed Release (Dr/Ec) 81 mg PO Q OTHER DAY RF: 0 simvastatin 5 mg tablet 5 mg PO HS RF: 0 Discharge Problem: Anemia Qualifiers: Anemia type: unspecified type Qualified Code(s): D64.9 - Anemia, unspecified
[2019-06-12 11:44] LABS: Basophils # (auto) 0.01 K/uL (0-0.2); Basophils % (auto) 0.1 %; Eosinophils # (auto) 0.09 K/uL (0-0.5); Eosinophils % (auto) 1.3 %; Hematocrit (blood only) 33.8 % (42-52); Hemoglobin 11.6 g/dL (14.0-18.0); Immature Granulocytes # (auto) 0.02 K/uL (0.00-0.02); Immature Granulocytes % (auto) 0.3 %; Lymphocytes # (auto) 1.35 K/uL (1.2-3.4); Lymphocytes % (auto) 19.3 %; Mean Corpuscular Hemoglobin 34.3 pg (25-34); Mean Corpuscular Hgb Conc 34.3 g/dL (32-36); Mean Platelet Volume 10.3 fL (7.4-10.4); Monocytes # (auto) 0.69 K/uL (0.11-0.59); Monocytes % (auto) 9.9 %; Neutrophils # (auto) 4.84 K/uL (1.4-6.5); Neutrophils % (auto) 69.1 %; Platelet Count 231 K/uL (130-400); RDW Coefficient of Variation 13.2 % (11.5-14.5); RDW Standard Deviation 47.9 fL (36.4-46.3); Red Blood Count 3.38 M/uL (4.7-6.1)
[2019-06-12 11:53] LABS: Prothrombin Time 20.7 Seconds (9.0-12.0)
--- NOTE | 2019-06-12 11:57 | CT Scan Report ---
HEAD CT NONCONTRAST CT DOSE: 614.27 mGy.cm HISTORY: gait instability TECHNIQUE: Multiaxial CT images of the head were performed without the use of intravenous contrast. A utomated exposure control was utilized for this study. A dose lowering technique was utilized adheri ng to the principles of ALARA. Comparison: Head CT 06/17/2018. Findings: The paranasal sinuses and mastoid air cells are clear. The calvarium and skull base are int act. There is no mass, hematoma, midline shift, acute infarct. White matter hypodensity is nonspecifi c but suggestive of microvascular ischemic change. The ventricles and sulci demonstrate mild age-rela han involutional changes. 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 Impression: No significant change compared to the prior study. No acute intracranial abnormality. ACT 112: Negative or not required by law. Electronically signed by: Dwight Lomeli M.D. 06/12/2019 11:55 AM
[2019-06-12 12:01] LABS: Alanine Aminotransferase 21 U/L (12-78); Albumin Level 3.5 gm/dl (3.4-5.0); Aspartate Aminotransferase 18 U/L (15-37); BUN Creatinine Ratio 16.2 (10-20); Blood Urea Nitrogen 20 mg/dl (7-18); Carbon Dioxide 26 mmol/L (21-32); Chloride 103 mmol/L (98-107); Est GFR (African American) 61.1; Est GFR (Non-African American) 52.8; Glucose 151 mg/dl (70-99); Magnesium 2.1 mg/dl (1.8-2.4); Potassium 3.7 mmol/L (3.5-5.1); Sodium 138 mmol/L (136-145)
--- NOTE | 2019-06-12 12:05 | XRay Report ---
XR chest 1V portable HISTORY: 89 years-old Male weakness acute weakness COMPARISON: Chest radiograph 06/03/2019 TECHNIQUE: Portable AP view of the chest FINDINGS: Cardiac silhouette is enlarged, unchanged. Prior median sternotomy and CABG. Left subclavian single l ead pacer. Mild pulmonary vascular congestion is noted with chronic interstitial coarsening of the carline ng bases. Eventration of the right hemidiaphragm. There is no pneumothorax, large pleural effusion or new airspace consolidation. Degenerative changes of the shoulders and spine. IMPRESSION: 1. Cardiomegaly with pulmonary vascular congestion. 2. 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 ACT 112: Negative or not required by law. The above report was generated using voice recognition software. It may contain grammatical, syntax o r spelling errors. Electronically signed by: Willis Myers M.D. 06/12/2019 12:03 PM
[2019-06-12 12:12] LABS: Appearance Urine Clear (Clear); Bilirubin Urine Negative (Negative); Blood Urine Negative (Negative); Color Urine Yellow; Glucose Urine UA Negative (Negative); Ketones Urine Negative (Negative); Leukocyte Esterase Urine Negative (Negative); Nitrite Urine Negative (Negative); Protein Urine Negative (Negative); Specific Gravity Urine 1.015 (1.000-1.030); Urobilinogen Urine Negative (Negative)
[2019-06-12 12:12] LABS: Albumin Globulin Ratio 0.9 (0.9-2); Alkaline Phosphatase 67 U/L (45-117); Bilirubin,Total 0.5 mg/dl (0.2-1); Globulin 4.1 gm/dl (2.5-4.0); Total Protein 7.6 gm/dl (6.4-8.2); Troponin I 0.025 ng/ml (0-0.045)
--- NOTE | 2019-06-12 13:57 | Electrocardiogram Report ---
Test Reason : Blood Pressure : / mmHG Vent. Rate : 068 BPM Atrial Rate : 070 BPM P-R Int : 000 ms QRS Dur : 092 ms QT Int : 420 ms P-R-T Axes : 000 -14 225 degrees QTc Int : 446 ms Ventricular-paced rhythm Abnormal ECG When compared with ECG of 03-JUN-2019 13:57, Vent. rate has increased BY 3 BPM Confirmed by Shaq Grant ([id number]) on 06/12/2019 1:56:53 PM Referred By: REFERRED SELF Confirmed By:Shaq Grant
--- NOTE | 2019-06-12 14:35 | History & Physical Report ---
Date of Service June 12, 2019 Assessment & Plan (1) Bilateral leg weakness: (2) Gait instability: Pt is 89 y/o M with PMH CAD s/p CABG x2 in 1990, angina pectoris, chronic CHF, atrial fibrillation on Coumadin, tachybradycardia syndrome s/p pacemaker, HTN, HLD, h/o TIA, DM II, BPH, bladder CA s/p resection 2013, hypothyroidism presented to ER with complaint of bilateral leg weakness since yesterday. Yesterday with episode of turning head and felt "things drifted to the left" followed by vomiting x 2 and noted bilateral leg weakness with standing. Denies GUERRA, vision changes, upper extremity weakness, paresthesias, extremity pain. In ER pt afebrile, BP: 134/82, 113, 67, P: 79, R: 18, 95% on RA. No leukocytosis, H/H: 11.6/33 (stable anemia with baseline hgb: 10-11), INR: 2.0, no significant electrolyte abnormality, TSH WNL. UA unremarkable. CXR without infiltrate CT Head: no acute findings DDX: orthostatic hypotension, vertigo, statin induced myopathy, TIA/stroke Symptoms do not seem like classic vertigo, no acute stroke noted on CT head and no focal findings on exam. No extremity pain so less likely myopathy. May be med side effect/orthostatic hypotension as has had recent med changes -Will check CPK -Check orthostatic vitals -Fall precautions -PT/OT eval -Monitor BP and volume status and daily weight -CBC, BMP in am (3) Atrial fibrillation: On Coumadin INR: 2.0 -Continue Coumadin, metoprolol -INR in a.m. (4) Chronic CHF: Chronic diastolic CHF Appears euvolemic at this time 03/2019 spironolactone d/c and furosemide was decreased from 80 mg a day to 40 mg daily secondary to orthostatic hypotension.05/06/2019 Lasix was increased to 60 mg/daily secondary to LE edema. Lasix 80 mg added 2-3 times a week alternating with 60 mg daily 05/20/2019. Pt has been alternating 80mg and 60mg every other day Outpatient weight of 79kg on 05/06/19 and 05/20/19 -Continue Lasix 60mg daily for now -Monitor I&O's, daily weight (5) TIA (transient ischemic attack): -continue aspirin (6) Coronary artery disease: Status post CABG in 1990 No chest pain, shortness of breath -Continue aspirin, metoprolol, isosorbide, statin (7) Tachy-eula syndrome: Status post pacemaker (8) HTN (hypertension): Recent lisinopril decreased to 10 mg daily the beginning of April 2019 Current BP controlled, had BP of 113/67 in ER -Monitor BP -Continue lisinopril, metoprolol (9) Diabetes mellitus, type II: A1c: 9.7 on 03/2019 -Hold metformin -NovoLog setting scale per protocol (10) BPH (benign prostatic hyperplasia): -Continue finasteride, terazosin -Monitor for further orthostatic hypotension (11) Hypothyroidism: TSH: 3.5 -Continue levothyroxine DVT Prophylaxis -On Coumadin, INR: 2.0 Full Code as per discussion with pt Follows with Dr Mosqueda for routine care Pt was seen and care coordinated with Dr Rocha. See addendum History of Present Illness Chief Complaint: Leg weakness Primary Care Provider: Ty Mosqueda, Pt is 89 y/o M with PMH CAD s/p CABG x2 in 1990, angina pectoris, chronic CHF, atrial fibrillation on Coumadin, tachybradycardia syndrome s/p pacemaker, HTN, HLD, h/o TIA, DM II, BPH, bladder CA s/p resection 2013, hypothyroidism presented to ER with complaint of leg weakness since yesterday. Patient states does not usually use walker or cane to ambulate. States yesterday after eating lunch turned his head and reports "things drifted to the left". States did not feel like dizziness or lightheadedness. Patient was sitting on stool at the time and when he went to stand up he felt like his bilateral legs were weak and "wobbly". Reports tried taking meclizine once with no improvement of symptoms. Patient states felt nauseated and vomited twice. Reports checked his BSG and was not hypoglycemic. Patient states slept well last night and this morning woke up was able to stand however with walking he feels like his legs are wobbly and he is off balance. Denies any falls. Denies headache, vision changes, tinnitus, hearing loss, extremity paresthesias, extremity pain. Patient reports no further nausea or vomiting. Denies any abdominal pain. Patient with history symptomatic orthostatic hypotension in 03/2019 and his PCP had discontinued spironolactone and his furosemide was decreased from 80 mg a day to 40 mg daily. His lisinopril decreased to 10 mg daily the beginning of April 2019. 05/06/2019 patient had noted increased lower extremity edema with left greater than right and weight gain and his Lasix was increased to 60 mg a day. And continued swelling and patient has been taking Lasix 80 mg added 2-3 days a week alternating with 60 mg daily 05/20/2019. Patient has been taking Lasix 80 mg every other day alternating with 60 mg daily. Patient states lower extremity edema has improved but has not completely resolved. Denies other med changes. Denies any CP, SOB. Denies fever/chills, diaphoresis, diarrhea, constipation, GUERRA, syncope, vision changes, neck pain, back pain, orthopnea, palpitations, cough, sore throat, choking, otalgia, rhinorrhea, abdominal pain, paresthesias, upper extremity weakness, speech changes, changes in cognition, rashes, urinary symptoms, recent travel, ill contacts. Allergies Allergy/AdvReac Type Severity Reaction Status Date / Time Pndrxmi-Idh-Vqt Reductase Allergy Unknown Leg Verified 06/12/19 11:46 Inhibitor weakness and pain Home Medications Home Medications Medication Instructions Recorded Confirmed Type finasteride 5 mg PO HS 06/17/18 06/12/19 History levothyroxine 50 mcg PO QAM 06/17/18 06/12/19 History metoprolol succinate 100 mg PO PM 06/17/18 06/12/19 History multivitamin 1 tab PO Q OTHER DAY 06/17/18 06/12/19 History terazosin 10 mg PO HS 06/17/18 06/12/19 History warfarin 2.5 mg PO 5XWK 06/17/18 06/12/19 History warfarin 5 mg PO 2XWK 06/17/18 06/12/19 History aspirin 81 mg PO Q OTHER DAY 03/27/19 06/12/19 History isosorbide mononitrate 30 mg PO DAILY 03/27/19 06/12/19 History simvastatin 5 mg PO HS 03/27/19 06/12/19 History furosemide 60 mg PO DAILY 06/03/19 06/12/19 History lisinopril 10 mg PO DAILY 06/03/19 06/12/19 History metformin 500 mg PO BID 06/12/19 06/12/19 History Past Med/Surg History Medical History (Updated 06/12/19 @ 14:49 by Susi Barnes PA-C) Atrial fibrillation Bladder cancer (Resolved) BPH (benign prostatic hyperplasia) Chronic CHF (Acute) Coronary artery disease Diabetes mellitus, type II History of cataract HTN (hypertension) Hypothyroidism Pacemaker Tachy-eula syndrome TIA (transient ischemic attack) (Acute) Surgical History (Updated 06/12/19 @ 14:49 by Susi Barnes PA-C) History of bladder surgery History of tonsillectomy and adenoidectomy Hx of CABG (Chronic) Family History (Updated 06/12/19 @ 14:50 by Susi Barnes PA-C) Father Coronary heart disease Social History (Updated 06/12/19 @ 14:51 by Susi Barnes PA-C) Preferred Language: [place] Communication Ability: Effective State Inspector Required: No Beliefs That Will Affect Care: None Current Living Situation: Spouse Other Information That Helps Us Care for You: No Feels Safe at Home: Yes Safety Concerns: Feels Safe At This Time Smoking Status: Unknown if ever smoked Hx Alcohol Use: No Hx Substance Use: No Review of Systems Review of Systems: All systems reviewed & are unremarkable except as noted in HPI & below Physical Exam Physical Exam: General: no distress, WDWN Head: normocephalic, atraumatic Eyes: PERRL, EOM's intact, no nystagmus, conjunctiva non-injected, anicteric ENT: hard of hearing, uses hearing aids. normal inspection external ears, nose, mucous membranes moist Neck: supple, trachea midline, non-tender Lungs: clear, no respiratory distress, no wheezing/rhonchi/rales CV: RRR, 1+ pretibial edema LLE, trace edema RLE Abd: normal BS, soft, non-tender Ext: no cyanosis, no calf tenderness Neuro: A&O x 3, normal affect, face is strong and symmetric, no dysarthria, tongue is midline, muscle tone normal, no pronator drift, no noted upper or lower extremity weakness with testing while supine Skin: warm, dry Results & Data Results & Data ([facility]) Vital Signs (Past 12 Hours) Vital Signs Temp Pulse Pulse Resp BP BP Pulse Ox 04/29/20 14:32 62 18 116/71 96 06/12/19 13:27 66 20 113/67 97 06/12/19 11:29 95 06/12/19 10:55 36.7 C 79 18 134/82 95 Laboratory Results Short CBC 06/12/19 Range/Units 11:30 WBC 7.00 (4.8-10.8) K/uL Hgb 11.6 L (14.0-18.0) g/dL Hct 33.8 L (42-52) % Plt Count 231 (130-400) K/uL BMP 06/12/19 11:30 Sodium 138 Potassium 3.7 Chloride 103 Carbon Dioxide 26 BUN 20 H Creatinine 1.21 Glucose 151 H Calcium 9.0 Cardiac Enzymes 06/12/19 Range/Units 11:30 Troponin I 0.025 (0-0.045) ng/ml Liver Function 06/12/19 Range/Units 11:30 Total Bilirubin 0.5 (0.2-1) mg/dl AST 18 (15-37) U/L ALT 21 (12-78) U/L Alkaline Phosphatase 67 (45-117) U/L Albumin 3.5 (3.4-5.0) gm/dl Urine 06/12/19 Range/Units 11:57 Urine Color Yellow Urine Appearance Clear (Clear) Urine pH 6.0 (4.5-7.5) Ur Specific [place] 1.015 (1.000-1.030) Urine Protein Negative (Negative) Urine Glucose (UA) Negative (Negative) Diagnostic Findings CT HEAD: Impression: No significant change compared to the prior study. No acute intracranial abnormality. CXR: IMPRESSION: 1. Cardiomegaly with pulmonary vascular congestion. 2. 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 ECG Findings: + paced rhythm Supervising Physician Co-Signing Physician Notes I saw this patient with the physician assistant professor of nursing, I participated in the history, physical, review of systems, and physical exam. I reviewed the medications with the patient and the physician assistant professor of nursing and helped reconcile the medications. I helped take a detailed family and social history as well. I formulated the assessment and plan personally with the physician assistant professor of nursing and went over it with the patient. Physical Exam Gen-AAO x 3, NAD, Afebrile Head-NCAT, EOMI, PERRLA, Anicteric Sclera, No Posterior Pharyngeal Erythema Neck-Supple, No JVD, No Thyromegaly, No Masses, No LAD, No Bruits Lungs-Clear to Auscultation Bilaterally, No Rales, No Rhonchi, No Wheezing, No Crepitus Chest-No S4, +S1, +S2, No S3, No Murmurs, No Rubs, No Gallops, No Ectopy Abdomen-Soft, Bowel Sounds Present, Non Tender, Non Distended, No Hepatomegaly, No Splenomegaly, No Palpable Masses, No Rebound, No Rigidity, No Guarding Musculoskeletal-Full Range of Motion Bilaterally, No CVAT Extremities-No Cyanosis, No Clubbing, No Edema Nuero-Cranial Nerves II-XII grossly intact, Motor WNL, DTRs WNL, Strength WNL, Non Focal Psych-Normal Mood (1) Chronic CHF Heart failure type: diastolic Qualified Code(s): I50.32 - Chronic diastolic (congestive) heart failure (2) Atrial fibrillation Atrial fibrillation type: longstanding persistent Qualified Code(s): I48.11 - Longstanding persistent atrial fibrillation
[2019-06-12] MEDS ORDERED: CARBOHYDRATES FOR HYPOGLYCEMIA PO PRN (15:30)
[2019-06-12] MEDS ORDERED: GLUCOSE 10 TABS/TUBE PO PRN (15:30)
[2019-06-12] MEDS ORDERED: DEXTROSE 50% 50 ML SYRINGE IV PRN (15:30)
[2019-06-12] MEDS ORDERED: GLUCOSE 40% GEL 15 GM TUBE PO PRN (15:30)
[2019-06-12] MEDS ORDERED: GLUCAGON FOR INJ 1 MG VIAL SQ PRN (15:30)
[2019-06-12] MEDS ORDERED: ACETAMINOPHEN 325 MG TAB PO PRN (15:30)
[2019-06-12] MEDS ORDERED: WARFARIN SOD 2.5 MG TAB PO SCH (16:00)
[2019-06-12] MEDS: INSULIN ASPART 100 UNITS/ML 3 ML PEN SC SCH ×2 (17:36→20:06)
[2019-06-12] MEDS ORDERED: TERAZOSIN HCL 5 MG CAP PO SCH (21:00)
[2019-06-12] MEDS ORDERED: FINASTERIDE 5 MG TAB PO SCH (21:00)
[2019-06-12] MEDS ORDERED: METOPROLOL SUCC 50MG EXT REL TAB PO SCH (21:00)
[2019-06-12] MEDS ORDERED: SIMVASTATIN 5 MG TAB PO SCH (21:00)
[2019-06-13 06:09] LABS: INR 1.9 (0.9-1.1); Prothrombin Time 19.3 Seconds (9.0-12.0)
[2019-06-13 06:17] LABS: Hematocrit (blood only) 31.5 % (42-52); Hemoglobin 10.6 g/dL (14.0-18.0); Mean Corpuscular Hemoglobin 33.1 pg (25-34); Mean Corpuscular Hgb Conc 33.7 g/dL (32-36); Mean Corpuscular Volume 98.4 fL (80-100); Mean Platelet Volume 10.3 fL (7.4-10.4); Platelet Count 201 K/uL (130-400); RDW Coefficient of Variation 13.2 % (11.5-14.5); RDW Standard Deviation 47.5 fL (36.4-46.3); White Blood Count 5.41 K/uL (4.8-10.8)
[2019-06-13 06:32] LABS: BUN Creatinine Ratio 17.2 (10-20); Calcium 8.5 mg/dl (8.5-10.1); Creatinine Clr Calc Pharmacy 44.3 ml/min; Est GFR (African American) 75.2; Est GFR (Non-African American) 64.9; Potassium 3.7 mmol/L (3.5-5.1)
--- NOTE | 2019-06-13 07:29 | Discharge Summary ---
Date of Service June 13, 2019 Admission HPI Per Admitting Provider Pt is 89 y/o M with PMH CAD s/p CABG x2 in 1990, angina pectoris, chronic CHF, atrial fibrillation on Coumadin, tachybradycardia syndrome s/p pacemaker, HTN, HLD, h/o TIA, DM II, BPH, bladder CA s/p resection 2013, hypothyroidism presented to ER with complaint of leg weakness since yesterday. Patient states does not usually use walker or cane to ambulate. States yesterday after eating lunch turned his head and reports "things drifted to the left". States did not feel like dizziness or lightheadedness. Patient was sitting on stool at the time and when he went to stand up he felt like his bilateral legs were weak and "wobbly". Reports tried taking meclizine once with no improvement of symptoms. Patient states felt nauseated and vomited twice. Reports checked his BSG and was not hypoglycemic. Patient states slept well last night and this morning woke up was able to stand however with walking he feels like his legs are wobbly and he is off balance. Denies any falls. Denies headache, vision changes, tinnitus, hearing loss, extremity paresthesias, extremity pain. Patient reports no further nausea or vomiting. Denies any abdominal pain. Patient with history symptomatic orthostatic hypotension in 03/2019 and his PCP had discontinued spironolactone and his furosemide was decreased from 80 mg a day to 40 mg daily. His lisinopril decreased to 10 mg daily the beginning of April 2019. 05/06/2019 patient had noted increased lower extremity edema with left greater than right and weight gain and his Lasix was increased to 60 mg a day. And continued swelling and patient has been taking Lasix 80 mg added 2-3 days a week alternating with 60 mg daily 05/20/2019. Patient has been taking Lasix 80 mg every other day alternating with 60 mg daily. Patient states lower extremity edema has improved but has not completely resolved. Denies other med changes. Denies any CP, SOB. Denies fever/chills, diaphoresis, diarrhea, constipation, GUERRA, syncope, vision changes, neck pain, back pain, orthopnea, palpitations, cough, sore throat, choking, otalgia, rhinorrhea, abdominal pain, paresthesias, upper extremity weakness, speech changes, changes in cognition, rashes, urinary symptoms, recent travel, ill contacts. Admission Exam Per Admitting Provider General: no distress, WDWN Head: normocephalic, atraumatic Eyes: PERRL, EOM's intact, no nystagmus, conjunctiva non-injected, anicteric ENT: hard of hearing, uses hearing aids. normal inspection external ears, nose, mucous membranes moist Neck: supple, trachea midline, non-tender Lungs: clear, no respiratory distress, no wheezing/rhonchi/rales CV: RRR, 1+ pretibial edema LLE, trace edema RLE Abd: normal BS, soft, non-tender Ext: no cyanosis, no calf tenderness Neuro: A&O x 3, normal affect, face is strong and symmetric, no dysarthria, tongue is midline, muscle tone normal, no pronator drift, no noted upper or lower extremity weakness with testing while supine Skin: warm, dry Principal Diagnosis Weakness, Dizziness, Orthostasis AFIB HTN DM II BPH Hypothyroid Anemia Chronic DCHF Bladder CA Chronic A/C Discharge Exam Physical Exam Gen-AAO x 3, NAD, Afebrile Head-NCAT, EOMI, PERRLA, Anicteric Sclera, No Posterior Pharyngeal Erythema Neck-Supple, No JVD, No Thyromegaly, No Masses, No LAD, No Bruits Lungs-Clear to Auscultation Bilaterally, No Rales, No Rhonchi, No Wheezing, No Crepitus Chest-No S4, +S1, +S2, No S3, No Murmurs, No Rubs, No Gallops, No Ectopy Abdomen-Soft, Bowel Sounds Present, Non Tender, Non Distended, No Hepatomegaly, No Splenomegaly, No Palpable Masses, No Rebound, No Rigidity, No Guarding Musculoskeletal-Full Range of Motion Bilaterally, No CVAT Extremities-No Cyanosis, No Clubbing, No Edema Nuero-Cranial Nerves II-XII grossly intact, Motor WNL, DTRs WNL, Strength WNL, Non Focal Psych-Normal Mood Discharge Data Allergies Allergy/AdvReac Type Severity Reaction Status Date / Time Rlsslwo-Kzt-Arr Reductase Allergy Unknown Leg Verified 06/12/19 11:46 Inhibitor weakness and pain Consultations 06/12/19 13:37 ED Decision to Admit Stat 06/12/19 15:30 Consult Case Management - Discharge Planning Routine Ordered Studies 06/12/19 11:12 CT head/brain wo con Stat Current Diagnoses Hypothyroidism, unspecified (06/12/19) Type 2 diabetes mellitus without complications (06/12/19) Transient cerebral ischemic attack, unspecified (06/12/19) Essential (primary) hypertension (06/12/19) Atherosclerotic heart disease of [place] coronary artery without angina pectoris (06/12/19) Longstanding persistent atrial fibrillation (06/12/19) Sick sinus syndrome (06/12/19) Chronic diastolic (congestive) heart failure (06/12/19) Benign prostatic hyperplasia without lower urinary tract symptoms (06/12/19) Unsteadiness on feet (06/12/19) Other symptoms and signs involving the musculoskeletal system (06/12/19) Allergies [place]b-Wnc-Kyx Reductase Inhibitor Allergy (Unknown, Verified 06/12/19 11:46) Leg weakness and pain Height/Weight/Isolation Height 5 ft 6 in Weight 76.1 kg Chemistry 06/12/19 06/13/19 11:30 05:45 Sodium 138 138 Potassium 3.7 3.7 Chloride 103 105 Carbon Dioxide 26 26 Anion Gap 9.0 7.0 BUN 20 H 18 Creatinine 1.21 1.02 Glucose 151 H 108 H Urinalysis 06/12/19 11:57 Urine Color Yellow Urine Appearance Clear Urine pH 6.0 Ur Specific [place] 1.015 Urine Protein Negative Urine Glucose (UA) Negative Urine Ketones Negative Urine Blood Negative Urine Nitrite Negative Urine Bilirubin Negative Hospital Course (1) Bilateral leg weakness: (2) Gait instability: Pt is 89 y/o M with PMH CAD s/p CABG x2 in 1990, angina pectoris, chronic CHF, atrial fibrillation on Coumadin, tachybradycardia syndrome s/p pacemaker, HTN, HLD, h/o TIA, DM II, BPH, bladder CA s/p resection 2013, hypothyroidism presented to ER with complaint of bilateral leg weakness since yesterday. Yesterday with episode of turning head and felt "things drifted to the left" followed by vomiting x 2 and noted bilateral leg weakness with standing. Denies GUERRA, vision changes, upper extremity weakness, paresthesias, extremity pain. In ER pt afebrile, BP: 134/82, 113, 67, P: 79, R: 18, 95% on RA. No leukocytosis, H/H: 11.6/33 (stable anemia with baseline hgb: 10-11), INR: 2.0, no significant electrolyte abnormality, TSH WNL. UA unremarkable. CXR without infiltrate CT Head: no acute findings DDX: orthostatic hypotension, vertigo, statin induced myopathy, TIA/stroke Symptoms do not seem like classic vertigo, no acute stroke noted on CT head and no focal findings on exam. No extremity pain so less likely myopathy. May be med side effect/orthostatic hypotension as has had recent med changes -CPK -Check orthostatic vitals -Fall precautions -DC after PT/OT eval (3) Atrial fibrillation: On Coumadin INR: 2.0 -Continue Coumadin, metoprolol (4) Chronic CHF: Chronic diastolic CHF Appears euvolemic at this time 03/2019 spironolactone d/c and furosemide was decreased from 80 mg a day to 40 mg daily secondary to orthostatic hypotension.05/06/2019 Lasix was increased to 60 mg/daily secondary to LE edema. Lasix 80 mg added 2-3 times a week alternating with 60 mg daily 05/20/2019. Pt has been alternating 80mg and 60mg every other day Outpatient weight of 79kg on 05/06/19 and 05/20/19 -Continue Lasix (5) TIA (transient ischemic attack): -continue aspirin (6) Coronary artery disease: Status post CABG in 1990 No chest pain, shortness of breath -Continue aspirin, metoprolol, isosorbide, statin (7) Tachy-eula syndrome: Status post pacemaker (8) HTN (hypertension): Recent lisinopril decreased to 10 mg daily the beginning of April 2019 Current BP controlled, had BP of 113/67 in ER -Monitor BP -Continue lisinopril, metoprolol (9) Diabetes mellitus, type II: A1c: 9.7 on 03/2019 -Hold metformin -NovoLog setting scale per protocol (10) BPH (benign prostatic hyperplasia): -Continue finasteride, terazosin -Monitor for further orthostatic hypotension (11) Hypothyroidism: TSH: 3.5 -Continue levothyroxine DC home and f/u c Dr Mosqueda Total Time Total Time Spent Total Time Spent (In Minutes): 45 mins Total Time Includes: Examination of the Patient, Discharge Planning, Medication Reconciliation and Communication With Other Providers Discharge Plan Discharge Items Patient Disposition: Home - Self-Care Reason For Visit: LEG WEAKNESS Discharge Diagnosis: Weakness, Dizziness, Orthostasis AFIB HTN DM II BPH Hypothyroid Anemia Chronic DCHF Bladder CA Chronic A/C Condition on Discharge: Good Activity: Resume your previous activity Bathing: No limitations Sexual Activity: When tolerated Exercise/Sports: Gradually increase as tolerated Driving/Machine Use: No limitations Weightbearing: Full weightbearing Non-emergency contact: Primary Care Provider Call non-emergency contact if: you have any medication questions Follow-up/Referrals: Ty Mosqueda, [Primary Care Provider] - Diet: Carb Consistent or DM2 and Heart Healthy Addtl Attending Provider Instructions: Take Finasteride, Metoprolol, and Terazosin at Bedtime, Take Lasix, Imdur, and Lisinopril in the Morning Pending Studies at Discharge: Yes Studies:: PT/OT Eval pending Stand-Alone Forms: My [employer], Smoking Cessation Medications and DC Order Prescriptions: New furosemide 20 mg Tablet 40 mg PO DAILY Qty: 30 RF: 0 Continued lisinopril 10 mg tablet 10 mg PO DAILY RF: 0 metformin 500 mg tablet 500 mg PO BID RF: 0 finasteride 5 mg tablet 5 mg PO HS RF: 0 multivitamin Tablet 1 tab PO Q OTHER DAY RF: 0 metoprolol succinate 100 mg tablet extended release 24 hr 100 mg PO PM RF: 0 warfarin 2.5 mg tablet 5 mg PO 2XWK RF: 0 warfarin 2.5 mg tablet 2.5 mg PO 5XWK RF: 0 levothyroxine 50 mcg tablet 50 mcg PO QAM RF: 0 terazosin 10 mg capsule 10 mg PO HS RF: 0 isosorbide mononitrate 30 mg tablet extended release 24 hr 30 mg PO DAILY RF: 0 aspirin 81 mg Tablet,Delayed Release (Dr/Ec) 81 mg PO Q OTHER DAY RF: 0 simvastatin 5 mg tablet 5 mg PO HS RF: 0 Discontinued furosemide 20 mg tablet 60 mg PO DAILY RF: 0 Discharge Orders: Discharge Order (Routine); Ordered 06/13/19 Ordered By: Wiliam Rocha Admission Data Admit Date/Time: 06/12/19 13:48 Attending Provider: Wiliam Rocha Admit Provider: Wiliam Rocha Primary Care Provider: Ty Mosqueda Other Providers: Wiliam Rocha
[2019-06-13] MEDS: LEVOTHYROXINE SODIUM 50 MCG TABLET PO SCH ×2 (08:48→10:30)
[2019-06-13] MEDS: INSULIN ASPART 100 UNITS/ML 3 ML PEN SC SCH ×2 (08:48→13:00)
[2019-06-13] MEDS ORDERED: ISOSORBIDE MONO EXTENDED REL 30 MG TABCR PO SCH (09:00)
[2019-06-13] MEDS ORDERED: lisinopriL 10 MG TAB PO SCH (09:00)
[2019-06-13] MEDS ORDERED: FUROSEMIDE 20 MG TAB PO SCH (09:00)
[2019-06-13 11:16] VITALS: PULSE 67; TEMP 98.1; O2SAT 94
[2019-06-13 12:10] VITALS: BP 116/71
[2019-06-14] MEDS ORDERED: ASPIRIN 81 MG ECTAB PO SCH (09:00)
[2019-06-14] MEDS ORDERED: MULTIVITAMIN TAB PO SCH (09:00)
[2019-06-14] MEDS ORDERED: WARFARIN SOD 5 MG TAB PO SCH (16:00)
== END 2019-06-13 14:22 | disposition home or self-care (01) ==
LOC: ED 10:52 → 2N 10:52

== ENCOUNTER 2019-06-14 10:37 | Inpatient (IN) ==
[~2019-06-14 10:37] MED LIST changes: -ASPI81TA28 PO; -CHOLTAB PO; -CRS/10 PO; -CYAN10005 PO; -FINA5TAB PO; -FURO-85 PO; -LEVO25TA5 PO; -LISI40TA PO; -METO100T44 PO; +SODIUM CHLORIDE 0.9% 1000ML 1,000 ML IV SCH; -TERA1CAP63 PO; -WARF2.5T8 PO; -saline nasal spray
--- NOTE | 2019-06-14 10:47 | Emergency Department Note ---
Impression & Plan Acute CVA (cerebrovascular accident) ED Provider Note NAME: ZAMZAM DEL ANGEL AGE: 89 SEX: M : 1930 ARRIVES VIA: Ambulance INFORMANT: Patient, ALS provider ED PROVIDER(S): Shaq Rain DO CHIEF COMPLAINT: Left-sided weakness HPI: The patient is an 89-year-old male who presented to the emergency department for an evaluation of left-sided weakness. The patient has a history of stroke and TIA in the past. He was urinating when he started having discomfort and dysesthesia in his left upper extremity. He started noticing difficulty ambulating. Weakness started in his left arm but then went to his left leg. His who he lives with noticed that he was having a stroke and called 911. The patient arrived at the emergency department as a stroke alert. I met the patient in the hallway going to CAT scan. The patient states that his symptoms are significantly improved at this time. He still complains of some weakness in his left arm but states his left leg feels almost back to normal. He denies having any difficulty talking. He has no headache nausea or vomiting. He states that he was recently discharged from our facility yesterday for similar complaints. The patient states that he has a history of stroke in the past. He also takes warfarin for atrial fibrillation. He denies having any chest pain recently. He has had no shortness of breath. He has had no sick exposures or contacts. ROS: See above HPI for pertinent positives & negatives. A total of 10 systems reviewed and were otherwise negative. PAST MEDICAL HISTORY: See Below PAST SURGICAL HISTORY: See Below FAMILY HISTORY: See Below SOCIAL HISTORY: See Below HOME MEDICATIONS: See Below ALLERGIES: See Below VITALS: See Below PHYSICAL EXAMINATION: GENERAL: The patient is awake and alert. He is somewhat anxious appearing but comfortable. EYES: The conjunctivae are clear. The pupils are round and reactive. EARS, NOSE, MOUTH AND THROAT: The nose is without any evidence of any deformity. Mucous membranes are dry. NECK: The neck is nontender and supple. RESPIRATORY: Diminished breath sounds are noted at both bases there is no tachypnea or conversational dyspnea. CARDIOVASCULAR: Ectopy was noted to auscultation. No definite murmur was noted. GASTROINTESTINAL: The abdomen is soft. Abdomen is nontender. MUSCULOSKELETAL/EXTREMITIES: There is no evidence of gross deformity full range of motion is noted in the hips and shoulders. SKIN: Pedal edema was noted bilaterally. Venous stasis changes were noted. Skin was warm and dry. NEUROLOGIC: Patient is awake alert and oriented x3. There is no facial droop. There was a slight drift in the left upper extremity. Senior Database Engineer strength was diminished in the left hand compared to the right. Patient is able to hold each leg off the bed for greater than 5 seconds. MEDICAL DECISION MAKING: The patient is an 89-year-old male who has a history of CHF as well as TIAs in the past. He does have a history of stroke. The patient presented to the emergency department for an evaluation of left-sided weakness. The patient had very severe symptoms on scene. This was reported by the agriculture intern. The patient symptoms significantly improved prior to arrival. The patient was made a stroke alert prior to arrival. He does not appear to meet specific criteria for TPA at this time given his waxing and waning of symptoms, his age, his Coumadin use, and changes already being noted on CAT scan. I discussed this with the [facility] stroke neurologist. We are in agreement at this time that the patient would not be the best candidate for TPA. He does not appear to have a large vessel occlusion on physical exam or by CTA. I discussed the patient's laboratory and radiographic studies with him. I also discussed his case with the [facility] hospitalist group. They have agreed to evaluate the patient in the emergency department for further management and disposition. The patient was reevaluated multiple times. Triage Nursing notes reviewed. Prior medical records reviewed Vital Signs: reviewed and remarkable for no significant abnormalities Differential diagnosis: Infection, dehydration, metabolic abnormality, hypo/hyperglycemia, electrolyte disturbance, anemia, hypoxia, cardiac sources, intracerebral event, toxicologic, neurologic, as well as other pathologies. ER treatment provided: See below Diagnostics interpreted by me: ECG: EKG was obtained in the emergency department. My interpretation is ventricular paced rhythm at 69 bpm. No alturas beats were noted. There is no ectopy. Cardiac Monitoring: An order was placed for continuous cardiac monitoring. The monitor shows a rate of 82 with paced rhythm. Laboratory studies: As stated above and show below. Imaging studies: See below Consultation(s): 1045: I discussed this case with Dr. Hendrickson who is on-call for the [facility] stroke neurologist. She will evaluate the patient via the telestroke monitor. 1115: I discussed the case with Evangelina bullock. She is on-call for the [facility] hospitalist group. ED COURSE: 1038: I met the patient in the hallway as he arrived via ambulance. I accompanied the patient to CT. Procedures: none Critical Care: I have personally spent greater than 45 minutes of critical care time in the direct management of this patient. This includes bedside care, interpretation of diagnostic studies, and testing, discussion with consultants, patient, and family members, and other required patient management activities. This 45 minutes is in excess of all separately billable procedures. 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) Basal cell carcinoma of scalp (Resolved 11/29/11) Basal cell carcinoma of skin (Resolved 11/29/11) Bladder cancer (Resolved) BPH (benign prostatic hyperplasia) Chronic anticoagulation (Inactive) Chronic diastolic (congestive) heart failure Coronary artery disease Diabetes mellitus, type II History of cataract HTN (hypertension) Hypothyroidism Pacemaker Tachy-eula syndrome TIA (transient ischemic attack) Surgical History History of bladder surgery History of tonsillectomy and adenoidectomy S/P CABG x 2 1990 Family History Father Coronary heart disease Social History Preferred Language: Nauruan Communication Ability: Effective Social And Political Studies Professor Required: No Beliefs That Will Affect Care: None Current Living Situation: Spouse Other Information That Helps Us Care for You: No Feels Safe at Home: Yes Safety Concerns: Feels Safe At This Time Smoking Status: Former smoker Smoking End Date: 1956 ; Second Hand Exposure: No ; Hx Alcohol Use: Yes ([place]) Alcohol type: hard liquor Alcohol Intake Frequency Comment: 1 drink a day Hx Substance Use: No Allergies Allergies Allergy/AdvReac Type Severity Reaction Status Date / Time Raprucs-Gfu-Yec Reductase Allergy Unknown Leg Verified 06/14/19 12:34 Inhibitor weakness and pain Home Meds Home Medications Medication Instructions Recorded Confirmed finasteride 5 mg PO HS 06/17/18 06/14/19 levothyroxine 50 mcg PO QAM 06/17/18 06/14/19 metoprolol succinate 100 mg PO PM 06/17/18 06/14/19 multivitamin 1 tab PO Q OTHER DAY 06/17/18 06/14/19 terazosin 10 mg PO HS 06/17/18 06/14/19 warfarin 2.5 mg PO SUTUWETHSA 06/17/18 06/14/19 warfarin 5 mg PO MOFR 06/17/18 06/14/19 aspirin 81 mg PO Q OTHER DAY 03/27/19 06/14/19 isosorbide mononitrate 30 mg PO DAILY 03/27/19 06/14/19 simvastatin 5 mg PO HS 03/27/19 06/14/19 lisinopril 10 mg PO DAILY 06/03/19 06/14/19 metformin 500 mg PO BID 06/12/19 06/14/19 cholecalciferol (vitamin D3) 400 unit PO DAILY 06/14/19 06/14/19 [Vitamin D3] cyanocobalamin (vitamin B-12) 1,000 mcg PO DAILY 06/14/19 06/14/19 [Vitamin B-12] meclizine 12.5 mg PO TID PRN 06/14/19 06/14/19 Previous Rx's Medication Instructions Recorded furosemide 40 mg PO DAILY #30 tab 06/13/19 Results & Data (ED) Vital Signs Vital Signs - 24 hr 06/14/19 10:40 06/14/19 11:14 06/14/19 11:33 Temperature Source Oral Pulse Rate 68 Pulse Rate [Apical] 64 64 Respiratory Rate 18 16 16 Respiratory Effort / Characteristics Non-Labored Respiratory Depth Normal Blood Pressure 154/71 H Blood Pressure [Left Arm] 131/81 125/72 Blood Pressure Mean 98 Blood Pressure Mean [Left Arm] 97 89 Blood Pressure Position Lying Pulse Oximetry 98 97 96 Oxygen Delivery Method Room Air Room Air Room Air Sepsis Recent Fever Within 48 Hours No Sepsis Action Taken by Nursing No Action Required 06/14/19 11:37 Temperature Source Pulse Rate Pulse Rate [Apical] 60 Respiratory Rate 16 Respiratory Effort / Characteristics Respiratory Depth Blood Pressure Blood Pressure [Left Arm] 138/68 Blood Pressure Mean Blood Pressure Mean [Left Arm] 91 Blood Pressure Position Pulse Oximetry 95 Oxygen Delivery Method Room Air Sepsis Recent Fever Within 48 Hours Sepsis Action Taken by Mcfp Medications Current Medication List: was personally reviewed by tn Laboratory Data Attestation: I reviewed the patient's lab results. Result diagrams: 06/14/19 10:55 06/14/19 10:55 Lab Results 06/14/19 06/14/19 06/14/19 Range/Units 10:55 10:55 10:55 WBC 6.32 (4.8-10.8) K/uL RBC 3.09 L (4.7-6.1) M/uL Hgb 10.7 L (14.0-18.0) g/dL Hct 30.6 L (42-52) % MCV 99.0 (80-100) fL MCH 34.6 H (25-34) pg MCHC 35.0 (32-36) g/dL RDW Std Deviation 47.1 H (36.4-46.3) fL RDW Coeff of Ashu 13.2 (11.5-14.5) % Plt Count 197 (130-400) K/uL MPV 9.4 (7.4-10.4) fL Immature Gran % (Auto) 0.3 % Neut % (Auto) 62.8 % Lymph % (Auto) 21.0 % [place] % (Auto) 12.7 % Eos % (Auto) 3.0 % Baso % (Auto) 0.2 % Immature Gran # (Auto) 0.02 (0.00-0.02) K/uL Neut # (Auto) 3.97 (1.4-6.5) K/uL Lymph # (Auto) 1.33 (1.2-3.4) K/uL [place] # (Auto) 0.80 H (0.11-0.59) K/uL Eos # (Auto) 0.19 (0-0.5) K/uL Baso # (Auto) 0.01 (0-0.2) K/uL PT 17.9 H (9.0-12.0) Seconds POC INR (0.9-1.1) INR 1.7 H (0.9-1.1) APTT 27.1 (21.0-31.0) Seconds PTT Ratio 1.0 Sodium (136-145) mmol/L Potassium (3.5-5.1) mmol/L Chloride (98-107) mmol/L Carbon Dioxide (21-32) mmol/L Anion Gap (3-11) BUN (7-18) mg/dl Creatinine (0.6-1.4) mg/dl Est Cr Clr Drug Dosing ml/min Est GFR ( Amer) Est GFR (Non-Af Amer) BUN/Creatinine Ratio (10-20) Glucose (70-99) mg/dl POC Glucose (70-99) mg/dl Calcium (8.5-10.1) mg/dl Magnesium (1.8-2.4) mg/dl Total Bilirubin (0.2-1) mg/dl AST (15-37) U/L ALT (12-78) U/L Alkaline Phosphatase (45-117) U/L Troponin I (0-0.045) ng/ml Total Protein (6.4-8.2) gm/dl Albumin (3.4-5.0) gm/dl Globulin (2.5-4.0) gm/dl Albumin/Globulin Ratio (0.9-2) Blood Type A Positive Antibody Screen NEGATIVE 06/14/19 06/14/19 06/14/19 Range/Units 10:55 10:55 10:55 WBC (4.8-10.8) K/uL RBC (4.7-6.1) M/uL Hgb (14.0-18.0) g/dL Hct (42-52) % MCV (80-100) fL MCH (25-34) pg MCHC (32-36) g/dL RDW Std Deviation (36.4-46.3) fL RDW Coeff of Ashu (11.5-14.5) % Plt Count (130-400) K/uL MPV (7.4-10.4) fL Immature Gran % (Auto) % Neut % (Auto) % Lymph % (Auto) % Kent[place] % (Auto) % Eos % (Auto) % Baso % (Auto) % Immature Gran # (Auto) (0.00-0.02) K/uL Neut # (Auto) (1.4-6.5) K/uL Lymph # (Auto) (1.2-3.4) K/uL Kenton # (Auto) (0.11-0.59) K/uL Eos # (Auto) (0-0.5) K/uL Baso # (Auto) (0-0.2) K/uL PT (9.0-12.0) Seconds POC INR 1.7 H (0.9-1.1) INR (0.9-1.1) APTT (21.0-31.0) Seconds PTT Ratio Sodium 135 L (136-145) mmol/L Potassium 3.6 (3.5-5.1) mmol/L Chloride 102 (98-107) mmol/L Carbon Dioxide 26 (21-32) mmol/L Anion Gap 7.0 (3-11) BUN 23 H (7-18) mg/dl Creatinine 1.42 H D (0.6-1.4) mg/dl Est Cr Clr Drug Dosing 36.5 ml/min Est GFR ( Amer) 50.4 Est GFR (Non-Af Amer) 43.5 BUN/Creatinine Ratio 15.9 (10-20) Glucose 161 H (70-99) mg/dl POC Glucose 194 H (70-99) mg/dl Calcium 8.2 L (8.5-10.1) mg/dl Magnesium 2.2 (1.8-2.4) mg/dl Total Bilirubin 0.6 (0.2-1) mg/dl AST 17 (15-37) U/L ALT 19 (12-78) U/L Alkaline Phosphatase 57 (45-117) U/L Troponin I 0.023 (0-0.045) ng/ml Total Protein 6.7 (6.4-8.2) gm/dl Albumin 3.1 L (3.4-5.0) gm/dl Globulin 3.6 (2.5-4.0) gm/dl Albumin/Globulin Ratio 0.9 (0.9-2) Blood Type Antibody Screen Administered Medications Sodium Chloride (Nss 1000ml) 1,000 mls @ 100 mls/hr IV .Q10H SHAKIRA Stop: 07/14/19 13:37 Last Admin: 06/14/19 13:57 Dose: 100 mls/hr Documented by: [id number] Discontinued Medications Sodium Chloride (Nss 1000ml) 1,000 mls @ 50 mls/hr IV .Q20H SHAKIRA Stop: 07/14/19 10:29 Last Admin: 06/14/19 12:00 Dose: 50 mls/hr Documented by: [id number] Sodium Chloride (Nss 1000ml) 500 mls @ 999 mls/hr IV .Q31M ONE Stop: 06/14/19 12:24 Last Infusion: 06/14/19 11:55 Dose: 0 mls/hr Documented by: [id number] Admin: 06/14/19 11:15 Dose: 999 mls/hr Documented by: [id number] Ioversol (Optiray 320 125ml) 120 ml IV ONCE PRN PRN Reason: Interaction Checking Stop: 06/18/19 10:56 Last Admin: 06/14/19 10:57 Dose: 120 ml Documented by: [id number] Imaging Data Radiologist's Impression: CT head/brain wo con CLINICAL HISTORY: 89 years-old Male with Stroke evaluation . Acute strokelike symptoms TECHNIQUE: Multiple axial CT images of the head were obtained without contrast. A dose lowering technique was utilized adhering to the principles of ALARA. CT DOSE: 1310.99 mGy.cm COMPARISON: Head CT 06/17/2018, 06/12/2019. FINDINGS: No acute intracranial hemorrhage, midline shift, intracranial mass, hydrocephalus, territorial ischemia or abnormal extra-axial collection. Age- related involutional changes with ex vacuo ventriculomegaly. Extensive patchy white matter hypodensities redemonstrated suggestive chronic microvascular ischemic disease. Cerebral vascular calcifications. Mild encephalomalacia of the left frontal lobe from remote infarct. Ill-defined area of decreased attenuation with blurring of the pringle-white interface involves the mid and inferomedial a spect of the right cerebellar hemisphere on image 6 of series 2 which is new from comparison. The inferior aspect of this measures up to approximately 2 cm in greatest dimension. The calvarium is intact. The paranasal sinuses, mastoid air cells, and middle ear cavities are clear. IMPRESSION: 1. Ill-defined area of decreased attenuation involving the mid and inferior medial aspect of the right cerebellar hemisphere is suggestive of an acute infarction. 2. No intracranial hemorrhage or midline shift. 3. Age-related involutional changes with advanced chronic microvascular ischemic disease. 4. Remote infarct of the left frontal lobe. Finding were discussed with Dr. Auguste on 06/14/2019 at 10:55 AM. ACT 112: Negative or not required by law. The above report was generated using voice recognition software. It may contain grammatical, syntax or spelling errors. Electronically signed by: Willis Myers M.D. 06/14/2019 10:57 AM Dictated: 06/14/19 1051 Transcribed: 06/14/19 1052 HEAD & NECK CTA HISTORY: Stroke like symptoms. Stroke evaluation TECHNIQUE: Multiaxial CT images of the head were performed following the intravenous administration of contrast to evaluate the major cerebral vessels. Multiaxial CT images of the neck were also performed following the intravenous administration of contrast to evaluate the major cervical vessels. Maximum intensity projection images were also obtained. A dose lowering technique was utilized adhering to the principles of ALARA. COMPARISON: Head CT 06/24/2019. FINDINGS: Ill-defined hypodensities within the right cerebellar hemisphere and right middle cerebellar peduncle may represent acute infarcts. Visualized intracranial internal carotid arteries, distal vertebral arteries, and basilar artery are widely patent. There is no significant stenosis, occlusion, or aneurysm seen within the bilateral ACAs, MCAs, or internet marketing strategist. The major dural venous sinuses are patent. Mild calcified plaque within the distal vertebral arteries and carotid siphons. The aortic arch and proximal great vessels are widely patent. There is no significant stenosis, occlusion, or dissection identified within the bilateral common carotid or internal carotid arteries. Mild right hilar lymphadenopathy the dominant lymph node measuring 12 mm in short axis diameter. There is also 12 mm right infrahilar/subcarinal lymph node. Moderate calcified plaque within the bilateral carotid bifurcations. Mild stenosis at the origin of the bilateral vertebral arteries due to the calcified plaque. IMPRESSION: 1. No significant stenosis, occlusion, or aneurysm within the [place]. 2. No significant stenosis, occlusion, or dissection identified within the carotid arteries. 3. Mild stenosis at the origin of the bilateral vertebral arteries due to the calcified plaque. The remaining bilateral vertebral arteries are patent. 4. Ill-defined hypodensities within the right cerebellar hemisphere and right middle cerebellar peduncle may represent acute infarct. Brain MRI recommended for further evaluation. ACT 112: Negative or not required by law. Electronically signed by: Dwight Lomeli M.D. 06/14/2019 11:17 AM Dictated: 06/14/19 1108 Transcribed: 06/14/19 1108 XR chest 1V portable HISTORY: 89 years-old Male weak acute weakness with strokelike symptoms COMPARISON: Chest radiograph 06/12/2019 TECHNIQUE: Portable AP view of the chest FINDINGS: Cardiac silhouette is enlarged, unchanged. Prior median sternotomy and CABG. Unchanged left subclavian pacer. Mild pulmonary vascular congestion. Chronic interstitial coarsening. No pneumothorax or large pleural effusion, overt pulmonary edema or lobar airspace consolidation. Mild eventration of the right hemidiaphragm. Degenerative changes of the shoulders and spine. Mild left lung b ase opacities suggest probable atelectasis. IMPRESSION: 1. Cardiomegaly with pulmonary vascular congestion. 2. Chronic interstitial coarsening with mild left lung base opacities suggestive of atelectasis. ACT 112: Negative or not required by law. The above report was generated using voice recognition software. It may contain grammatical, syntax or spelling errors. Electronically signed by: Willis Myers M.D. 06/14/2019 11:59 AM Dictated: 06/14/19 1158 Transcribed: 06/14/19 1158 Blood Pressure Blood Pressure Findings: Normal blood pressure Discharge Plan Visit Data *Final* Discharge Date/Time: 06/14/19 12:59 Chief Complaint: Stroke Alert ED Provider: Shaq Rain Discharge Problem: Acute CVA (cerebrovascular accident) Patient Disposition: Admitted As Inpatient Condition: Good Discharge Instructions Interventions: ED Discharge Assessment Last Done: 06/14/19 12:59
[2019-06-14] MEDS ORDERED: OPTIRAY 320 125ml IV PRN (10:57)
--- NOTE | 2019-06-14 10:58 | CT Scan Report ---
CT head/brain wo con CLINICAL HISTORY: 89 years-old Male with Stroke evaluation . Acute strokelike symptoms TECHNIQUE: Multiple axial CT images of the head were obtained without contrast. A dose lowering tech nique was utilized adhering to the principles of ALARA. CT DOSE: 1310.99 mGy.cm COMPARISON: Head CT 06/17/2018, 06/12/2019. FINDINGS: No acute intracranial hemorrhage, midline shift, intracranial mass, hydrocephalus, territorial ischem ia or abnormal extra-axial collection. Age-related involutional changes with ex vacuo ventriculomegal y. Extensive patchy white matter hypodensities redemonstrated suggestive chronic microvascular ischem ic disease. Cerebral vascular calcifications. Mild encephalomalacia of the left frontal lobe from rem ote infarct. Ill-defined area of decreased attenuation with blurring of the pringle-white interface invo lves the mid and inferomedial aspect of the right cerebellar hemisphere on image 6 of series 2 which is new from comparison. The inferior aspect of this measures up to approximately 2 cm in greatest dim ension. The calvarium is intact. The paranasal sinuses, mastoid air cells, and middle ear cavities are clear . IMPRESSION: 1. Ill-defined area of decreased attenuation involving the mid and inferior medial aspect of the righ t cerebellar hemisphere is suggestive of an acute infarction. 2. No intracranial hemorrhage or midline shift. 3. Age-related involutional changes with advanced chronic microvascular ischemic disease. 4. Remote infarct of the left frontal lobe. Finding were discussed with Dr. Auguste on 06/14/2019 at 10:55 AM. ACT 112: Negative or not required by law. The above report was generated using voice recognition software. It may contain grammatical, syntax o r spelling errors. Electronically signed by: Willis Myers M.D. 06/14/2019 10:57 AM
[2019-06-14 11:10] LABS: Basophils # (auto) 0.01 K/uL (0-0.2); Basophils % (auto) 0.2 %; Eosinophils # (auto) 0.19 K/uL (0-0.5); Hematocrit (blood only) 30.6 % (42-52); Hemoglobin 10.7 g/dL (14.0-18.0); Immature Granulocytes # (auto) 0.02 K/uL (0.00-0.02); Immature Granulocytes % (auto) 0.3 %; Lymphocytes # (auto) 1.33 K/uL (1.2-3.4); Mean Corpuscular Hemoglobin 34.6 pg (25-34); Mean Platelet Volume 9.4 fL (7.4-10.4); Monocytes % (auto) 12.7 %; Neutrophils # (auto) 3.97 K/uL (1.4-6.5); Neutrophils % (auto) 62.8 %; Platelet Count 197 K/uL (130-400); RDW Coefficient of Variation 13.2 % (11.5-14.5); RDW Standard Deviation 47.1 fL (36.4-46.3); Red Blood Count 3.09 M/uL (4.7-6.1); White Blood Count 6.32 K/uL (4.8-10.8)
--- NOTE | 2019-06-14 11:19 | CT Scan Report ---
HEAD & NECK CTA HISTORY: Stroke like symptoms. Stroke evaluation TECHNIQUE: Multiaxial CT images of the head were performed following the intravenous administration o f contrast to evaluate the major cerebral vessels. Multiaxial CT images of the neck were also perform ed following the intravenous administration of contrast to evaluate the major cervical vessels. Maxim um intensity projection images were also obtained. A dose lowering technique was utilized adhering to the principles of ALARA. COMPARISON: Head CT 06/24/2019. FINDINGS: Ill-defined hypodensities within the right cerebellar hemisphere and right middle cerebellar peduncle may represent acute infarcts. Visualized intracranial internal carotid arteries, distal vertebral ar teries, and basilar artery are widely patent. There is no significant stenosis, occlusion, or aneurys m seen within the bilateral ACAs, MCAs, or boat mechanic. The major dural venous sinuses are patent. Mild calc ified plaque within the distal vertebral arteries and carotid siphons. The aortic arch and proximal great vessels are widely patent. There is no significant stenosis, occ lusion, or dissection identified within the bilateral common carotid or internal carotid arteries. Mi ld right hilar lymphadenopathy the dominant lymph node measuring 12 mm in short axis diameter. There is also 12 mm right infrahilar/subcarinal lymph node. Moderate calcified plaque within the bilateral carotid bifurcations. Mild stenosis at the origin of the bilateral vertebral arteries due to the calc ified plaque. IMPRESSION: 1. No significant stenosis, occlusion, or aneurysm within the [place]. 2. No significant stenosis, occlusion, or dissection identified within the carotid arteries. 3. Mild stenosis at the origin of the bilateral vertebral arteries due to the calcified plaque. The r emaining bilateral vertebral arteries are patent. 4. Ill-defined hypodensities within the right cerebellar hemisphere and right middle cerebellar pedun giovanna may represent acute infarct. Brain MRI recommended for further evaluation. ACT 112: Negative or not required by law. Electronically signed by: Dwight Lomeli M.D. 06/14/2019 11:17 AM
--- NOTE | 2019-06-14 11:19 | CT Scan Report ---
HEAD & NECK CTA HISTORY: Stroke like symptoms. Stroke evaluation TECHNIQUE: Multiaxial CT images of the head were performed following the intravenous administration o f contrast to evaluate the major cerebral vessels. Multiaxial CT images of the neck were also perform ed following the intravenous administration of contrast to evaluate the major cervical vessels. Maxim um intensity projection images were also obtained. A dose lowering technique was utilized adhering to the principles of ALARA. COMPARISON: Head CT 06/24/2019. FINDINGS: Ill-defined hypodensities within the right cerebellar hemisphere and right middle cerebellar peduncle may represent acute infarcts. Visualized intracranial internal carotid arteries, distal vertebral ar teries, and basilar artery are widely patent. There is no significant stenosis, occlusion, or aneurys m seen within the bilateral ACAs, MCAs, or roofing apprentice. The major dural venous sinuses are patent. Mild calc ified plaque within the distal vertebral arteries and carotid siphons. The aortic arch and proximal great vessels are widely patent. There is no significant stenosis, occ lusion, or dissection identified within the bilateral common carotid or internal carotid arteries. Mi ld right hilar lymphadenopathy the dominant lymph node measuring 12 mm in short axis diameter. There is also 12 mm right infrahilar/subcarinal lymph node. Moderate calcified plaque within the bilateral carotid bifurcations. Mild stenosis at the origin of the bilateral vertebral arteries due to the calc ified plaque. IMPRESSION: 1. No significant stenosis, occlusion, or aneurysm within the [place]. 2. No significant stenosis, occlusion, or dissection identified within the carotid arteries. 3. Mild stenosis at the origin of the bilateral vertebral arteries due to the calcified plaque. The r emaining bilateral vertebral arteries are patent. 4. Ill-defined hypodensities within the right cerebellar hemisphere and right middle cerebellar pedun giovanna may represent acute infarct. Brain MRI recommended for further evaluation. ACT 112: Negative or not required by law. Electronically signed by: Dwight Lomeli M.D. 06/14/2019 11:17 AM
[2019-06-14 11:20] LABS: INR 1.7 (0.9-1.1); Partial Thromboplastin Time 27.1 Seconds (21.0-31.0); Prothrombin Time 17.9 Seconds (9.0-12.0)
[2019-06-14 11:26] LABS: Albumin Level 3.1 gm/dl (3.4-5.0); BUN Creatinine Ratio 15.9 (10-20); Calcium 8.2 mg/dl (8.5-10.1); Creatinine Clr Calc Pharmacy 36.5 ml/min; Est GFR (African American) 50.4; Est GFR (Non-African American) 43.5; Magnesium 2.2 mg/dl (1.8-2.4); Potassium 3.6 mmol/L (3.5-5.1)
[2019-06-14 11:31] LABS: Albumin Globulin Ratio 0.9 (0.9-2); Bilirubin,Total 0.6 mg/dl (0.2-1); Globulin 3.6 gm/dl (2.5-4.0); Total Protein 6.7 gm/dl (6.4-8.2); Troponin I 0.023 ng/ml (0-0.045)
[2019-06-14] MEDS ORDERED: SODIUM CHLORIDE 0.9% 1000ML 500 ML IV ONE (11:54)
--- NOTE | 2019-06-14 12:00 | XRay Report ---
XR chest 1V portable HISTORY: 89 years-old Male weak acute weakness with strokelike symptoms COMPARISON: Chest radiograph 06/12/2019 TECHNIQUE: Portable AP view of the chest FINDINGS: Cardiac silhouette is enlarged, unchanged. Prior median sternotomy and CABG. Unchanged left subclavia n pacer. Mild pulmonary vascular congestion. Chronic interstitial coarsening. No pneumothorax or larg e pleural effusion, overt pulmonary edema or lobar airspace consolidation. Mild eventration of the ri ght hemidiaphragm. Degenerative changes of the shoulders and spine. Mild left lung base opacities sug gest probable atelectasis. IMPRESSION: 1. Cardiomegaly with pulmonary vascular congestion. 2. Chronic interstitial coarsening with mild left lung base opacities suggestive of atelectasis. ACT 112: Negative or not required by law. The above report was generated using voice recognition software. It may contain grammatical, syntax o r spelling errors. Electronically signed by: Willis Myers M.D. 06/14/2019 11:59 AM
[2019-06-14] MEDS ORDERED: DEXTROSE 50% 50 ML SYRINGE IV PRN (13:27)
[2019-06-14] MEDS ORDERED: GLUCOSE 40% GEL 15 GM TUBE PO PRN (13:27)
[2019-06-14] MEDS ORDERED: GLUCOSE 10 TABS/TUBE PO PRN (13:27)
[2019-06-14] MEDS ORDERED: CARBOHYDRATES FOR HYPOGLYCEMIA PO PRN (13:27)
[2019-06-14] MEDS ORDERED: GLUCAGON FOR INJ 1 MG VIAL SQ PRN (13:27)
[2019-06-14] MEDS ORDERED: ACETAMINOPHEN 325 MG TAB PO PRN (13:38)
[2019-06-14] MEDS ORDERED: PHARMACIST DISCHARGE MED REC CONSULT PRN (13:38)
--- NOTE | 2019-06-14 13:44 | History & Physical Report ---
Date of Service June 14, 2019 Assessment & Plan (1) Acute CVA (cerebrovascular accident): -Admit to telemetry -Patient presenting from home with reports of left arm and left hand weakness -In the ED, head CT shows infarction within the right cerebellar hemisphere; head CTA: No significant stenosis, occlusion, or aneurysm within the [place]. No significant stenosis, occlusion, or dissection identified within the carotid arteries. Mild stenosis at the origin of the bilateral vertebral arteries due to the calcified plaque. The remaining bilateral vertebral arteries are patent. -Stroke alert was called however patient was deemed not a TPA candidate secondary to advanced age and current anticoagulation on Coumadin with INR 1.7 -Unable to obtain MRI due to pacemaker - + Orthostatic BPs in ED. Hold home lisinopril, isosorbide, Lasix to ensure SBP > 130 for appropriate perfusion -Patient typically takes aspirin every other day at home, will change to daily. Continue home Coumadin and statin. -Resting echo -Neurology consult (2) TAY (acute kidney injury): -creat 1.4, baseline ~ 1.0 -IVF, hold lisinopril and furosemide (3) Atrial fibrillation: (4) Pacemaker: -pacer interrogation -on Coumadin INR 1.7, continue Coumadin -Continue metoprolol for rate control (5) Coronary artery disease: -Appears stable, no reports of chest pain -Continue aspirin, statin, beta-ashley -Holding isosorbide as above (6) Chronic diastolic (congestive) heart failure: -Appears euvolemic -Holding diuretics secondary to TAY (7) HTN (hypertension): -As above, continuing metoprolol only to allow for permissive hypertension in the setting of acute CVA (8) Diabetes mellitus, type II: -Hgb A1c 9.7 -Hold oral agents and utilize NovoLog protocol hospitalized (9) Hypothyroidism: -Continue levothyroxine (10) BPH (benign prostatic hyperplasia): -Continue terazosin and finasteride (11) DVT prophylaxis: -On Coumadin, INR 1.7 Admission and Anticipated Discharge Date Admission Date: June 14, 2019 History of Present Illness Chief Complaint: Left arm and hand weakness Primary Care Provider: Ty Mosqueda DO 89-year-old male with PMH DM type II, CAD, chronic diastolic CHF, tachybrady s/p pacer, afib on Coumadin, who presents to the ED with complaints of left arm and hand weakness. Patient was recently admitted to [facility] 06/11 to 06/12 for bilateral lower extremity weakness and gait instability. Symptoms were felt to be secondary to mild orthostatic hypotension, therefore Lasix was decreased from alternating doses of 60 mg and 80 mg to 40 mg daily. Patient reports he felt well since returning home. This morning around 930, he developed left upper extremity and left hand weakness. Patient then presented to the ED for further evaluation. Patient denies any associated facial droop, slurred speech, difficulty speaking or understanding. No other unilateral weakness, numbness, tingling. Denies lightheadedness, dizziness, diaphoresis, syncopal events. Denies chest pain shortness of breath. No abdominal pain, nausea, vomiting, diarrhea. No fevers or chills. Denies any urinary symptoms. In the ED, stroke alert was called however patient was not felt to be a TPA candidate secondary to advanced age and currently being anticoagulated Coumadin. Head CT shows an acute infarction in the right cerebellar hemisphere. Patient is hemodynamically stable. Labs show a mildly elevated creatinine at 1.4, otherwise unremarkable. Patient was given IVF. Allergies Allergy/AdvReac Type Severity Reaction Status Date / Time [id number]-Vwq Reductase Allergy Unknown Leg Verified 06/14/19 12:34 Inhibitor weakness and pain Home Medications Home Medications Medication Instructions Recorded Confirmed Type finasteride 5 mg PO HS 06/17/18 06/14/19 History levothyroxine 50 mcg PO QAM 06/17/18 06/14/19 History metoprolol succinate 100 mg PO PM 06/17/18 06/14/19 History multivitamin 1 tab PO Q OTHER DAY 06/17/18 06/14/19 History terazosin 10 mg PO HS 06/17/18 06/14/19 History warfarin 2.5 mg PO SUTUWETHSA 06/17/18 06/14/19 History warfarin 5 mg PO MOFR 06/17/18 06/14/19 History aspirin 81 mg PO Q OTHER DAY 03/27/19 06/14/19 History isosorbide mononitrate 30 mg PO DAILY 03/27/19 06/14/19 History simvastatin 5 mg PO HS 03/27/19 06/14/19 History lisinopril 10 mg PO DAILY 06/03/19 06/14/19 History metformin 500 mg PO BID 06/12/19 06/14/19 History furosemide 40 mg PO DAILY #30 tab 06/13/19 06/14/19 Rx cholecalciferol (vitamin D3) 400 unit PO DAILY 06/14/19 06/14/19 History [Vitamin D3] cyanocobalamin (vitamin B-12) 1,000 mcg PO DAILY 06/14/19 06/14/19 History [Vitamin B-12] meclizine 12.5 mg PO TID PRN 06/14/19 06/14/19 History 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) Basal cell carcinoma of scalp (Resolved 11/29/11) Basal cell carcinoma of skin (Resolved 11/29/11) Bladder cancer (Resolved) BPH (benign prostatic hyperplasia) Chronic anticoagulation (Inactive) Chronic diastolic (congestive) heart failure Coronary artery disease Diabetes mellitus, type II History of cataract HTN (hypertension) Hypothyroidism Pacemaker Tachy-eula syndrome TIA (transient ischemic attack) Surgical History History of bladder surgery History of tonsillectomy and adenoidectomy S/P CABG x 2 1990 Family History Father Coronary heart disease Social History Preferred Language: Chadian Communication Ability: Effective Pressed Or Blown 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 Rocha's addendum for physical exam. Results & Data Results & Data ([facility]) Vital Signs (Past 12 Hours) Vital Signs Pulse Pulse Resp BP BP Pulse Ox 06/14/19 12:58 60 16 122/76 97 06/14/19 12:45 60 23 137/63 96 06/14/19 12:31 60 18 110/71 97 06/14/19 12:15 61 21 118/65 96 06/14/19 12:00 68 18 130/59 L 96 06/14/19 11:37 60 16 138/68 95 06/14/19 11:33 64 16 125/72 96 06/14/19 11:14 64 16 131/81 97 06/14/19 10:40 68 18 154/71 H 98 Laboratory Results Short CBC 06/14/19 Range/Units 10:55 WBC 6.32 (4.8-10.8) K/uL Hgb 10.7 L (14.0-18.0) g/dL Hct 30.6 L (42-52) % Plt Count 197 (130-400) K/uL BMP 06/14/19 10:55 Sodium 135 L Potassium 3.6 Chloride 102 Carbon Dioxide 26 BUN 23 H Creatinine 1.42 H D Glucose 161 H Calcium 8.2 L Cardiac Enzymes 06/14/19 Range/Units 10:55 Troponin I 0.023 (0-0.045) ng/ml Liver Function 06/14/19 Range/Units 10:55 Total Bilirubin 0.6 (0.2-1) mg/dl AST 17 (15-37) U/L ALT 19 (12-78) U/L Alkaline Phosphatase 57 (45-117) U/L Albumin 3.1 L (3.4-5.0) gm/dl Diagnostic Findings CXR IMPRESSION: 1. Cardiomegaly with pulmonary vascular congestion. 2. Chronic interstitial coarsening with mild left lung base opacities suggestive of atelectasis. HEAD/NECK CTA IMPRESSION: 1. No significant stenosis, occlusion, or aneurysm within the [place]. 2. No significant stenosis, occlusion, or dissection identified within the carotid arteries. 3. Mild stenosis at the origin of the bilateral vertebral arteries due to the calcified plaque. The remaining bilateral vertebral arteries are patent. 4. Ill-defined hypodensities within the right cerebellar hemisphere and right middle cerebellar peduncle may represent acute infarct. Brain MRI recommended for further evaluation. HEAD CT IMPRESSION: 1. Ill-defined area of decreased attenuation involving the mid and inferior medial aspect of the right cerebellar hemisphere is suggestive of an acute infarction. 2. No intracranial hemorrhage or midline shift. 3. Age-related involutional changes with advanced chronic microvascular ischemic disease. 4. Remote infarct of the left frontal lobe. Code Status & VTE Plan Code Status Patient is a full code as per my discussion with him. VTE Prophylaxis Plan VTE Prophylaxis will be ordered: No Supervising Physician Co-Signing Physician Notes ROS-No Headache, No Visual Changes, No Nausea, No Vomiting, No Fever, No Chills, No Neck Pain or Stiffness, No Chest Pain, No Palpitations, No SOB, No HUSAIN, No C ough, No Sputum, No Wheezing, No Abdominal Pain, No Diarrhea, No Hematemesis, No Hemoptysis, No Unexpected Weight Loss, No Flank pain, No Melena, No Hematochezia, No Frequency, No Urgency, No Burning, No Hematuria, No Rashes, No Diaphoresis. Appetite is Normal, LUE weakness Physical Exam Gen-AAO x 3, NAD, Afebrile Head-NCAT, EOMI, PERRLA, Anicteric Sclera, No Posterior Pharyngeal Erythema Neck-Supple, No JVD, No Thyromegaly, No Masses, No LAD, No Bruits Lungs-Clear to Auscultation Bilaterally, No Rales, No Rhonchi, No Wheezing, No Crepitus Chest-No S4, +S1, +S2, No S3, No Murmurs, No Rubs, No Gallops, No Ectopy Abdomen-Soft, Bowel Sounds Present, Non Tender, Non Distended, No Hepatomegaly, No Splenomegaly, No Palpable Masses, No Rebound, No Rigidity, No Guarding Musculoskeletal-Full Range of Motion Bilaterally, No CVAT Extremities-No Cyanosis, No Clubbing, No Edema Nuero-Cranial Nerves II-XII grossly intact, LUE Weakness Psych-Normal Mood
[2019-06-14] MEDS: SODIUM CHLORIDE 0.9% 1000ML 1,000 ML IV SCH ×2 (13:57→22:58)
[2019-06-14 14:39] LABS: Estimated Average Glucose 160 mg/dl; Hemoglobin A1C 7.2 % (4.5-5.6)
--- NOTE | 2019-06-14 14:48 | Communication Note ---
Date of Service: June 13 have reviewed the current chart discussed the case with Evangelina bullock who admitted this man to the hospital, I reviewed the notes from his admission on 06/11 and his discharge summary on 06/12, emergency room notes from the same dates more , and all imaging studies including 2 CT scans of his brain first done on 06/11 and the second today and CT angiographic studies of the cervical and intracranial vessels along with his laboratory studies. This is an elderly man with congestive heart failure chronic atrial fibrillation who has a pacemaker and was admitted 2 days ago for bilateral lower extremity weakness felt to be due orthostatic hypotension. He now presents with left arm and leg weakness which is improving and on CT scan there appears to be a very subtle area in the right cerebellar hemisphere that could be an infarction, could be artifact, and does not explain the symptoms very well. The cerebellar peduncle and brainstem itself are not well seen and I do not see any significant difference between the 2 studies but certainly a small vessel event in the brainstem on the right with some transient ischemia bilaterally several days ago might explain the current set of symptoms That having been said he is on Coumadin with a low inr the aspirin is been raised to every day 81 mg and I have suggested that he get another CT scan of the brain tomorrow after which I come in and evalute him and see if we find any clear evidence for a completed cerebrovascular event and if so where it might be located i.e. posterior circulation or more likely with the current complaints gait in the right hemisphere at the capsular level Irving Reddy MD
[2019-06-14] MEDS ORDERED: PERFLUTREN LIPID MICROSPHERE (DEFINITY) IV ONE (15:22)
[2019-06-14] MEDS: ASPIRIN 81 MG ECTAB PO SCH (15:24)
[2019-06-14] MEDS: MULTIVITAMIN TAB PO SCH (15:24)
--- NOTE | 2019-06-14 15:34 | Electrocardiogram Report ---
Test Reason : Blood Pressure : / mmHG Vent. Rate : 069 BPM Atrial Rate : 081 BPM P-R Int : 000 ms QRS Dur : 202 ms QT Int : 496 ms P-R-T Axes : 000 -52 115 degrees QTc Int : 531 ms Ventricular-paced rhythm Abnormal ECG When compared with ECG of 12-JUN-2019 11:26, No significant change was found Confirmed by Shaq Grant ([id number]) on 06/14/2019 3:34:24 PM Referred By: REFERRED SELF Confirmed By:Shaq Grant
[2019-06-14] MEDS ORDERED: WARFARIN SOD 5 MG TAB PO SCH (16:00)
[2019-06-14] MEDS: INSULIN ASPART 100 UNITS/ML 3 ML PEN SC SCH ×2 (17:15→20:30)
[2019-06-14] MEDS: METOPROLOL SUCC 50MG EXT REL TAB PO SCH (20:43)
[2019-06-14] MEDS: FINASTERIDE 5 MG TAB PO SCH (20:44)
[2019-06-14] MEDS: TERAZOSIN HCL 5 MG CAP PO SCH (20:44)
[2019-06-14] MEDS: SIMVASTATIN 5 MG TAB PO SCH (20:44)
[2019-06-15] MEDS: LEVOTHYROXINE SODIUM 50 MCG TABLET PO SCH (05:34)
[2019-06-15 07:04] LABS: Basophils # (auto) 0.01 K/uL (0-0.2); Basophils % (auto) 0.2 %; Eosinophils # (auto) 0.19 K/uL (0-0.5); Eosinophils % (auto) 3.1 %; Hematocrit (blood only) 31.6 % (42-52); Hemoglobin 10.8 g/dL (14.0-18.0); Immature Granulocytes # (auto) 0.01 K/uL (0.00-0.02); Immature Granulocytes % (auto) 0.2 %; Lymphocytes # (auto) 1.21 K/uL (1.2-3.4); Lymphocytes % (auto) 19.6 %; Mean Corpuscular Hemoglobin 33.4 pg (25-34); Mean Corpuscular Hgb Conc 34.2 g/dL (32-36); Mean Corpuscular Volume 97.8 fL (80-100); Mean Platelet Volume 10.1 fL (7.4-10.4); Monocytes # (auto) 0.67 K/uL (0.11-0.59); Monocytes % (auto) 10.9 %; Neutrophils # (auto) 4.07 K/uL (1.4-6.5); Platelet Count 186 K/uL (130-400); RDW Coefficient of Variation 13.1 % (11.5-14.5); RDW Standard Deviation 46.8 fL (36.4-46.3); Red Blood Count 3.23 M/uL (4.7-6.1); White Blood Count 6.16 K/uL (4.8-10.8)
[2019-06-15 07:14] LABS: INR 1.8 (0.9-1.1); Prothrombin Time 18.2 Seconds (9.0-12.0)
--- NOTE | 2019-06-15 07:36 | Hospitalist Progress Note ---
Date of Service June 15, 2019 Assessment & Plan (1) Acute CVA (cerebrovascular accident): -Patient presenting from home with reports of left arm and left hand weakness -In the ED, head CT shows infarction within the right cerebellar hemisphere; head CTA: No significant stenosis, occlusion, or aneurysm within the [place]. No significant stenosis, occlusion, or dissection identified within the carotid arteries. Mild stenosis at the origin of the bilateral vertebral arteries due to the calcified plaque. The remaining bilateral vertebral arteries are patent. -Stroke alert was called however patient was deemed not a TPA candidate secondary to advanced age and current anticoagulation on Coumadin with INR 1.7 -Unable to obtain MRI due to pacemaker - + Orthostatic BPs in ED. Hold home lisinopril, isosorbide, Lasix to ensure SBP > 130 for appropriate perfusion -Patient typically takes aspirin every other day at home, will change to daily. Continue home Coumadin and statin. -Resting echo -Neurology to see (2) TAY (acute kidney injury): -creat 1.4, baseline ~ 1.0 -IVF, hold lisinopril and furosemide (3) Atrial fibrillation: (4) Pacemaker: -pacer interrogation -on Coumadin INR 1.7, continue Coumadin -Continue metoprolol for rate control (5) Coronary artery disease: -Appears stable, no reports of chest pain -Continue aspirin, statin, beta-ashley -Holding isosorbide as above (6) Chronic diastolic (congestive) heart failure: -Appears euvolemic -Holding diuretics secondary to TAY (7) HTN (hypertension): -As above, continuing metoprolol only to allow for permissive hypertension in the setting of acute CVA (8) Diabetes mellitus, type II: -Hgb A1c 9.7 -Hold oral agents and utilize NovoLog protocol hospitalized (9) Hypothyroidism: -Continue levothyroxine (10) BPH (benign prostatic hyperplasia): -Continue terazosin and finasteride (11) DVT prophylaxis: -On Coumadin Labs checked ROS-No Headache, No Visual Changes, No Nausea, No Vomiting, No Fever, No Chills, No Neck Pain or Stiffness, No Chest Pain, No Palpitations, No SOB, No HUSAIN, No Cough, No Sputum, No Wheezing, No Abdominal Pain, No Diarrhea, No Hematemesis, No Hemoptysis, No Unexpected Weight Loss, No Flank pain, No Melena, No Hematochezia, No Frequency, No Urgency, No Burning, No Hematuria, No Rashes, No Diaphoresis. Appetite is Normal, weak LUE Physical Exam Gen-AAO x 3, NAD, Afebrile Head-NCAT, EOMI, PERRLA, Anicteric Sclera, No Posterior Pharyngeal Erythema Neck-Supple, No JVD, No Thyromegaly, No Masses, No LAD, No Bruits Lungs-Clear to Auscultation Bilaterally, No Rales, No Rhonchi, No Wheezing, No Crepitus Chest-No S4, +S1, +S2, No S3, No Murmurs, No Rubs, No Gallops, No Ectopy Abdomen-Soft, Bowel Sounds Present, Non Tender, Non Distended, No Hepatomegaly, No Splenomegaly, No Palpable Masses, No Rebound, No Rigidity, No Guarding Musculoskeletal-Full Range of Motion Bilaterally, No CVAT Extremities-No Cyanosis, No Clubbing, No Edema Nuero-Cranial Nerves II-XII grossly intact, Weak LUE Psych-Normal Mood Admission and Anticipated Discharge Date Admission Date: June 14, 2019 Anticipated date of discharge: 06/17/19 Results & Data Results & Data ([facility]) Vital Signs (Past 12 Hours) Vital Signs Temp Pulse Pulse Resp BP Pulse Ox 06/15/19 07:12 36.8 C 77 20 196/74 H 96 06/15/19 03:46 36.8 C 68 20 161/80 H 94 06/15/19 00:05 37.1 C 72 18 156/83 H 92 06/14/19 23:40 60 06/14/19 19:39 36.9 C 64 18 167/77 H 96
[2019-06-15 07:37] LABS: Calcium 8.4 mg/dl (8.5-10.1); Creatinine Clr Calc Pharmacy 43.2 ml/min; Est GFR (Non-African American) 56.1; Potassium 3.7 mmol/L (3.5-5.1)
[2019-06-15] MEDS: INSULIN ASPART 100 UNITS/ML 3 ML PEN SC SCH ×4 (08:03→20:56)
[2019-06-15] MEDS: CYANOCOBALAMIN 500 MCG TABLET (VITAMIN B-12) PO SCH (08:04)
[2019-06-15] MEDS: ASPIRIN 81 MG ECTAB PO SCH (08:04)
[2019-06-15] MEDS: CHOLECALCIFEROL (VITAMIN D) 400 UNITS TABLET PO SCH (08:04)
[2019-06-15] MEDS: SODIUM CHLORIDE 0.9% 1000ML 1,000 ML IV SCH ×2 (08:04→18:24)
--- NOTE | 2019-06-15 09:47 | CT Scan Report ---
CT head/brain wo con CLINICAL HISTORY: Acute stroke COMPARISON STUDY: CT scan dated 06/14/2019 TECHNIQUE: Axial CT of the brain is performed from the vertex to the skull base. IV contrast was not administered for this examination. A dose lowering technique was utilized adhering to the principles of ALARA. CT DOSE: 614.27 mGy.cm FINDINGS: No intra or extra-axial mass lesions are visualized. There is no CT evidence of acute cortical infarc tion. There is no evidence of midline shift. There is no acute hemorrhage. No calvarial fractures ar e visualized. There are patchy white matter hypodensities likely on a small vessel basis. There is an old left fron kylah infarct. There is an age-indeterminate right cerebellar infarct. There is no evidence of pathologic ventricular dilatation. There is no evidence of acute sinusitis IMPRESSION: 1. No evidence of acute hemorrhage 2. Age-indeterminate right cerebellar infarct 3. Old left frontal infarct 4. Extensive white matter disease likely on a small vessel ischemic basis ACT 112: Negative or not required by law. Electronically signed by: Hiram Anaya M.D. 06/15/2019 9:46 AM
--- NOTE | 2019-06-15 10:27 | Communication Note ---
Date of Service: June 15, 2019 I saw Mr. Wood today in official consultation reviewed his chart and his recent CT scan and did a brief neurologic examination within the restrictions imposed by the COVID-19 situation He does have chronic atrial fibrillation had an event several days ago during which both lower extremities appeared to be weak, his INR was subtherapeutic he was evaluated and subsequently discharged with no neurologic deficits but then presented with the relatively abrupt onset of a left hemiparesis occurring in the setting of a prior similar event several years ago of presumptive embolic origin when his INR was also subtherapeutic. Sequential CT scans have really demonstrated nothing other than an age- indeterminate right cerebellar infarct which would not explain his current symptoms His other medical problems are outlined on the chart and will not be reviewed in further detail here He has been on Coumadin and theoretically was taking aspirin 81 mg every other day On exam today he is quite bright active alert oriented in 3 spheres might have some slight dysarthria speech and a very subtle left upper motor neuron facial asymmetry and has a modest paresis of the left arm and a minor paresis of the left leg with slightly reduced facility in the latter, an upgoing toe, brisk reflexes and a prominent drift of the left arm with significant loss of facility of rapid repetitive motions but with no real sensory loss or sensory neglect. 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 I do not think this was a brainstem event as there are absolutely no signs to suggest an extraocular dysmotility or limitation and there is no evidence for significant dysarthria or dysphasia The issue is to a large degree academic. His INR needs to get back into a more therapeutic range and is still down at 1.8 and I would add aspirin at least daily until the INR reaches its target zone and is maintained there He in my opinion is likely going to need to stay at [facility] or an equivalent facility and social service needs to take a look at this and I believe regan boss are already underway From a neurologic point of view we could take a look at him in about 4 to 6 weeks as this is part of the standard post stroke protocol but otherwise I have no further suggestions as a diagnostic work-up has been very complete including analysis of the extracranial and intracranial circulation with appropriate CT angiographic studies and he has had sequential CTs now which do not demonstrate any evidence for hemorrhagic transformation of the presumptive infarction in the deep right frontal area I am going to sign off the case at this time but would be happy to reevaluate him either by computer or by direct visit if anything changes during his current hospital stay Irving Reddy MD
[2019-06-15] MEDS: WARFARIN SOD 2.5 MG TAB PO SCH (16:53)
[2019-06-15] MEDS: TERAZOSIN HCL 5 MG CAP PO SCH (20:23)
[2019-06-15] MEDS: METOPROLOL SUCC 50MG EXT REL TAB PO SCH (20:23)
[2019-06-15] MEDS: SIMVASTATIN 5 MG TAB PO SCH (20:23)
[2019-06-15] MEDS: FINASTERIDE 5 MG TAB PO SCH (20:23)
[2019-06-16] MEDS: SODIUM CHLORIDE 0.9% 1000ML 1,000 ML IV SCH ×3 (04:30→23:29)
[2019-06-16] MEDS: LEVOTHYROXINE SODIUM 50 MCG TABLET PO SCH (05:31)
--- NOTE | 2019-06-16 06:51 | Hospitalist Progress Note ---
Date of Service June 16, 2019 Assessment & Plan (1) Acute CVA (cerebrovascular accident): -Patient presenting from home with reports of left arm and left hand weakness -In the ED, head CT shows infarction within the right cerebellar hemisphere; head CTA: No significant stenosis, occlusion, or aneurysm within the ruby of Chang. No significant stenosis, occlusion, or dissection identified within the carotid arteries. Mild stenosis at the origin of the bilateral vertebral arteries due to the calcified plaque. The remaining bilateral vertebral arteries are patent. -Stroke alert was called however patient was deemed not a TPA candidate secondary to advanced age and current anticoagulation on Coumadin with INR 1.7 -Unable to obtain MRI due to pacemaker - + Orthostatic BPs in ED. Hold home lisinopril, isosorbide, Lasix to ensure SBP > 130 for appropriate perfusion -Patient typically takes aspirin every other day at home, will change to daily. Continue home Coumadin and statin. -Resting echo -Neurologyon case -ARF Monday-LUE function Improving (2) TAY (acute kidney injury): -creat 1.4, baseline ~ 1.0 -IVF, hold lisinopril and furosemide (3) Atrial fibrillation: (4) Pacemaker: -pacer interrogation -Continue metoprolol for rate control (5) Coronary artery disease: -Appears stable, no reports of chest pain -Continue aspirin, statin, beta-ashlye -Holding isosorbide as above (6) Chronic diastolic (congestive) heart failure: -Appears euvolemic -Holding diuretics secondary to TAY (7) HTN (hypertension): -As above, continuing metoprolol only to allow for permissive hypertension in the setting of acute CVA (8) Diabetes mellitus, type II: -Hgb A1c 9.7 -Hold oral agents and utilize NovoLog protocol hospitalized (9) Hypothyroidism: -Continue levothyroxine (10) BPH (benign prostatic hyperplasia): -Continue terazosin and finasteride (11) DVT prophylaxis: -On Coumadin Labs checked ROS-No Headache, No Visual Changes, No Nausea, No Vomiting, No Fever, No Chills, No Neck Pain or Stiffness, No Chest Pain, No Palpitations, No SOB, No HUSAIN, No Co ugh, No Sputum, No Wheezing, No Abdominal Pain, No Diarrhea, No Hematemesis, No Hemoptysis, No Unexpected Weight Loss, No Flank pain, No Melena, No Hematochezia, No Frequency, No Urgency, No Burning, No Hematuria, No Rashes, No Diaphoresis. Appetite is Normal, weak LUE Physical Exam Gen-AAO x 3, NAD, Afebrile Head-NCAT, EOMI, PERRLA, Anicteric Sclera, No Posterior Pharyngeal Erythema Neck-Supple, No JVD, No Thyromegaly, No Masses, No LAD, No Bruits Lungs-Clear to Auscultation Bilaterally, No Rales, No Rhonchi, No Wheezing, No Crepitus Chest-No S4, +S1, +S2, No S3, No Murmurs, No Rubs, No Gallops, No Ectopy Abdomen-Soft, Bowel Sounds Present, Non Tender, Non Distended, No Hepatomegaly, No Splenomegaly, No Palpable Masses, No Rebound, No Rigidity, No Guarding Musculoskeletal-Full Range of Motion Bilaterally, No CVAT Extremities-No Cyanosis, No Clubbing, No Edema Nuero-Cranial Nerves II-XII grossly intact, Weak LUE, but improving Psych-Normal Mood Admission and Anticipated Discharge Date Admission Date: June 14, 2019 Anticipated date of discharge: 06/17/19 Results & Data Results & Data ([facility]) Vital Signs (Past 12 Hours) Vital Signs Temp Pulse Pulse Resp BP Pulse Ox 06/16/19 04:03 36.8 C 66 22 165/76 H 94 06/16/19 01:00 37.0 C 68 18 137/70 96 06/15/19 23:28 36.3 C L 63 28 H 146/77 H 97 06/15/19 19:36 36.8 C 65 18 160/81 H 98
[2019-06-16] MEDS ORDERED: bisacodyL 10 MG SUPP PR PRN (07:15)
[2019-06-16 08:00] LABS: Basophils # (auto) 0.01 K/uL (0-0.2); Basophils % (auto) 0.2 %; Eosinophils # (auto) 0.17 K/uL (0-0.5); Eosinophils % (auto) 2.8 %; Hematocrit (blood only) 30.9 % (42-52); Hemoglobin 10.5 g/dL (14.0-18.0); Immature Granulocytes # (auto) 0.01 K/uL (0.00-0.02); Immature Granulocytes % (auto) 0.2 %; Lymphocytes # (auto) 0.77 K/uL (1.2-3.4); Lymphocytes % (auto) 12.8 %; Mean Corpuscular Hemoglobin 33.2 pg (25-34); Mean Corpuscular Volume 97.8 fL (80-100); Mean Platelet Volume 10.3 fL (7.4-10.4); Monocytes # (auto) 0.52 K/uL (0.11-0.59); Monocytes % (auto) 8.7 %; Neutrophils # (auto) 4.52 K/uL (1.4-6.5); Neutrophils % (auto) 75.3 %; Platelet Count 190 K/uL (130-400); RDW Coefficient of Variation 13.1 % (11.5-14.5); Red Blood Count 3.16 M/uL (4.7-6.1)
[2019-06-16] MEDS: ASPIRIN 81 MG ECTAB PO SCH (08:05)
[2019-06-16] MEDS: CHOLECALCIFEROL (VITAMIN D) 400 UNITS TABLET PO SCH (08:05)
[2019-06-16] MEDS: MULTIVITAMIN TAB PO SCH (08:05)
[2019-06-16] MEDS: CYANOCOBALAMIN 500 MCG TABLET (VITAMIN B-12) PO SCH (08:05)
[2019-06-16] MEDS: FUROSEMIDE 40 MG TAB PO SCH (08:05)
[2019-06-16] MEDS: POLYETHYLENE (MIRALAX) 17 GM PACK PO SCH ×2 (08:05→20:20)
[2019-06-16 08:09] LABS: INR 2.2 (0.9-1.1); Prothrombin Time 22.5 Seconds (9.0-12.0)
[2019-06-16] MEDS: INSULIN ASPART 100 UNITS/ML 3 ML PEN SC SCH ×4 (08:09→20:24)
[2019-06-16 08:58] LABS: BUN Creatinine Ratio 14.3 (10-20); Calcium 8.3 mg/dl (8.5-10.1); Creatinine Clr Calc Pharmacy 55.2 ml/min; Est GFR (African American) 87.5; Est GFR (Non-African American) 75.5; Potassium 3.7 mmol/L (3.5-5.1)
[2019-06-16] MEDS: WARFARIN SOD 2.5 MG TAB PO SCH (15:43)
[2019-06-16] MEDS: TERAZOSIN HCL 5 MG CAP PO SCH (20:19)
[2019-06-16] MEDS: SIMVASTATIN 5 MG TAB PO SCH (20:21)
[2019-06-16] MEDS: METOPROLOL SUCC 50MG EXT REL TAB PO SCH (20:21)
[2019-06-16] MEDS: FINASTERIDE 5 MG TAB PO SCH (20:23)
[2019-06-16] MEDS: POTASSIUM CHLORIDE 20 MEQ TABCR PO SCH (20:28)
[2019-06-17] MEDS: LEVOTHYROXINE SODIUM 50 MCG TABLET PO SCH (06:28)
[2019-06-17 06:49] LABS: Basophils # (auto) 0.01 K/uL (0-0.2); Basophils % (auto) 0.2 %; Eosinophils # (auto) 0.17 K/uL (0-0.5); Eosinophils % (auto) 2.8 %; Hemoglobin 10.4 g/dL (14.0-18.0); Immature Granulocytes # (auto) 0.01 K/uL (0.00-0.02); Immature Granulocytes % (auto) 0.2 %; Lymphocytes # (auto) 1.01 K/uL (1.2-3.4); Lymphocytes % (auto) 16.4 %; Mean Corpuscular Hemoglobin 33.8 pg (25-34); Mean Corpuscular Hgb Conc 34.7 g/dL (32-36); Mean Corpuscular Volume 97.4 fL (80-100); Mean Platelet Volume 10.1 fL (7.4-10.4); Monocytes # (auto) 0.51 K/uL (0.11-0.59); Monocytes % (auto) 8.3 %; Neutrophils # (auto) 4.44 K/uL (1.4-6.5); Neutrophils % (auto) 72.1 %; Platelet Count 189 K/uL (130-400); RDW Coefficient of Variation 13.2 % (11.5-14.5); RDW Standard Deviation 46.8 fL (36.4-46.3); Red Blood Count 3.08 M/uL (4.7-6.1); White Blood Count 6.15 K/uL (4.8-10.8)
[2019-06-17 06:59] LABS: INR 2.4 (0.9-1.1); Prothrombin Time 24.6 Seconds (9.0-12.0)
--- NOTE | 2019-06-17 07:04 | Discharge Summary ---
Date of Service June 17, 2019 Admission HPI Per Admitting Provider 89-year-old male with PMH DM type II, CAD, chronic diastolic CHF, tachybrady s/p pacer, afib on Coumadin, who presents to the ED with complaints of left arm and hand weakness. Patient was recently admitted to [facility] 06/11 to 06/12 for bilateral lower extremity weakness and gait instability. Symptoms were felt to be secondary to mild orthostatic hypotension, therefore Lasix was decreased from alternating doses of 60 mg and 80 mg to 40 mg daily. Patient reports he felt well since returning home. This morning around 930, he developed left upper extremity and left hand weakness. Patient then presented to the ED for further evaluation. Patient denies any associated facial droop, slurred speech, difficulty speaking or understanding. No other unilateral weakness, numbness, tingling. Denies lightheadedness, dizziness, diaphoresis, syncopal events. Denies chest pain shortness of breath. No abdominal pain, nausea, vomiting, diarrhea. No fevers or chills. Denies any urinary symptoms. In the ED, stroke alert was called however patient was not felt to be a TPA candidate secondary to advanced age and currently being anticoagulated Coumadin. Head CT shows an acute infarction in the right cerebellar hemisphere. Patient is hemodynamically stable. Labs show a mildly elevated creatinine at 1.4, otherwise unremarkable. Patient was given IVF. Admission Exam Per Admitting Provider Gen-AAO x 3, NAD, Afebrile Head-NCAT, EOMI, PERRLA, Anicteric Sclera, No Posterior Pharyngeal Erythema Neck-Supple, No JVD, No Thyromegaly, No Masses, No LAD, No Bruits Lungs-Clear to Auscultation Bilaterally, No Rales, No Rhonchi, No Wheezing, No Crepitus Chest-No S4, +S1, +S2, No S3, No Murmurs, No Rubs, No Gallops, No Ectopy Abdomen-Soft, Bowel Sounds Present, Non Tender, Non Distended, No Hepatomegaly, No Splenomegaly, No Palpable Masses, No Rebound, No Rigidity, No Guarding Musculoskeletal-Full Range of Motion Bilaterally, No CVAT Extremities-No Cyanosis, No Clubbing, No Edema Nuero-Cranial Nerves II-XII grossly intact, LUE Weakness Psych-Normal Mood Principal Diagnosis Acute CVA (cerebrovascular accident): TAY Atrial fibrillation: NSVT Pacemaker: Coronary artery disease: Chronic diastolic (congestive) heart failure: HTN Diabetes mellitus, type II: Hypothyroidism: BPH (benign prostatic hyperplasia): Discharge Data Allergies Allergy/AdvReac Type Severity Reaction Status Date / Time Nkeqcvy-Yqk-Gfi Reductase Allergy Unknown Leg Verified 06/14/19 12:34 Inhibitor weakness and pain Consultations 06/14/19 11:45 ED Decision to Admit Stat 06/14/19 13:38 Consult Case Management - Discharge Planning Routine Consult Neurology Routine 06/16/19 06:58 Consult Case Management - Discharge Planning Routine 06/16/19 14:42 Consult Cardiology Routine Ordered Studies 06/14/19 10:30 CT angio head w con Stat CT angio neck with con Stat CT head/brain wo con Stat 06/15/19 08:00 CT head/brain wo con DAILY Hospital Course (1) Acute CVA (cerebrovascular accident): -Patient presenting from home with reports of left arm and left hand weakness -In the ED, head CT shows infarction within the right cerebellar hemisphere; head CTA: No significant stenosis, occlusion, or aneurysm within the jackson of Chang. No significant stenosis, occlusion, or dissection identified within the carotid arteries. Mild stenosis at the origin of the bilateral vertebral arteries due to the calcified plaque. The remaining bilateral vertebral arteries are patent. -Stroke alert was called however patient was deemed not a TPA candidate secondary to advanced age and current anticoagulation on Coumadin with INR 1.7 -Unable to obtain MRI due to pacemaker - + Orthostatic BPs in ED. Hold home lisinopril, isosorbide, Lasix to ensure SBP > 130 for appropriate perfusion -Patient typically takes aspirin every other day at home, will change to daily. Continue home Coumadin and statin. -Resting echo -Neurologyon case -ARF Monday-LUE function Improving (2) TAY (acute kidney injury): resolved (3) Atrial fibrillation: (4) Pacemaker: -pacer interrogation -Continue metoprolol for rate control (5) Coronary artery disease: -Appears stable, no reports of chest pain -Continue aspirin, statin, beta-ashley -Holding isosorbide as above (6) Chronic diastolic (congestive) heart failure: -Appears euvolemic -Holding diuretics secondary to TAY (7) HTN (hypertension): -As above, continuing metoprolol only to allow for permissive hypertension in the setting of acute CVA (8) Diabetes mellitus, type II: -Hgb A1c 9.7 -Hold oral agents and utilize NovoLog protocol hospitalized (9) Hypothyroidism: -Continue levothyroxine (10) BPH (benign prostatic hyperplasia): -Continue terazosin and finasteride (11) DVT prophylaxis: -On Coumadin Total Time Total Time Spent Total Time Spent (In Minutes): 45 mins Total Time Includes: Examination of the Patient, Discharge Planning, Medication Reconciliation and Communication With Other Providers Discharge Plan Discharge Items Patient Disposition: Transfer Inpatient Rehab Fac Reason For Visit: CVA Discharge Diagnosis: Acute CVA (cerebrovascular accident): TAY Atrial fibrillation: NSVT Pacemaker: Coronary artery disease: Chronic diastolic (congestive) heart failure: HTN Diabetes mellitus, type II: Hypothyroidism: BPH (benign prostatic hyperplasia): Condition on Discharge: Good Activity: Resume your previous activity Lifting: Gradually increase as tolerated Bathing: No limitations Sexual Activity: When tolerated Exercise/Sports: Gradually increase as tolerated Driving/Machine Use: none Weightbearing: Full weightbearing Non-emergency contact: Primary Care Provider and Neurologist Call non-emergency contact if: you have any medication questions Follow-up/Referrals: Irving Reddy MD [Physician] - Ty Mosqueda DO [Primary Care Provider] - Diet: Heart Healthy Addtl Attending Provider Instructions: none Pending Studies at Discharge: Yes Studies:: Cards eval Stand-Alone Forms: Q.ME Skilled Items Patient informed of condition?: Yes DNR: No Discharge Level of Care: Acute rehab Communicable Disease: No Discharge Prognosis: Improving Lines: None Urinary Catheter: No Medications and DC Order Prescriptions: New potassium chloride [Klor-Con M20] 20 mEq Tablet,Er Particles/Crystals 20 meq PO BID Qty: 2 RF: 0 Continued lisinopril 10 mg tablet 10 mg PO DAILY RF: 0 metformin 500 mg tablet 500 mg PO BID RF: 0 furosemide 20 mg Tablet 40 mg PO DAILY Qty: 30 RF: 0 cyanocobalamin (vitamin B-12) [Vitamin B-12] 1,000 mcg Tablet 1,000 mcg PO DAILY RF: 0 cholecalciferol (vitamin D3) [Vitamin D3] 25 mcg (1,000 unit) Capsule 400 unit PO DAILY RF: 0 meclizine 25 mg tablet 12.5 mg PO TID PRN (Reason: Dizziness) RF: 0 finasteride 5 mg tablet 5 mg PO HS RF: 0 multivitamin Tablet 1 tab PO Q OTHER DAY RF: 0 metoprolol succinate 100 mg tablet extended release 24 hr 100 mg PO PM RF: 0 warfarin 2.5 mg tablet 5 mg PO MOFR RF: 0 warfarin 2.5 mg tablet 2.5 mg PO SUTUWETHSA RF: 0 levothyroxine 50 mcg tablet 50 mcg PO QAM RF: 0 terazosin 10 mg capsule 10 mg PO HS RF: 0 isosorbide mononitrate 30 mg tablet extended release 24 hr 30 mg PO DAILY RF: 0 aspirin 81 mg Tablet,Delayed Release (Dr/Ec) 81 mg PO Q OTHER DAY RF: 0 simvastatin 5 mg tablet 5 mg PO HS RF: 0 Admission Data Admit Date/Time: 06/14/19 11:57 Attending Provider: Wiliam Rocha Admit Provider: Wiliam Rocha Primary Care Provider: Ty Mosqueda Other Providers: [facility] ; [facility] ; Wiliam Rocha ; Irving Reddy ; Oswaldo Connolly ; Geremias Ovalle ; Aldo Gonzalez ; Grey Prather ; Karan Carrera ; Gabriele Carter ; Zaynab Miguel ; Sarita Bush ; Garcia Parsons
[2019-06-17 07:20] LABS: BUN Creatinine Ratio 13.1 (10-20); Calcium 8.3 mg/dl (8.5-10.1); Creatinine Clr Calc Pharmacy 54.5 ml/min; Est GFR (African American) 86.3; Est GFR (Non-African American) 74.5; Potassium 3.7 mmol/L (3.5-5.1)
[2019-06-17] MEDS: POTASSIUM CHLORIDE 20 MEQ TABCR PO SCH (08:14)
[2019-06-17] MEDS: ASPIRIN 81 MG ECTAB PO SCH (08:14)
[2019-06-17] MEDS: CYANOCOBALAMIN 500 MCG TABLET (VITAMIN B-12) PO SCH (08:14)
[2019-06-17] MEDS: FUROSEMIDE 40 MG TAB PO SCH (08:14)
[2019-06-17] MEDS: CHOLECALCIFEROL (VITAMIN D) 400 UNITS TABLET PO SCH (08:14)
[2019-06-17] MEDS: POLYETHYLENE (MIRALAX) 17 GM PACK PO SCH (08:17)
[2019-06-17] MEDS: INSULIN ASPART 100 UNITS/ML 3 ML PEN SC SCH ×2 (08:18→13:04)
[2019-06-17] MEDS: SODIUM CHLORIDE 0.9% 1000ML 1,000 ML IV SCH (09:05)
--- NOTE | 2019-06-17 11:11 | Cardiology Consultation ---
Date of Consultation June 17, 2019 Assessment & Plan (1) Acute CVA (cerebrovascular accident): Patient on aspirin and warfarin with INR now therapeutic No cardiac source of embolus identified but patient with chronic atrial fibrillation, multiple risk factors for stroke (2) Nonsustained ventricular tachycardia: Patient with history of nonsustained ventricular tachycardia and prior pacemaker interrogations in the setting of preserved systolic ejection fraction, asymptomatic. Patient on appropriate beta-ashley therapy (3) Chronic diastolic (congestive) heart failure: Patient has received IV hydration since admission. MERLYN inhibitor and nitrates held Will likely require single dose IV furosemide today Would recommend resuming oral furosemide at 60 mg/day, usual dose MERLYN inhibitor. Given labile blood pressures would reduce terazosin to 5 mg/day to aid in orthostatic issues (4) Atrial fibrillation: On chronic anticoagulation with general good rate control underlying pacemaker (5) Pacemaker: (6) Coronary artery disease: History of Present Illness Reason for Consultation: Patient is an 89-year-old male with complex underlying history includes 1. Ischemic cardiac disease status post coronary bypass grafting x2 in 1990. 2. Class II angina pectoris. 3. Chronic atrial fibrillation. 4. 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 Decompensated diastolic congestive heart failure multifactorial in February 2016 with preserved ejection fraction 6. Hypertension. 7. Hyperlipidemia with poor tolerance to statin therapy, currently tolerating simvastatin 5 mg 8. Transient TIA with hospitalization May 2017 with subtherapeutic INR 9. Type II diabetes mellitus 10. BPH 11. Nonsustained ventricular tachycardia by past pacemaker interrogations and hospitalizations asymptomatic Patient admitted with acute left-sided weakness/CVA. While on monitor noted to have nonsustained ventricular tachycardia asymptomatic. Patient denies any chest pain or worsening angina. Notes no syncope or near syncope. Notes no sense of tachypalpitations orthopnea PND prior to admission. Notes some dyspnea and wheezing today Recently admitted with weakness and fatigue possible dehydration with reduction in diuretic dosing. Difficulties with combination of diastolic heart failure as well as hypotension over the past several months. With resultant changes in medication. He remains chronically anticoagulated though presented slightly subtherapeutic on warfarin Requesting Physician: Dr Rocha Attending Physician: Wiliam Rocha DO Allergies Allergy/AdvReac Type Severity Reaction Status Date / Time Urmtwja-Cqw-All Reductase Allergy Unknown Leg Verified 06/14/19 12:34 Inhibitor weakness and pain Home Medications Home Medications Medication Instructions Recorded Confirmed Type finasteride 5 mg PO HS 06/17/18 06/14/19 History levothyroxine 50 mcg PO QAM 06/17/18 06/14/19 History metoprolol succinate 100 mg PO PM 06/17/18 06/14/19 History multivitamin 1 tab PO Q OTHER DAY 06/17/18 06/14/19 History terazosin 10 mg PO HS 06/17/18 06/14/19 History warfarin 2.5 mg PO SUTUWETHSA 06/17/18 06/14/19 History warfarin 5 mg PO MOFR 06/17/18 06/14/19 History aspirin 81 mg PO Q OTHER DAY 03/27/19 06/14/19 History isosorbide mononitrate 30 mg PO DAILY 03/27/19 06/14/19 History simvastatin 5 mg PO HS 03/27/19 06/14/19 History lisinopril 10 mg PO DAILY 06/03/19 06/14/19 History metformin 500 mg PO BID 06/12/19 06/14/19 History furosemide 40 mg PO DAILY #30 tab 06/13/19 06/14/19 Rx cholecalciferol (vitamin D3) 400 unit PO DAILY 06/14/19 06/14/19 History [Vitamin D3] cyanocobalamin (vitamin B-12) 1,000 mcg PO DAILY 06/14/19 06/14/19 History [Vitamin B-12] meclizine 12.5 mg PO TID PRN 06/14/19 06/14/19 History potassium chloride [Klor-Con M20] 20 meq PO BID #2 tab 06/17/19 Rx Patient History Medical History Atrial fibrillation 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) Basal cell carcinoma of scalp (Resolved 11/29/11) Basal cell carcinoma of skin (Resolved 11/29/11) Bladder cancer (Resolved) BPH (benign prostatic hyperplasia) Chronic anticoagulation (Inactive) Chronic diastolic (congestive) heart failure Coronary artery disease Diabetes mellitus, type II History of cataract HTN (hypertension) Hypothyroidism Pacemaker Tachy-ignacio syndrome TIA (transient ischemic attack) Surgical History History of bladder surgery History of tonsillectomy and adenoidectomy S/P CABG x 2 1990 Family History Father Coronary heart disease Social History Preferred Language: Hungarian Communication Ability: Effective Manager Of Medical Required: No Beliefs That Will Affect Care: None Current Living Situation: Spouse Other Information That Helps Us Care for You: No Feels Safe at Home: Yes Safety Concerns: Feels Safe At This Time Smoking Status: Former smoker Smoking End Date: 1956 ; Second Hand Exposure: No ; Hx Alcohol Use: Yes (Martha) Alcohol type: hard liquor Alcohol Intake Frequency Comment: 1 drink a day Hx Substance Use: No Physical Exam Constitutional: WD/WN, vitals as above no acute distress Eyes: PERRL, conjunctivae normal, anicteric sclerae ENMT: external ear and nose normal, oropharynx normal Neck: trachea midline, no thyromegaly Respiratory: Auscultation: + diminished lung sounds (With scattered bibasilar wheezes) Cardiovascular: Rate/Rhythm: + irregularly irregular (With intermittent pacing) Heart Sounds: normal S1, normal S2 and + murmur (Grade 1/6 to 2/6 systolic murmur right upper sternal border); no gallop Palpation: normal PMI Vessels: normal carotid upstroke and radial pulses present; no carotid bruit Extremities: + edema (Trace) Gastrointestinal (Abdomen): normal bowel sounds, soft, nontender, no hepatosplenomegaly Musculoskeletal: no cyanosis or clubbing, extremities motor strength 5/5 Skin: no rashes, warm and dry Neurologic: PERRL, EOMI, accommodation nl, no face palsy, no dysarthria Mild left-sided weakness Psychiatric: A+Ox3, euthymic affect Results & Data ([facility]) Vital Signs (Past 12 Hours) Vital Signs Temp Pulse Pulse Resp BP Pulse Ox 06/17/19 07:00 36.7 C 73 18 171/80 H 95 06/17/19 06:58 61 06/17/19 03:19 37.0 C 68 22 172/80 H 96 06/16/19 23:19 60 06/16/19 23:15 36.6 C 61 22 157/83 H 99 Laboratory Results Laboratory Results - last 24 hr 06/16/19 06/16/19 06/16/19 11:48 16:58 20:19 WBC RBC Hgb Hct MCV MCH MCHC RDW Std Deviation RDW Coeff of Ashu Plt Count MPV Immature Gran % (Auto) Neut % (Auto) Lymph % (Auto) [place] % (Auto) Eos % (Auto) Baso % (Auto) Immature Gran # (Auto) Neut # (Auto) Lymph # (Auto) [place] # (Auto) Eos # (Auto) Baso # (Auto) PT INR Sodium Potassium Chloride Carbon Dioxide Anion Gap BUN Creatinine Est Cr Clr Drug Dosing Est GFR ( Amer) Est GFR (Non-Af Amer) BUN/Creatinine Ratio Glucose POC Glucose 158 H 123 H 163 H Calcium 06/17/19 06/17/19 06/17/19 06:07 06:07 06:07 WBC 6.15 RBC 3.08 L Hgb 10.4 L Hct 30.0 L MCV 97.4 MCH 33.8 MCHC 34.7 RDW Std Deviation 46.8 H RDW Coeff of Ashu 13.2 Plt Count 189 MPV 10.1 Immature Gran % (Auto) 0.2 Neut % (Auto) 72.1 Lymph % (Auto) 16.4 [place] % (Auto) 8.3 Eos % (Auto) 2.8 Baso % (Auto) 0.2 Immature Gran # (Auto) 0.01 Neut # (Auto) 4.44 Lymph # (Auto) 1.01 L [place] # (Auto) 0.51 Eos # (Auto) 0.17 Baso # (Auto) 0.01 PT 24.6 H INR 2.4 H Sodium 141 Potassium 3.7 Chloride 112 H Carbon Dioxide 20 L Anion Gap 9.0 BUN 12 Creatinine 0.91 Est Cr Clr Drug Dosing 54.5 Est GFR ( Amer) 86.3 Est GFR (Non-Af Amer) 74.5 BUN/Creatinine Ratio 13.1 Glucose 128 H POC Glucose Calcium 8.3 L 06/17/19 07:41 WBC RBC Hgb Hct MCV MCH MCHC RDW Std Deviation RDW Coeff of Ashu Plt Count MPV Immature Gran % (Auto) Neut % (Auto) Lymph % (Auto) [place] % (Auto) Eos % (Auto) Baso % (Auto) Immature Gran # (Auto) Neut # (Auto) Lymph # (Auto) [place] # (Auto) Eos # (Auto) Baso # (Auto) PT INR Sodium Potassium Chloride Carbon Dioxide Anion Gap BUN Creatinine Est Cr Clr Drug Dosing Est GFR ( Amer) Est GFR (Non-Af Amer) BUN/Creatinine Ratio Glucose POC Glucose 146 H Calcium
[2019-06-17] MEDS ORDERED: STROKE PATIENT DISCHARGE STA (11:26)
[2019-06-17] MEDS ORDERED: FUROSEMIDE 60 MG in SYRINGE 0 ML IV SCH (11:45)
== END 2019-06-17 14:41 | DRG 65 ==
LOC: ED 10:37 → 2S 11:57 → 2N 06-16 01:04

== ENCOUNTER 2019-12-10 08:45 | Inpatient (IN) ==
[2019-12-10 09:25] LABS: Eosinophils # (auto) 0.14 K/uL (0-0.5); Eosinophils % (auto) 2.5 %; Hematocrit (blood only) 33.8 % (42-52); Hemoglobin 11.5 g/dL (14.0-18.0); Immature Granulocytes # (auto) 0.03 K/uL (0.00-0.02); Immature Granulocytes % (auto) 0.5 %; Lymphocytes # (auto) 1.21 K/uL (1.2-3.4); Lymphocytes % (auto) 21.4 %; Mean Corpuscular Hemoglobin 33.6 pg (25-34); Mean Corpuscular Volume 98.8 fL (80-100); Monocytes # (auto) 0.59 K/uL (0.11-0.59); Monocytes % (auto) 10.4 %; Neutrophils # (auto) 3.69 K/uL (1.4-6.5); Neutrophils % (auto) 65.2 %; Platelet Count 235 K/uL (130-400); Red Blood Count 3.42 M/uL (4.7-6.1); White Blood Count 5.66 K/uL (4.8-10.8)
[2019-12-10 09:35] LABS: INR 1.4 (0.9-1.1); Partial Thromboplastin Ratio 0.9; Partial Thromboplastin Time 23.8 Seconds (21.0-31.0); Prothrombin Time 14.3 Seconds (9.0-12.0)
--- NOTE | 2019-12-10 09:36 | CT Scan Report ---
HEAD CT NONCONTRAST CT DOSE: 537.48 mGy.cm HISTORY: Stroke symptoms. Left-sided weakness. TECHNIQUE: Multiaxial CT images of the head were performed without the use of intravenous contrast. A utomated exposure control was utilized for this study. A dose lowering technique was utilized adheri ng to the principles of ALARA. Comparison: Head CT 06/15/2019. Findings: The paranasal sinuses and mastoid air cells are clear. The calvarium and skull base are int act. There is no mass, hematoma, midline shift, acute infarct. White matter hypodensity is nonspecifi c but suggestive of microvascular ischemic change. The ventricles and sulci demonstrate mild age-rela han involutional changes. Old small infarct within the bilateral frontal lobes, unchanged. Old small right cerebellar infarct is also noted. Impression: No significant change compared to the prior study. No acute intracranial abnormality. A few scattered old infarcts are again noted. ACT 112: Negative or not required by law. Electronically signed by: Dwight Lomeli M.D. 12/10/2019 9:35 AM
[2019-12-10 09:40] LABS: Albumin Level 3.3 gm/dl (3.4-5.0); Aspartate Aminotransferase 20 U/L (15-37); Blood Urea Nitrogen 26 mg/dl (7-18); Carbon Dioxide 25 mmol/L (21-32); Chloride 107 mmol/L (98-107); Creatinine Clr Calc Pharmacy 36.6 ml/min; Est GFR (African American) 62.4; Est GFR (Non-African American) 53.8; Glucose 130 mg/dl (70-99); Magnesium 1.8 mg/dl (1.8-2.4); Potassium 4.2 mmol/L (3.5-5.1); Sodium 139 mmol/L (136-145)
[2019-12-10 09:45] LABS: Alanine Aminotransferase 19 U/L (12-78); Albumin Globulin Ratio 0.9 (0.9-2); Alkaline Phosphatase 59 U/L (45-117); Bilirubin,Total 0.4 mg/dl (0.2-1); Globulin 3.6 gm/dl (2.5-4.0); Total Protein 6.9 gm/dl (6.4-8.2); Troponin I < 0.015 ng/ml (0-0.045)
[2019-12-10] MEDS ORDERED: Heparin IV Low Dose *NO* Bolus ONE (11:10)
--- NOTE | 2019-12-10 11:13 | History & Physical Report ---
Date of Service December 10, 2019 Assessment & Plan (1) TIA (transient ischemic attack): (2) History of CVA (cerebrovascular accident): This is an 89-year-old male who has significant past medical history of T2DM, HTN, HLD, CKD stage III, hypothyroidism, CAD with history of CABG x2 in , c hronic atrial fibrillation anticoagulated on warfarin, cardiac pacemaker in situ, chronic HFpEF, history of CVA with residual left-sided weakness, history of bladder CA, BPH who presents to ED secondary to difficulty speaking x30 minutes. admit to tele consult neurology start IV heparin low dose until INR therapeutic echo US carotid repeat head CT in a.m. due to unable to obtain MRI PT/OT/ST It is crucial pt have a therapeutic INR given 3rd time presenting with subtherapeutic INR and strokelike symptoms (3) Coronary artery disease: hx of CABG x 2 in continue ASA, Statin, metoprolol and lisinopril with parameters (4) Chronic diastolic (congestive) heart failure: Chronic HFpEF last echo 04/2019 EF 55-60%, mod LVH, RV mildly dilated, RV systolic function normal, moderate mitral enlargement Currently euvolemic Continue metoprolol, lisinopril and Lasix Daily weights, strict I's and O's Heart healthy, low-sodium diet (5) Atrial fibrillation: Rate controlled with metoprolol and pacemaker On warfarin 5 mg on Monday and 2.5 mg all other days Currently he is subtherapeutic at 1.4, and prior presentation of TIA and CVA also has been subtherapeutic Recommend patient has more frequent INR monitoring as outpatient to ensure INR range of 2-3 Start low dose IV heparin until INR therapeutic Give warfarin 5mg today, repeat INR in a.m. (6) Diabetes mellitus, type II: Last A1c 6.5 on 10/25/2019 Hold Metformin Lantus/NovoLog per protocol Repeat A1c in a.m. for stroke protocol (7) HTN (hypertension): Blood pressure stable Continue metoprolol, lisinopril and Lasix with parameters (8) Hypothyroidism: Continue levothyroxine (9) Pacemaker: pacemaker in place not mri compatible (10) DVT prophylaxis: IV heparin low dose Disposition: admit to tele Follow up: PCP Dr. Mosqueda upon discharge Pt was seen and examined in collaboration with Dr. Nelson, please see addendum History of Present Illness Chief Complaint: Difficulty speaking x30 minutes. Primary Care Provider: yT Mosqueda DO This is an 89-year-old male who has significant past medical history of T2DM, HTN, HLD, CKD stage III, hypothyroidism, CAD with history of CABG x2 in , chronic atrial fibrillation anticoagulated on warfarin, cardiac pacemaker in situ, chronic HFpEF, history of CVA with residual left-sided weakness, history of bladder CA, BPH who presents to ED secondary to difficulty speaking x30 minutes. is at bedside. Symptoms started around 8 AM. He states he was trying to talk with . He knew what he wanted to say, but was unable to speak it. He states this was off and on for about 30 minutes. denies any facial droop, slurred speech or worsened weakness. Patient also denies any worsened weakness, dysphagia or drooling. EMS was called. When they arrived symptoms abated. Currently he otherwise feels well. He denies recent fever, chills, sweats, lightheadedness, dizziness, headache, change in vision, chest pain, shortness of breath, cough, nausea, vomiting, abdominal pain, changes bowel or urinary habits. He is requesting lunch. He states he has been on warfarin for approximately 20 years ever since his bypass. He states June 152019 he sustained a right cerebellar stroke with residual left-sided weakness, mostly the left hand and left leg. He does ambulate with a cane. He also admits to mini stroke approximately a month prior. He states both times his INR was subtherapeutic. In ED patient made hemodynamically stable. Lab work notable for H&H 11.5 and 33.8, platelet 235, INR subtherapeutic at 1.4, BUN 26, creatinine 1.19, glucose 130. Head CT was negative for acute intracranial abnormality. Old small right cerebellar infarct noted. Allergies Allergy/AdvReac Type Severity Reaction Status Date / Time Lhkzyzv-Oau-Rgs Reductase Allergy Unknown Leg Verified 12/10/19 10:00 Inhibitor weakness and pain Home Medications Home Medications Medication Instructions Recorded Confirmed Type finasteride 5 mg PO HS 06/17/18 12/10/19 History levothyroxine 50 mcg PO QAM 06/17/18 12/10/19 History metoprolol succinate 100 mg PO HS 06/17/18 12/10/19 History multivitamin 1 tab PO Q OTHER DAY 06/17/18 12/10/19 History terazosin 10 mg PO HS 06/17/18 12/10/19 History warfarin 2.5 mg PO .SUTUWETHFRSA@HS 06/17/18 12/10/19 History warfarin 5 mg PO .MO@HS 06/17/18 12/10/19 History aspirin 81 mg PO Q OTHER DAY 03/27/19 12/10/19 History simvastatin 5 mg PO HS 03/27/19 12/10/19 History lisinopril 10 mg PO QAM 06/03/19 12/10/19 History cholecalciferol (vitamin D3) 400 unit PO Q2D 06/14/19 12/10/19 History [Vitamin D3] cyanocobalamin (vitamin B-12) 1,000 mcg PO QAM 06/14/19 12/10/19 History [Vitamin B-12] furosemide 20 mg PO DAILYBL 12/10/19 12/10/19 History furosemide 40 mg PO DAILY 12/10/19 12/10/19 History metformin 1,000 mg PO BID 12/10/19 12/10/19 History potassium chloride [Klor-Con M20] 20 meq PO BIDM 12/10/19 12/10/19 History Past Med/Surg History Medical History Atrial fibrillation 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) Basal cell carcinoma of scalp (11/29/11) Basal cell carcinoma of skin (11/29/11) Bladder cancer BPH (benign prostatic hyperplasia) Chronic anticoagulation Chronic diastolic (congestive) heart failure Coronary artery disease Diabetes mellitus, type II History of cataract HTN (hypertension) Hypothyroidism Pacemaker Tachy-eula syndrome TIA (transient ischemic attack) Surgical History History of bladder surgery History of tonsillectomy and adenoidectomy S/P CABG x 2 1990 Family History Father Coronary heart disease Social History Smoking Status: Former smoker Second Hand Exposure: No; Do You Dip or Chew Tobacco: No; Tobacco Cessation Education Requested by Patient: No Hx Alcohol Use: Yes Alcohol type: hard liquor Alcohol Intake Frequency Comment: 1 drink a day Hx Substance Use: No Preferred Language: Faroese Communication Ability: Effective Gut Dropper Required: No Beliefs That Will Affect Care: None Current Living Situation: Spouse Other Information That Helps Us Care for You: No Feels Safe at Home: Yes Safety Concerns: Feels Safe At This Time Assistive Devices: Cane and Hearing Aid - Bilateral Review of Systems Review of Systems: All systems reviewed & are unremarkable except as noted in HPI & below Physical Exam Physical Exam: Constitutional: WD/WN, elderly, male, vitals as above, NAD, sitting up in bed, pleasant, conversing easily Head: Normocephalic, Atraumatic Eyes: PERRL, conjunctivae normal, anicteric sclerae ENMT: Hearing device in place, external ear and nose normal, oropharynx normal Neck: trachea midline, no thyromegaly normal visual inspection Respiratory: normal respiratory effort, lungs clear to auscultation, no wheeze, rales, rhonchi. Normal insp/exp effort, no accessory muscle use Cardiovascular: Irregular rate, irregular rhythm, no murmur, no edema Vessels: no JVD or carotid bruit Chest: normal inspection of chest Abdomen: normal bowel sounds, soft, nontender, no hepatosplenomegaly Musculoskeletal: no cyanosis or clubbing, extremities motor strength 5/5, except left upper extremity 3/5, occupational therapy aides teacher strength diminished on the left compared to right Skin: no rashes, dorsal ecchymoses to bilateral upper and lower extremity, warm and dry, mild turgor Neurologic: PERRL, EOMI, accommodation nl, no face palsy, no dysarthria CN's II-XI intact bilaterally and moves all extremities Psychiatric: A+Ox3, euthymic affect : deferred Results & Data Results & Data ([facility]) Vital Signs (Past 12 Hours) Vital Signs Pulse Pulse Resp BP BP Pulse Ox 12/10/19 10:30 64 15 141/78 H 97 12/10/19 10:25 67 20 143/71 H 96 12/10/19 09:45 71 18 131/79 97 12/10/19 08:52 80 18 156/71 H 99 Laboratory Results Short CBC 12/10/19 12/10/19 Range/Units 09:05 09:05 WBC 5.66 (4.8-10.8) K/uL Hgb 11.5 L (14.0-18.0) g/dL Hct 33.8 L (42-52) % Plt Count 235 (130-400) K/uL Creatinine 1.19 (0.6-1.4) mg/dl BMP 12/10/19 09:05 Sodium 139 Potassium 4.2 Chloride 107 Carbon Dioxide 25 BUN 26 H Creatinine 1.19 Glucose 130 H Calcium 9.0 Cardiac Enzymes 12/10/19 Range/Units 09:05 Troponin I < 0.015 (0-0.045) ng/ml Liver Function 12/10/19 Range/Units 09:05 Total Bilirubin 0.4 (0.2-1) mg/dl AST 20 (15-37) U/L ALT 19 (12-78) U/L Alkaline Phosphatase 59 (45-117) U/L Albumin 3.3 L (3.4-5.0) gm/dl Diagnostic Findings Head CT: Impression: No significant change compared to the prior study. No acute intracranial abnormality. A few scattered old infarcts are again noted. Medications Administered Heparin Sodium/Dextrose (Heparin Sodium/Dextrose) 25,000 units in 500 mls @ 0.02 mls/hr IV .Q24H [facility]; Protocol Stop: 01/09/20 11:14 Last Admin: 12/10/19 11:43 Dose: 800 units/hr, 16 mls/hr Documented by: [id number] Cosigned by: [id number] ECG Rate (beats per minute): 75 Findings: + paced rhythm and + prolonged QT (518ms) Code Status & VTE Plan Code Status Full Code VTE Prophylaxis Plan VTE Prophylaxis will be ordered: No Supervising Physician Co-Signing Physician Notes Patient is an 89-year-old male with history of diabetes, CVA, CKD stage III, hypertension, coronary artery disease, atrial fibrillation on Coumadin and other medical problems presents with history of intermittent expressive aphasia which lasted for about 30 minutes. Patient had prior CVA with residual left-sided weakness which is unchanged as per patient. No known history of syncope, dizziness, slurred speech, change in vision, bowel or bladder incontinence, dysphagia, new focal weakness. He was noted to have subtherapeutic INR. Please review HPI for complete details of presentation. CT head showed no significant change compared to prior study. On exam patient is elderly, moderately built and nourished, no apparent distress, normocephalic atraumatic, lungs are clear to auscultation, normal breath sounds, paced rhythm, no audible murmur, no pedal edema, abdomen soft, nontender, normal bowel sounds, neuro--alert awake and oriented x3,+ intermittent expressive aphasia otherwise speech fluent, left upper extremity weakness otherwise grossly nonfocal minimal deficits. Patient is admitted for management of TIA, subtherapeutic INR. Unable to get MRI secondary to pacemaker. Started on IV heparin--continue till INR therapeutic. Continue Coumadin, aspirin. Patient currently not interested in NOAC-would like to consider only once discussed with his primary control clerk. Plan to repeat CT head tomorrow. Neurochecks, PT OT, fall precautions, speech therapy requested. Echo, carotid ultrasound ordered. Patient is on low dose statin given history of intolerance. Check lipid panel. Neurology consulted. We will give 5 mg Coumadin today. I personally reviewed the record. Patient is interviewed and examined at bedside. Patient's care is coordinated with Brenda Cabrales PA-C. Please refer to the documentation above for details of patient's presentation and for discussion of other issues.
[2019-12-10] MEDS: HEPARIN SODIUM/DEXTROSE 25,000 UNITS/500 ML BAG IV SCH (11:43)
[2019-12-10] MEDS ORDERED: MAGNESIUM HYDROXIDE SUSP 30 ML UDC PO PRN (13:00)
[2019-12-10] MEDS ORDERED: PHARMACIST DISCHARGE MED REC CONSULT PRN (13:00)
[2019-12-10] MEDS ORDERED: GLUCAGON FOR INJ 1 MG VIAL SQ PRN (13:00)
[2019-12-10] MEDS ORDERED: GLUCOSE 10 TABS/TUBE PO PRN (13:00)
[2019-12-10] MEDS ORDERED: CARBOHYDRATES FOR HYPOGLYCEMIA PO PRN (13:00)
[2019-12-10] MEDS ORDERED: ACETAMINOPHEN 325 MG TAB PO PRN (13:00)
[2019-12-10] MEDS ORDERED: DEXTROSE 50% 50 ML SYRINGE IV PRN (13:00)
[2019-12-10] MEDS ORDERED: GLUCOSE 40% GEL 15 GM TUBE PO PRN (13:00)
[2019-12-10] MEDS ORDERED: ONDANSETRON INJ 2 MG/ML 2 ML VIAL IV PRN (13:00)
[2019-12-10] MEDS ORDERED: POLYETHYLENE (MIRALAX) 17 GM PACK PO PRN (13:00)
[2019-12-10] MEDS ORDERED: ALUMINUM/MAGNESIUM SUSP 30 ML UDC PO PRN (13:00)
[2019-12-10] MEDS: INSULIN ASPART 100 UNITS/ML 3 ML PEN SC SCH ×3 (13:25→20:18)
[2019-12-10] MEDS ORDERED: PERFLUTREN LIPID MICROSPHERE (DEFINITY) IV ONE (13:32)
--- NOTE | 2019-12-10 14:02 | Emergency Department Note ---
History of Present Illness General Chief complaint: TIA Symptoms Time Seen by Provider: 12/10/19 08:54 Source: patient and family (Spouse who is at the bedside) Mode of arrival: EMS Limitations: no limitations History of Present Illness This patient comes in by ambulance after having an episode at 8:00 this morning where he was aphasic for about 5 minutes he had difficulty getting his words out and he did not seem to make sense to his . She called the ambulance. By the time the ambulance got there he was 100% better. His had strokes in the past he is on Coumadin. He does have some mild residual left-sided weakness from a stroke that he is gotten rehab for he tells me is had no new numbness or weakness. No headache neck pain or stiffness. No chest pain or shortness of breath. No nausea vomiting or diarrhea. No recent over illness or exposure to Covid. No blood or melena stool. Blood sugar was checked and it was 120. Upon arrival to ER he is asymptomatic and doing well Home Medications Home Medications Medication Instructions Recorded Confirmed Type finasteride 5 mg PO HS 06/17/18 12/10/19 History levothyroxine 50 mcg PO QAM 06/17/18 12/10/19 History metoprolol succinate 100 mg PO HS 06/17/18 12/10/19 History multivitamin 1 tab PO Q OTHER DAY 06/17/18 12/10/19 History terazosin 10 mg PO HS 06/17/18 12/10/19 History warfarin 2.5 mg PO .SUTUWETHFRSA@ 06/17/18 12/10/19 History warfarin 5 mg PO .MO@HS 06/17/18 12/10/19 History aspirin 81 mg PO Q OTHER DAY 03/27/19 12/10/19 History simvastatin 5 mg PO HS 03/27/19 12/10/19 History lisinopril 10 mg PO QAM 06/03/19 12/10/19 History cholecalciferol (vitamin D3) 400 unit PO Q2D 06/14/19 12/10/19 History [Vitamin D3] cyanocobalamin (vitamin B-12) 1,000 mcg PO QAM 06/14/19 12/10/19 History [Vitamin B-12] furosemide 20 mg PO DAILYBL 12/10/19 12/10/19 History furosemide 40 mg PO DAILY 12/10/19 12/10/19 History metformin 1,000 mg PO BID 12/10/19 12/10/19 History potassium chloride [Klor-Con M20] 20 meq PO BIDM 12/10/19 12/10/19 History Allergies Allergy/AdvReac Type Severity Reaction Status Date / Time Loygqym-Qwa-Gqm Reductase Allergy Unknown Leg Verified 12/10/19 10:00 Inhibitor weakness and pain Past Med/Surg History Medical History Atrial fibrillation 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) Basal cell carcinoma of scalp (11/29/11) Basal cell carcinoma of skin (11/29/11) Bladder cancer BPH (benign prostatic hyperplasia) Chronic anticoagulation Chronic diastolic (congestive) heart failure Coronary artery disease Diabetes mellitus, type II History of cataract HTN (hypertension) Hypothyroidism Pacemaker Tachy-eula syndrome TIA (transient ischemic attack) Surgical History History of bladder surgery History of tonsillectomy and adenoidectomy S/P CABG x 2 1990 Family History Father Coronary heart disease Social History Smoking Status: Former smoker Second Hand Exposure: No; Do You Dip or Chew Tobacco: No; Tobacco Cessation Education Requested by Patient: No Hx Alcohol Use: Yes Alcohol type: hard liquor Alcohol Intake Frequency Comment: 1 drink a day Hx Substance Use: No Preferred Language: Macanese Communication Ability: Effective Vascular Technologist Sonographer Required: No Beliefs That Will Affect Care: None Current Living Situation: Spouse Other Information That Helps Us Care for You: No Feels Safe at Home: Yes Safety Concerns: Feels Safe At This Time Assistive Devices: Cane, Glasses and Hearing Aid - Bilateral Review of Systems A total of 10 systems reviewed and were otherwise negative Physical Exam Vital Signs Vital Signs - 24 hr 12/10/19 08:52 12/10/19 09:45 12/10/19 10:25 Temperature Source Oral Pulse Rate 80 67 Pulse Rate [Apical] 71 Respiratory Rate 18 18 20 Respiratory Effort / Characteristics Non-Labored Respiratory Depth Normal Blood Pressure 156/71 H 143/71 H Blood Pressure [Right Arm] 131/79 Blood Pressure Mean 99 97 Blood Pressure Mean [Right Arm] 96 Pulse Oximetry 99 97 96 Oxygen Delivery Method Room Air Room Air Sepsis Recent Fever Within 48 Hours No Sepsis New/Unexplained Change in Mental Status N/A Sepsis Action Taken by Nursing No Action Required 12/10/19 10:30 Temperature Source Pulse Rate 64 Pulse Rate [Apical] Respiratory Rate 15 Respiratory Effort / Characteristics Respiratory Depth Blood Pressure 141/78 H Blood Pressure [Right Arm] Blood Pressure Mean 91 Blood Pressure Mean [Right Arm] Pulse Oximetry 97 Oxygen Delivery Method Sepsis Recent Fever Within 48 Hours Sepsis New/Unexplained Change in Mental Status Sepsis Action Taken by Nursing General: Well developed well nourished not ill-appearing older male who is speaking and swallowing without difficulty and appears in no acute distress, breathing comfortably on room air. Normal speech HEENT: Normal cephalic atraumatic. Pupils are equal round and reactive to light. Extraocular movements are intact. Oropharynx is pink with moist mucous membranes. No swelling of the mouth lips or tongue. Neck: Supple with a midline trachea. No meningeal signs or stiffness, no JVD or bruits. No Stridor. Chest: Clear to auscultation bilaterally. No wheezes or rhonchi. No increased work of breathing. Heart: Regular rate and rhythm without murmurs or gallops. Abdomen: Soft nontender, nondistended without rebound guarding or rigidity. Extremities: No cyanosis clubbing or edema. No calf tenderness or assymetry Spine/Back. Non tender to palpation. No CVA tenderness Skin: Good turgor without rashes. Neurologic exam: Cranial nerves two through 12 are intact. Motor and sensation are intact and symmetrical throughout. No tremor Course Administered Medications Heparin Sodium/Dextrose (Heparin Sodium/Dextrose) 25,000 units in 500 mls @ 16 mls/hr IV .Q24H [facility]; Protocol Stop: 01/09/20 11:14 Last Admin: 12/10/19 11:43 Dose: 800 units/hr, 16 mls/hr Documented by: [id number] Cosigned by: [id number] Insulin Aspart (Insulin Aspart 100 Units/Ml 3 Ml Pen) 0 units SC ACHS [facility] Stop: 01/09/20 12:59 Last Admin: 12/10/19 13:25 Dose: Not Given Documented by: [id number] Cosigned by: [id number] Discontinued Medications Heparin Sodium/Dextrose (Heparin Iv Low Dose *No* Bolus) 1 ea N/A ONE ONE; Protocol Stop: 12/10/19 11:11 Last Admin: 12/10/19 11:59 Dose: Not Given Documented by: [id number] Perflutren Lipid Microsphere (Perflutren Lipid Microsphere (Definity)) 2 ml IV ONCE ONE Stop: 12/10/19 13:33 Last Admin: 12/10/19 13:32 Dose: 2 ml Documented by: [id number] Medical Decision Making Differential Diagnosis TIA, stroke, intracranial hemorrhage, electrolyte or metabolic abnormality, anemia, infection Medical Records Attestation: I reviewed the patient's medical records. Home Medications Current Medication List: was personally reviewed by me Laboratory Data Attestation: I reviewed the patient's lab results. Result diagrams: 12/10/19 09:05 12/10/19 09:05 Lab Results 12/10/19 12/10/19 12/10/19 Range/Units 09:05 09:05 09:05 WBC 5.66 (4.8-10.8) K/uL RBC 3.42 L (4.7-6.1) M/uL Hgb 11.5 L (14.0-18.0) g/dL Hct 33.8 L (42-52) % MCV 98.8 (80-100) fL MCH 33.6 (25-34) pg MCHC 34.0 (32-36) g/dL RDW Std Deviation 47.0 H (36.4-46.3) fL RDW Coeff of Ashu 13.0 (11.5-14.5) % Plt Count 235 (130-400) K/uL MPV 10.0 (7.4-10.4) fL Immature Gran % (Auto) 0.5 % Neut % (Auto) 65.2 % Lymph % (Auto) 21.4 % [place] % (Auto) 10.4 % Eos % (Auto) 2.5 % Baso % (Auto) 0.0 % Neut # (Auto) 3.69 (1.4-6.5) K/uL Lymph # (Auto) 1.21 (1.2-3.4) K/uL [place] # (Auto) 0.59 (0.11-0.59) K/uL Eos # (Auto) 0.14 (0-0.5) K/uL Baso # (Auto) 0.00 (0-0.2) K/uL Immature Gran # (Auto) 0.03 H (0.00-0.02) K/uL PT 14.3 H (9.0-12.0) Seconds INR 1.4 H (0.9-1.1) APTT 23.8 (21.0-31.0) Seconds PTT Ratio 0.9 Sodium 139 (136-145) mmol/L Potassium 4.2 (3.5-5.1) mmol/L Chloride 107 (98-107) mmol/L Carbon Dioxide 25 (21-32) mmol/L Anion Gap 7.0 (3-11) BUN 26 H (7-18) mg/dl Creatinine 1.19 (0.6-1.4) mg/dl Est Cr Clr Drug Dosing 36.6 ml/min Est GFR ( Amer) 62.4 Est GFR (Non-Af Amer) 53.8 BUN/Creatinine Ratio 22.0 H (10-20) Glucose 130 H (70-99) mg/dl POC Glucose (70-99) mg/dl Calcium 9.0 (8.5-10.1) mg/dl Magnesium 1.8 (1.8-2.4) mg/dl Total Bilirubin 0.4 (0.2-1) mg/dl AST 20 (15-37) U/L ALT 19 (12-78) U/L Alkaline Phosphatase 59 (45-117) U/L Troponin I < 0.015 (0-0.045) ng/ml Total Protein 6.9 (6.4-8.2) gm/dl Albumin 3.3 L (3.4-5.0) gm/dl Globulin 3.6 (2.5-4.0) gm/dl Albumin/Globulin Ratio 0.9 (0.9-2) 12/10/19 Range/Units 09:10 WBC (4.8-10.8) K/uL RBC (4.7-6.1) M/uL Hgb (14.0-18.0) g/dL Hct (42-52) % MCV (80-100) fL MCH (25-34) pg MCHC (32-36) g/dL RDW Std Deviation (36.4-46.3) fL RDW Coeff of Ashu (11.5-14.5) % Plt Count (130-400) K/uL MPV (7.4-10.4) fL Immature Gran % (Auto) % Neut % (Auto) % Lymph % (Auto) % [place] % (Auto) % Eos % (Auto) % Baso % (Auto) % Neut # (Auto) (1.4-6.5) K/uL Lymph # (Auto) (1.2-3.4) K/uL [place] # (Auto) (0.11-0.59) K/uL Eos # (Auto) (0-0.5) K/uL Baso # (Auto) (0-0.2) K/uL Immature Gran # (Auto) (0.00-0.02) K/uL PT (9.0-12.0) Seconds INR (0.9-1.1) APTT (21.0-31.0) Seconds PTT Ratio Sodium (136-145) mmol/L Potassium (3.5-5.1) mmol/L Chloride (98-107) mmol/L Carbon Dioxide (21-32) mmol/L Anion Gap (3-11) BUN (7-18) mg/dl Creatinine (0.6-1.4) mg/dl Est Cr Clr Drug Dosing ml/min Est GFR ( Amer) Est GFR (Non-Af Amer) BUN/Creatinine Ratio (10-20) Glucose (70-99) mg/dl POC Glucose 145 H (70-99) mg/dl Calcium (8.5-10.1) mg/dl Magnesium (1.8-2.4) mg/dl Total Bilirubin (0.2-1) mg/dl AST (15-37) U/L ALT (12-78) U/L Alkaline Phosphatase (45-117) U/L Troponin I (0-0.045) ng/ml Total Protein (6.4-8.2) gm/dl Albumin (3.4-5.0) gm/dl Globulin (2.5-4.0) gm/dl Albumin/Globulin Ratio (0.9-2) Imaging Data Radiologist's Impression: HEAD CT NONCONTRAST CT DOSE: 537.48 mGy.cm HISTORY: Stroke symptoms. Left-sided weakness. TECHNIQUE: Multiaxial CT images of the head were performed without the use of intravenous contrast. Automated exposure control was utilized for this study. A dose lowering technique was utilized adhering to the principles of ALARA. Comparison: Head CT 06/15/2019. Findings: The paranasal sinuses and mastoid air cells are clear. The calvarium and skull base are intact. There is no mass, hematoma, midline shift, acute in farct. White matter hypodensity is nonspecific but suggestive of microvascular ischemic change. The ventricles and sulci demonstrate mild age-related involutional changes. Old small infarct within the bilateral frontal lobes, unchanged. Old small right cerebellar infarct is also noted. Impression: No significant change compared to the prior study. No acute intracranial abnormality. A few scattered old infarcts are again noted. ECG Data Attestation: I personally reviewed and interpreted this ECG as follows: Indication: + weakness and + other (TIA) Rate (beats per minute): 60 Rhythm: + other (Ventricular paced rhythm) ECG Intervals/blocks: + IVCD ECG Deep Gap: + Normal ECG ST segments: + Normal ST segments ECG Findings: no PACs and no PVCs Comparison ECG Date: from (06/14/11) Change: no significant change MDM Narrative This patient comes in as described above. He had TIA type symptoms but is feeling better now. He had stroke type symptoms although with his resolution of symptoms and the fact that he is on Coumadin he would not be a TPA candidate at this point. This point his NIH stroke score is 0. He looks well. A full stroke work-up was obtained. CAT scan was unremarkable. His EKG shows a paced rhythm. He has no significant electrolyte or metabolic abnormality. He has no thing to suggest infection or sepsis. I do think he needs to be admitted/observe for his strokelike symptoms/TIA and [facility]. Impression & Plan TIA (transient ischemic attack), Aphasia, Pacemaker, Current use of chcf anticoagulation Discharge Plan Visit Data Chief Complaint: TIA Symptoms ED Provider: Gregory Salgado ED Midlevel Provider: Aneta Blanchard Discharge Problem: TIA (transient ischemic attack), Aphasia, Pacemaker, Current use of chcf anticoagulation Patient Disposition: Admitted As Inpatient Discharge Instructions Interventions: ED Discharge Assessment Last Done: 12/10/19 12:18
--- NOTE | 2019-12-10 15:39 | Consultation Report ---
DATE OF CONSULTATION: 12/10/2019 NEUROLOGY CONSULTATION NOTE CHIEF COMPLAINT: Speech difficulty. HISTORY OF PRESENT ILLNESS: An 89-year-old male with multiple medical comorbidities including type 2 diabetes, hypertension, chronic kidney disease, CAD status post coronary artery bypass graft and chronic atrial fibrillation on Coumadin, as well as a pacemaker, admitted with intermittent speech difficulty. Symptoms lasted for 30 minutes. He presented to the Emergency Department this morning. His was at bedside. Symptoms started around 8:00 a.m. this morning; he was trying to talk to his when this occurred. He knew what he wanted to say, but was unable to say it. The symptoms waxed and waned for 30 minutes. There was no facial droop, slurred speech or worsening weakness. He does have residual sided weakness from a prior stroke. Denies drooling, dysphagia or worsening weakness. EMS was called. Symptoms had resolved upon arrival. Otherwise feels well. No recent fever or chills. No shortness of breath, cough, nausea, vomiting, abdominal pain, changes in bowel or bladder. He has been off Coumadin for approximately 20 years ever since his bypass. 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 He does have a history of a subtherapeutic INR. The patient was admitted for further evaluation and possible transient ischemic attack. CT head noncontrast was performed in the ED, was negative for any acute intracranial abnormality. There was an old right cerebellar infarct. Consultation was placed to neurology upon admission. ALLERGIES: HE IS ALLERGIC TO STATIN MEDICATIONS. HOME MEDICATIONS: Include Synthroid, terazosin, Coumadin, aspirin, simvastatin, lisinopril, vitamin B12, Lasix, metformin, potassium chloride. PAST MEDICAL HISTORY: Atrial fibrillation, basal cell carcinoma, bladder cancer, BPH, chronic diastolic heart failure, coagulopathy, type 2 diabetes, history of cataracts, hypertension, hypothyroidism, TIA. PAST SURGICAL HISTORY: History of bladder surgery, tonsillectomy, adenoidectomy, coronary artery bypass graft x2. FAMILY HISTORY: Pertinent for his father had coronary artery disease. SOCIAL HISTORY: He is a former smoker. He drinks hard liquor, 1 drink per day. He lives with his . He is . REVIEW OF SYSTEMS: All systems reviewed and negative except as noted above in the HPI. PHYSICAL EXAMINATION: VITAL SIGNS: Blood pressure 158/82, pulse is 60, respiratory rate is 18, temperature is 36.7 degrees Celsius, oxygen saturation is 99% on room air. GENERAL: The patient appears stated age, no distress. Sitting in wheelchair. HEENT: Face is normocephalic and atraumatic. EYES: Normal eyelids and normal conjunctivae. NECK: Supple. LUNGS: Normal respiratory effort. CARDIOVASCULAR: Normal pulses. ABDOMEN: Nondistended. SKIN: No rash. PSYCHIATRIC: Normal mood. NEUROLOGIC: He is awake, alert and oriented to person, place and time. Attention is normal. Knowledge is appropriate. Comprehension is intact. Speech is nonfluent. Pupils are symmetric. Eyes are midline. Extraocular muscles are intact. Facial sensation is intact. No facial asymmetry. Hearing is intact. Palate is symmetric. Good shoulder shrug. Tongue is midline. Gait examination is deferred. No ataxia with [id number] testing but has difficulty on left due to shoulder. Sensation is intact to light touch. Muscle tone is normal. Motor examination reveals left upper extremity weakness which is chronic. DIAGNOSTIC TESTING AND LABORATORY VALUES: WBC 5.66, hemoglobin 11.5, platelet count is 235. INR is 1.4. Chemistries: Sodium is 139, potassium 4.2, chloride 107, carbon dioxide 25, BUN is 26, creatinine 1.19, glucose 130, AST and ALT are normal. IMAGING: Head CT noncontrast showed no significant change compared to the prior study. No acute intracranial hemorrhage or acute ischemic stroke. A few scattered old infarcts are again noted. ASSESSMENT AND PLAN: An 89-year-old male with history of prior stroke as well as transient ischemic attack as well as multiple stroke risk factors including chronic atrial fibrillation on Coumadin, as well as prior CABG on aspirin every other day, admitted with a mild word finding difficulty. Differential diagnosis certainly includes transient ischemic attack or an embolic infarct. The patient has a pacemaker and is unable to get MRI brain. Agree with continuing Coumadin with goal INR between 2 and 3. Current INR is subtherapeutic. If INR's remain labile or difficult to control may need to consider asking Cardiology if starting a novel anticoagulant is appropriate. I did discuss NOAC with patient but he wishes to discuss with Dr. Gonzalez. Would recommend repeat CT noncontrast in 24 hours. Otherwise, agree with physical therapy and occupational therapy evaluation for any home rehabilitation needs. The patient will need neurology followup in 8 weeks. MARISOL
--- NOTE | 2019-12-10 15:56 | Ultrasound Report ---
BILATERAL CAROTID DOPPLER STUDY HISTORY: TIA sx COMPARISON: None. TECHNIQUE: Real-time, grayscale, and color Doppler sonography of the carotid arteries was performed. Imaging reviewed in the transverse and longitudinal planes. All measurements were calculated based on NASCET criteria. FINDINGS: Antegrade flow is seen in the bilateral vertebral arteries. The brachial pressures were not obtained. Moderate scattered calcified plaque within the bilateral carotid bifurcations and proximal internal a nd external carotid arteries. The peak systolic velocity within the right ICA is 63 cm/s. The right systolic ratio is 1.0. The peak systolic velocity within the left ICA is 53 cm/s. The left systolic ratio is 0.9. IMPRESSION: No hemodynamically significant stenosis seen within the carotid arteries. Moderate calcified plaque. ACT 112: Negative or not required by law. Electronically signed by: Dwight Lomeli M.D. 12/10/2019 3:55 PM
[2019-12-10] MEDS ORDERED: WARFARIN SOD 5 MG TAB PO SCH (16:00)
[2019-12-10] MEDS: POTASSIUM CHLORIDE CRTAB 20 MEQ TABCR PO SCH (16:44)
[2019-12-10 18:26] LABS: Partial Thromboplastin Ratio 1.4; Partial Thromboplastin Time 40.2 Seconds (21.0-31.0)
[2019-12-10] MEDS ORDERED: HEPARIN IV BOLUS 4,500 UNITS in SYRINGE 0 ML IV ONE (19:15)
[2019-12-10] MEDS: TERAZOSIN HCL 5 MG CAP PO SCH (20:01)
[2019-12-10] MEDS: SIMVASTATIN 5 MG TAB PO SCH (20:01)
[2019-12-10] MEDS: METOPROLOL SUCC 50MG EXT REL TAB PO SCH (20:02)
[2019-12-10] MEDS: FINASTERIDE 5 MG TAB PO SCH (20:02)
[2019-12-10] MEDS: INSULIN GLARGINE SOLOSTAR 100 UNITS/ML 3 ML PEN SC SCH (20:18)
[2019-12-11 01:52] LABS: Basophils # (auto) 0.01 K/uL (0-0.2); Basophils % (auto) 0.2 %; Eosinophils # (auto) 0.12 K/uL (0-0.5); Eosinophils % (auto) 2.1 %; Hematocrit (blood only) 30.6 % (42-52); Hemoglobin 10.7 g/dL (14.0-18.0); Immature Granulocytes # (auto) 0.02 K/uL (0.00-0.02); Immature Granulocytes % (auto) 0.4 %; Lymphocytes # (auto) 1.33 K/uL (1.2-3.4); Lymphocytes % (auto) 23.8 %; Mean Corpuscular Hemoglobin 34.1 pg (25-34); Mean Corpuscular Volume 97.5 fL (80-100); Mean Platelet Volume 10.1 fL (7.4-10.4); Monocytes # (auto) 0.64 K/uL (0.11-0.59); Monocytes % (auto) 11.4 %; Neutrophils # (auto) 3.47 K/uL (1.4-6.5); Neutrophils % (auto) 62.1 %; Platelet Count 219 K/uL (130-400); RDW Coefficient of Variation 12.7 % (11.5-14.5); RDW Standard Deviation 45.2 fL (36.4-46.3); Red Blood Count 3.14 M/uL (4.7-6.1); White Blood Count 5.59 K/uL (4.8-10.8)
[2019-12-11 03:58] LABS: BUN Creatinine Ratio 20.9 (10-20); Calcium 8.6 mg/dl (8.5-10.1); Creatinine Clr Calc Pharmacy 42.7 ml/min; Est GFR (African American) 75.2; Est GFR (Non-African American) 64.9; Potassium 3.8 mmol/L (3.5-5.1)
[2019-12-11 04:00] LABS: INR 1.6 (0.9-1.1); Partial Thromboplastin Ratio 3.9; Prothrombin Time 16.7 Seconds (9.0-12.0)
[2019-12-11 04:01] LABS: Partial Thromboplastin Time 110.2 Seconds (21.0-31.0)
--- NOTE | 2019-12-11 05:59 | Electrocardiogram Report ---
Test Reason : Blood Pressure : / mmHG Vent. Rate : 075 BPM Atrial Rate : 072 BPM P-R Int : 000 ms QRS Dur : 186 ms QT Int : 464 ms P-R-T Axes : 000 -57 117 degrees QTc Int : 518 ms Ventricular-paced rhythm Abnormal ECG When compared with ECG of 14-JUN-2019 10:52, Vent. rate has increased BY 6 BPM Confirmed by Nima Boles ([id number]) on 12/11/2019 5:58:51 AM Referred By: REFERRED SELF Confirmed By:Nima Boles
[2019-12-11 06:02] LABS: Estimated Average Glucose 143 mg/dl; Hemoglobin A1C 6.6 % (4.5-5.6)
[2019-12-11] MEDS: LEVOTHYROXINE SODIUM 50 MCG TABLET PO SCH (06:12)
[2019-12-11] MEDS: INSULIN ASPART 100 UNITS/ML 3 ML PEN SC SCH ×4 (08:20→20:28)
[2019-12-11] MEDS: CYANOCOBALAMIN 500 MCG TABLET (VITAMIN B-12) PO SCH (08:23)
[2019-12-11] MEDS: lisinopril 10 MG TAB PO SCH (08:23)
[2019-12-11] MEDS: POTASSIUM CHLORIDE CRTAB 20 MEQ TABCR PO SCH ×2 (08:23→16:53)
[2019-12-11] MEDS: FUROSEMIDE 40 MG TAB PO SCH (08:23)
[2019-12-11] MEDS: INSULIN GLARGINE SOLOSTAR 100 UNITS/ML 3 ML PEN SC SCH ×2 (08:24→20:29)
[2019-12-11] MEDS ORDERED: MULTIVITAMIN TAB PO SCH (09:00)
[2019-12-11] MEDS ORDERED: CHOLECALCIFEROL 400 UNITS 10 MCG TAB PO SCH (09:00)
[2019-12-11] MEDS ORDERED: ASPIRIN 81 MG ECTAB PO SCH (09:00)
--- NOTE | 2019-12-11 09:15 | CT Scan Report ---
CT OF THE HEAD WITHOUT CONTRAST CLINICAL HISTORY: Follow up TIA sx COMPARISON STUDY: Head CT June 15, 2019 and December 10, 2019. CT DOSE: 614.27 mGy.cm TECHNIQUE: Helical axial images of the head were obtained without IV contrast. Automated exposure con trol was utilized for the study. A dose lowering technique was utilized adhering to the principles o f ALARA. FINDINGS: No acute intracranial hemorrhage, midline shift or mass effect is present. Ventricular syst em is stable. Basilar cisterns are patent. There are no extra-axial collections. Several old infarcts are again noted. No acute infarct is identified on this exam. White matter hypodensities represent m oderate small vessel disease. There are no significant calvarial abnormalities. Visualized portions o f the sinuses and mastoid air cells are clear. IMPRESSION: No acute intracranial findings. No change in appearance of the brain. Several old infarc ts and moderate small vessel disease. ACT 112: Negative or not required by law. Electronically signed by: Ted Herring M.D. 12/11/2019 9:14 AM
[2019-12-11 11:23] LABS: Partial Thromboplastin Time 56.4 Seconds (21.0-31.0)
[2019-12-11] MEDS: FUROSEMIDE 20 MG TAB PO SCH (11:50)
[2019-12-11] MEDS ORDERED: WARFARIN SOD 5 MG TAB PO SCH (16:00)
[2019-12-11] MEDS: HEPARIN SODIUM/DEXTROSE 25,000 UNITS/500 ML BAG IV SCH (16:55)
[2019-12-11] MEDS: TERAZOSIN HCL 5 MG CAP PO SCH (20:17)
[2019-12-11] MEDS: SIMVASTATIN 5 MG TAB PO SCH (20:18)
[2019-12-11] MEDS: METOPROLOL SUCC 50MG EXT REL TAB PO SCH (20:18)
[2019-12-11] MEDS: FINASTERIDE 5 MG TAB PO SCH (20:18)
--- NOTE | 2019-12-11 21:03 | Hospitalist Progress Note ---
Date of Service December 11, 2019 Assessment & Plan (1) Stroke-like symptom: Presented with dysarthria that seemed to improve, but persistent / recurrent problems today. Head CT x 2 showed old strokes, no apparent acute event. Cannot obtain MRI due to pacemaker. Carotid duplex showed bilat plaque without significant stenosis. Echo did not show any apparent thrombi. Chronic atrial fibrillation. Has been on warfarin, but INR subtherapeutic. Neurology recommended considering DOAC- will discuss with Cardiology. Continue IV heparin until INR therapeutic or DOAC therapy started. Continue GERIATRIC PERSONAL CARE AIDE. (2) Coronary artery disease: No anginal symptoms. Continue ASA, metoprolol, statin. (3) Atrial fibrillation: Continue metoprolol and anticoagulation. (4) HTN (hypertension): Continue metoprolol and lisinopril. (5) Diabetes mellitus, type II: Hold metformin during hospital stay. Hgb A1c 6.6. Insulin coverage as needed. (6) DVT prophylaxis: Currently receiving IV heparin + warfarin. Ambulate. (7) Discharge planning issues: Anticipated discharge to home. Internal Medicine follow-up with Dr. Mosqueda. Cardiology follow-up with Dr. Gonzalez. Admission and Anticipated Discharge Date Admission Date: December 11, 2019 Subjective Recheck for stroke-like symptoms. Patient seen in their room around 1240. Did not get much rest last night. Intermittent dysarthria- needs to focus to enunciate words. No headache. No other neuro symptoms. Review of Systems: Constitutional- no fever. Cardiac- no chest pain. Pulmonary- no cough or SOB. GI- no nausea, vomiting, diarrhea, melena, hematochezia. - no urinary symptoms. Otherwise, as noted above. Physical Exam Constitutional: no acute distress Respiratory: no respiratory distress Auscultation: lungs clear to auscultation bilaterally Cardiovascular: Rate/Rhythm: regular rate and regular rhythm (with occasional ectopy) Vessels: no JVD Extremities: no calf tenderness and no edema Gastrointestinal (Abdomen): normal bowel sounds, soft, nontender, no hepatosplenomegaly Musculoskeletal: Extremities: no cyanosis Skin: no rashes, warm and dry Neurologic: alert, oriented PERRL, EOMI moderate dysarthria, intermittent no apparent aphasia no facial palsy motor strength upper and lower extremities essentially 5/5 (decreased ROM left shoulder due to rotator cuff tear) Psychiatric: Orientation: alert and oriented x 3 Results & Data Results & Data ([facility]) Vital Signs (Past 12 Hours) Vital Signs Temp Pulse Resp BP Pulse Ox 12/11/19 19:18 36.9 C 63 14 124/79 96 12/11/19 15:24 36.4 C L 78 20 114/60 97 12/11/19 11:29 36.7 C 62 18 121/71 97 Laboratory Results Laboratory Results - last 24 hr 12/11/19 12/11/19 12/11/19 01:39 01:39 01:39 WBC 5.59 RBC 3.14 L Hgb 10.7 L Hct 30.6 L MCV 97.5 MCH 34.1 H MCHC 35.0 RDW Std Deviation 45.2 RDW Coeff of Ashu 12.7 Plt Count 219 MPV 10.1 Immature Gran % (Auto) 0.4 Neut % (Auto) 62.1 Lymph % (Auto) 23.8 [place] % (Auto) 11.4 Eos % (Auto) 2.1 Baso % (Auto) 0.2 Neut # (Auto) 3.47 Lymph # (Auto) 1.33 [place] # (Auto) 0.64 H Eos # (Auto) 0.12 Baso # (Auto) 0.01 Immature Gran # (Auto) 0.02 PT INR APTT PTT Ratio Sodium 140 Potassium 3.8 Chloride 110 H Carbon Dioxide 25 Anion Gap 5.0 BUN 21 H Creatinine 1.02 Est Cr Clr Drug Dosing 42.7 Est GFR ( Amer) 75.2 Est GFR (Non-Af Amer) 64.9 BUN/Creatinine Ratio 20.9 H Glucose 104 H POC Glucose Estimat Average Glucose 143 Hemoglobin A1c 6.6 H Calcium 8.6 Triglycerides 95 Cholesterol 148 LDL Cholesterol, Calc 73 VLDL Cholesterol, Calc 19 HDL Cholesterol 56 Cholesterol/HDL Ratio 3 12/11/19 12/11/19 12/11/19 01:39 07:22 10:08 WBC RBC Hgb Hct MCV MCH MCHC RDW Std Deviation RDW Coeff of Ashu Plt Count MPV Immature Gran % (Auto) Neut % (Auto) Lymph % (Auto) [place] % (Auto) Eos % (Auto) Baso % (Auto) Neut # (Auto) Lymph # (Auto) [place] # (Auto) Eos # (Auto) Baso # (Auto) Immature Gran # (Auto) PT 16.7 H INR 1.6 H APTT 110.2 H* 56.4 H* PTT Ratio 3.9 2.0 Sodium Potassium Chloride Carbon Dioxide Anion Gap BUN Creatinine Est Cr Clr Drug Dosing Est GFR ( Amer) Est GFR (Non-Af Amer) BUN/Creatinine Ratio Glucose POC Glucose 128 H Estimat Average Glucose Hemoglobin A1c Calcium Triglycerides Cholesterol LDL Cholesterol, Calc VLDL Cholesterol, Calc HDL Cholesterol Cholesterol/HDL Ratio 12/11/19 12/11/19 12/11/19 11:31 16:29 20:27 WBC RBC Hgb Hct MCV MCH MCHC RDW Std Deviation RDW Coeff of Ashu Plt Count MPV Immature Gran % (Auto) Neut % (Auto) Lymph % (Auto) [place] % (Auto) Eos % (Auto) Baso % (Auto) Neut # (Auto) Lymph # (Auto) [place] # (Auto) Eos # (Auto) Baso # (Auto) Immature Gran # (Auto) PT INR APTT PTT Ratio Sodium Potassium Chloride Carbon Dioxide Anion Gap BUN Creatinine Est Cr Clr Drug Dosing Est GFR ( Amer) Est GFR (Non-Af Amer) BUN/Creatinine Ratio Glucose POC Glucose 118 H 122 H 151 H Estimat Average Glucose Hemoglobin A1c Calcium Triglycerides Cholesterol LDL Cholesterol, Calc VLDL Cholesterol, Calc HDL Cholesterol Cholesterol/HDL Ratio
[2019-12-12] MEDS: LEVOTHYROXINE SODIUM 50 MCG TABLET PO SCH (06:10)
[2019-12-12 07:08] LABS: Basophils # (auto) 0.01 K/uL (0-0.2); Basophils % (auto) 0.2 %; Eosinophils # (auto) 0.18 K/uL (0-0.5); Eosinophils % (auto) 3.4 %; Hematocrit (blood only) 32.1 % (42-52); Hemoglobin 11.2 g/dL (14.0-18.0); Immature Granulocytes # (auto) 0.02 K/uL (0.00-0.02); Immature Granulocytes % (auto) 0.4 %; Lymphocytes # (auto) 1.21 K/uL (1.2-3.4); Lymphocytes % (auto) 22.5 %; Mean Corpuscular Hemoglobin 33.7 pg (25-34); Mean Corpuscular Hgb Conc 34.9 g/dL (32-36); Mean Corpuscular Volume 96.7 fL (80-100); Mean Platelet Volume 10.3 fL (7.4-10.4); Monocytes # (auto) 0.64 K/uL (0.11-0.59); Monocytes % (auto) 11.9 %; Neutrophils # (auto) 3.31 K/uL (1.4-6.5); Neutrophils % (auto) 61.6 %; Platelet Count 231 K/uL (130-400); RDW Coefficient of Variation 12.8 % (11.5-14.5); RDW Standard Deviation 44.8 fL (36.4-46.3); Red Blood Count 3.32 M/uL (4.7-6.1); White Blood Count 5.37 K/uL (4.8-10.8)
[2019-12-12 07:38] LABS: INR 1.9 (0.9-1.1); Partial Thromboplastin Ratio 1.9; Prothrombin Time 18.9 Seconds (9.0-12.0)
[2019-12-12 07:40] LABS: BUN Creatinine Ratio 16.7 (10-20); Calcium 8.6 mg/dl (8.5-10.1); Creatinine Clr Calc Pharmacy 42.3 ml/min; Est GFR (African American) 74.3; Est GFR (Non-African American) 64.1; Potassium 3.7 mmol/L (3.5-5.1)
[2019-12-12] MEDS: INSULIN ASPART 100 UNITS/ML 3 ML PEN SC SCH ×2 (08:24→11:54)
[2019-12-12] MEDS: INSULIN GLARGINE SOLOSTAR 100 UNITS/ML 3 ML PEN SC SCH (08:25)
[2019-12-12] MEDS: CYANOCOBALAMIN 500 MCG TABLET (VITAMIN B-12) PO SCH (08:26)
[2019-12-12] MEDS: lisinopril 10 MG TAB PO SCH (08:26)
[2019-12-12] MEDS: FUROSEMIDE 40 MG TAB PO SCH (08:26)
[2019-12-12] MEDS: POTASSIUM CHLORIDE CRTAB 20 MEQ TABCR PO SCH (08:27)
--- NOTE | 2019-12-12 10:27 | Hospitalist Progress Note ---
Date of Service December 12, 2019 Assessment & Plan (1) Stroke-like symptom: Presented with dysarthria. Head CT x 2 showed old strokes, no apparent acute event. Could not obtain MRI due to pacemaker. Carotid duplex showed bilat plaque without significant stenosis. Echo did not show any apparent thrombi. Paroxysmal atrial fibrillation. Has been on warfarin, but INR subtherapeutic. Probable small cardioembolic stroke secondary to subtherapeutic INR. Had stroke in June 2019, also with subtherapeutic INR. Neurology recommended considering DOAC- discussed with Cardiology and they concur. Pros and cons of wafarin vs DOAC discussed with patieht. Checked with patient's retail pharmacy ([facility]). Co-pay for apixaban will be $97. Checked with [facility]. They require consultation with their anticoagulation clinic before offering coverage. Given coupon to cover first month therapy of apixaban. Continue aspirin 81 mg every other day. LDL-c = 73. Continue simvastatin- not on intensive dosing because of statin in tolerance in the past. Continue LEAD TELLER. (2) Coronary artery disease: No anginal symptoms. Continue ASA, metoprolol, statin. (3) Atrial fibrillation: History of PAF. Continue metoprolol and anticoagulation. (4) HTN (hypertension): Continue metoprolol and lisinopril. (5) Diabetes mellitus, type II: Hold metformin during hospital stay. Hgb A1c 6.6. Insulin coverage as needed. Resume usual regimen upon discharge. (6) DVT prophylaxis: Currently receiving IV heparin + warfarin. Ambulating. (7) Discharge planning issues: Discharge to home. Internal Medicine follow-up with Dr. Mosqueda. Cardiology follow-up with Dr. Gonzalez. Neurology follow-up recommended in 8 wks. Admission and Anticipated Discharge Date Admission Date: December 11, 2019 Subjective Recheck for stroke-like symptoms. Patient seen in their room around 1010. Persistent dysarthria, but not as severe. No headache. No other neuro symptoms. Ambulating in hallway independently. Ready to go home. Review of Systems: Constitutional- no fever. Cardiac- no chest pain. Pulmonary- no cough or SOB. GI- no nausea, vomiting, diarrhea, melena, hematochezia. - no urinary symptoms. Otherwise, as noted above. Physical Exam Constitutional: no acute distress Respiratory: no respiratory distress Auscultation: lungs clear to auscultation bilaterally Cardiovascular: Rate/Rhythm: regular rate and regular rhythm Vessels: no JVD Extremities: no calf tenderness and no edema Gastrointestinal (Abdomen): normal bowel sounds, soft, nontender, no hepatosplenomegaly Musculoskeletal: Extremities: no cyanosis Skin: no rashes, warm and dry Neurologic: PERRL, EOMI mild-moderate dysarthria no apparent aphasia no facial palsy motor strength upper and lower extremities essentially 5/5 Psychiatric: Orientation: alert and oriented x 3 Results & Data Results & Data ([facility]) Vital Signs (Past 12 Hours) Vital Signs Temp Pulse Pulse Resp BP BP Pulse Ox 12/12/19 07:27 36.5 C 64 18 147/73 H 98 12/12/19 03:57 36.4 C L 76 20 127/72 97 12/12/19 00:00 76 12/11/19 22:29 137/77 Laboratory Results Laboratory Results - last 24 hr 12/11/19 12/11/19 12/12/19 16:29 20:27 06:37 WBC 5.37 RBC 3.32 L Hgb 11.2 L Hct 32.1 L MCV 96.7 MCH 33.7 MCHC 34.9 RDW Std Deviation 44.8 RDW Coeff of Ashu 12.8 Plt Count 231 MPV 10.3 Immature Gran % (Auto) 0.4 Neut % (Auto) 61.6 Lymph % (Auto) 22.5 [place] % (Auto) 11.9 Eos % (Auto) 3.4 Baso % (Auto) 0.2 Neut # (Auto) 3.31 Lymph # (Auto) 1.21 [place] # (Auto) 0.64 H Eos # (Auto) 0.18 Baso # (Auto) 0.01 Immature Gran # (Auto) 0.02 PT INR APTT PTT Ratio Sodium Potassium Chloride Carbon Dioxide Anion Gap BUN Creatinine Est Cr Clr Drug Dosing Est GFR ( Amer) Est GFR (Non-Af Amer) BUN/Creatinine Ratio Glucose POC Glucose 122 H 151 H Calcium 12/12/19 12/12/19 12/12/19 06:37 06:37 07:41 WBC RBC Hgb Hct MCV MCH MCHC RDW Std Deviation RDW Coeff of Ashu Plt Count MPV Immature Gran % (Auto) Neut % (Auto) Lymph % (Auto) [place] % (Auto) Eos % (Auto) Baso % (Auto) Neut # (Auto) Lymph # (Auto) [place] # (Auto) Eos # (Auto) Baso # (Auto) Immature Gran # (Auto) PT 18.9 H INR 1.9 H APTT 54.0 H* PTT Ratio 1.9 Sodium 139 Potassium 3.7 Chloride 109 H Carbon Dioxide 23 Anion Gap 7.0 BUN 17 Creatinine 1.03 Est Cr Clr Drug Dosing 42.3 Est GFR ( Amer) 74.3 Est GFR (Non-Af Amer) 64.1 BUN/Creatinine Ratio 16.7 Glucose 122 H POC Glucose 137 H Calcium 8.6 12/12/19 11:32 WBC RBC Hgb Hct MCV MCH MCHC RDW Std Deviation RDW Coeff of Ashu Plt Count MPV Immature Gran % (Auto) Neut % (Auto) Lymph % (Auto) [place] % (Auto) Eos % (Auto) Baso % (Auto) Neut # (Auto) Lymph # (Auto) [place] # (Auto) Eos # (Auto) Baso # (Auto) Immature Gran # (Auto) PT INR APTT PTT Ratio Sodium Potassium Chloride Carbon Dioxide Anion Gap BUN Creatinine Est Cr Clr Drug Dosing Est GFR ( Amer) Est GFR (Non-Af Amer) BUN/Creatinine Ratio Glucose POC Glucose 139 H Calcium
[2019-12-12] MEDS ORDERED: APIXABAN 2.5 MG TAB PO SCH (10:30)
[2019-12-12] MEDS ORDERED: STROKE PATIENT DISCHARGE STA (10:38)
--- NOTE | 2019-12-12 11:30 | Pharmacy Report ---
Pharmacist Stroke Counseling - Date of Service December 12, 2019 - Scope: Pharmacy has been consulted to provide medication discharge counseling for this patient admitted with ischemic stroke vs. transient ischemic attack as per the Pharmacist Discharge Counseling for Stroke Patients Protocol. - Medications on Discharge: Home Medications Medication Instructions Recorded Confirmed finasteride 5 mg PO HS 06/17/18 12/10/19 levothyroxine 50 mcg PO QAM 06/17/18 12/10/19 metoprolol succinate 100 mg PO HS 06/17/18 12/10/19 multivitamin 1 tab PO Q OTHER DAY 06/17/18 12/10/19 terazosin 10 mg PO HS 06/17/18 12/10/19 warfarin 2.5 mg PO .SUTUWETHFRSA@ 06/17/18 12/10/19 warfarin 5 mg PO .MO@ 06/17/18 12/10/19 aspirin 81 mg PO Q OTHER DAY 03/27/19 12/10/19 simvastatin 5 mg PO HS 03/27/19 12/10/19 cholecalciferol (vitamin D3) 400 unit PO Q2D 06/14/19 12/10/19 [Vitamin D3] cyanocobalamin (vitamin B-12) 1,000 mcg PO QAM 06/14/19 12/10/19 [Vitamin B-12] furosemide 20 mg PO DAILYBL 12/10/19 12/10/19 furosemide 40 mg PO DAILY 12/10/19 12/10/19 metformin 1,000 mg PO BID 12/10/19 12/10/19 lisinopril 10 mg PO DAILY 12/11/19 12/11/19 potassium chloride 20 meq PO BID 12/12/19 12/12/19 New Rx's Medication Instructions Recorded apixaban 5 mg PO BID #60 tab 12/12/19 - Action: The above medications, specifically ones for stroke treatment/prophylaxis, have been reviewed in detail with the patient and/or patient patient support representative(s) prior to discharge. This includes indication, common adverse reactions, drug interactions, and medication administration. Medication counseling has been employed using the teach-back method to ensure understanding. - Outcome: The patient and/or patient patient support representative(s) have demonstrated understanding of the medications. Additional comments: * Patient initially resistant to idea of switching to Eliquis due to perceived increased risk since there is no lab monitoring like with warfarin. He has now come around to the idea once presented with the data and is now excited about the change. He is understanding of the new dosing frequency of 5 mg BID and plans to take with his AM and HS pills. Patient is already aware of signs/symptoms of bleeding due to history with warfarin and will seek medical attention when necessary. * Some concern from patient regarding his Lasix and Eliquis and possible issues with his kidneys. I explained that this is drug combination is fairly common and not something to be concerned about, but that he should expect routine lab monitoring to ensure that his renal function is stable. I also explained that if his renal function were to decline, then a dose reduction of Eliquis may be necessary. * Patient seems to have strong grasp on current medications - do not anticipate issues with these medication changes. Thank you for allowing pharmacy to be involved in the care of this patient. Please call [phone] with any additional questions
[2019-12-12] MEDS: FUROSEMIDE 20 MG TAB PO SCH (11:45)
--- NOTE | 2019-12-12 12:53 | Discharge Summary ---
Date of Service Date of Admission: 12/10/19 Date of Discharge: 12/12/19 Admission HPI Per Admitting Provider This is an 89-year-old male who has significant past medical history of T2DM, HTN, HLD, CKD stage III, hypothyroidism, CAD with history of CABG x2 in 91, chronic atrial fibrillation anticoagulated on warfarin, cardiac pacemaker in situ, chronic HFpEF, history of CVA with residual left-sided weakness, history of bladder CA, BPH who presents to ED secondary to difficulty speaking x30 minutes. is at bedside. Symptoms started around 8 AM. He states he was trying to talk with . He knew what he wanted to say, but was unable to speak it. He states this was off and on for about 30 minutes. denies any facial droop, slurred speech or worsened weakness. Patient also denies any worsened weakness, dysphagia or drooling. EMS was called. When they arrived s ymptoms abated. Currently he otherwise feels well. He denies recent fever, chills, sweats, lightheadedness, dizziness, headache, change in vision, chest pain, shortness of breath, cough, nausea, vomiting, abdominal pain, changes bowel or urinary habits. He is requesting lunch. He states he has been on warfarin for approximately 20 years ever since his bypass. He states June 152019 he sustained a right cerebellar stroke with residual left-sided weakness, mostly the left hand and left leg. He does ambulate with a cane. He also admits to mini stroke approximately a month prior. He states both times his INR was subtherapeutic. In ED patient made hemodynamically stable. Lab work notable for H&H 11.5 and 33.8, platelet 235, INR subtherapeutic at 1.4, BUN 26, creatinine 1.19, glucose 130. Head CT was negative for acute intracranial abnormality. Old small right cerebellar infarct noted. 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 Not a candidate for TPA due to (1) warfarin therapy and (2) improvement of symptoms with low NIHSS. Head CT x 2 showed old strokes, no apparent acute event. Could not obtain MRI due to pacemaker. Carotid duplex showed bilat plaque without significant stenosis. Echo did not show any apparent thrombi. Paroxysmal atrial fibrillation. Has been on warfarin, but INR subtherapeutic. Probable small cardioembolic stroke secondary to subtherapeutic INR. Had stroke in June 2019, also with subtherapeutic INR. Neurology recommended considering DOAC- discussed with Cardiology and they concur. Pros and cons of wafarin vs DOAC discussed with patieht. Checked with patient's retail pharmacy ([facility]). Co-pay for apixaban will be $97. Checked with [facility]. They require consultation with their anticoagulation clinic before offering coverage. Given coupon to cover first month therapy of apixaban. Continue aspirin 81 mg every other day. LDL-c = 73. Continue simvastatin- not on intensive dosing because of statin in tolerance in the past. PT, OT, [facility] evaluations performed. Continue [employer] for dysarthria as outpatient. (2) Coronary artery disease: No anginal symptoms. Continue ASA, metoprolol, statin. (3) Atrial fibrillation: History of PAF. Continue metoprolol and anticoagulation. (4) HTN (hypertension): Continue metoprolol and lisinopril. (5) Diabetes mellitus, type II: Hold metformin during hospital stay. Hgb A1c 6.6. Insulin coverage as needed. Resume usual regimen upon discharge. (6) DVT prophylaxis: Received IV heparin + warfarin. Ambulating. (7) Discharge planning issues: Discharged to home. Internal Medicine follow-up with Dr. Mosqueda. Cardiology follow-up with Dr. Gonzalez. Neurology follow-up recommended in 8 wks. Total Time Total Time Spent Total Time Spent (In Minutes): 45 Discharge Plan Discharge Items Patient Disposition: Home - Self-Care Reason For Visit: stroke Discharge Diagnosis: stroke Activity: Resume your previous activity Non-emergency contact: Primary Care Provider, Hospitalist and Neurologist Call non-emergency contact if: you have any medication questions Follow-up/Referrals: Ty Mosqueda, [Primary Care Provider] - (Date & Time 12/18/2019 11:00 AM Jenifer Rowe MD (covering for Dr. Mosqueda) General Internal Medicine [facility] ) Diet: Carb Consistent or DM2 and Heart Healthy Addtl Attending Provider Instructions: MEDICATION CHANGES: Stop warfarin (Coumadin). Start apixaban (Eliquis) 5 mg twice a day. SUMMARY OF TEST RESULTS: CT scans of brain showed old strokes. No new strokes were seen, but a small stroke could be missed on CT scan. RECOMMENDATIONS FOR FOLLOW-UP: Please ask Dr. Mosqueda for referral for follow-up Neurology appointment in about 8 weeks. OTHER INSTRUCTIONS: Prescription for apixaban (Eliquis) sent to [facility]. Please use coupon for first month. [facility] but [facility] require referral to their [facility]agulation clinic. Continue speech therapy as outpatient. Case Management is looking into options. If speech therapy not available at home, speech therapists at [facility] can see you as an outpatient. Seek medical attention if you have: * temperature above 101 * chest pain or trouble breathing * abdominal pain, nausea, vomiting * diarrhea, dark stools or bloody stools * any unanswered questions or concerns Call 911 if symptoms are severe. Please take good care of yourself. Call if you have any questions or problems. You can reach a [facility] hospitalist on duty at [facility] 24 hours a day by calling [phone]. My cell # is [phone]. STROKE INSTRUCTIONS: Risk Factors for Stroke: You can reduce your chances of stroke by working with your medical provider to adopt a healthy lifestyle. Some specific ways to lower your chance of stroke are: * If you are a smoker, now is the time to stop smoking cigarettes * If you are diabetic, improve the control of your blood sugars * Avoid excessive amounts of alcohol * Control high blood pressure * Lose weight if you are overweight * Be sure to lead an active lifestyle * Eat a healthy diet low in salt, cholesterol and fat You should know about other risk factors for stroke that you are unable to control. These include: * Age 55 years or older * Male gender * Certain racial groups: , or / * Family History of Stroke, Mini stroke or Heart Attack * Sickle Cell Disease Follow Up: It is important for you to keep your follow up appointments with your medical provider. Who to Call and When: Medical Emergencies: Call 911 immediately if you experience any of the following warning signs and symptoms of Stroke: * Sudden numbness or weakness of the face, arm or leg, especially on one side of the body * Sudden confusion, trouble speaking or understanding * Sudden trouble seeing in one or both eyes * Sudden trouble walking, dizziness, loss of balance or coordination * Sudden severe headache with no cause Do not delay calling 911 if you experience any warning signs or symptoms of a stroke. Delay in seeking medical attention may affect what treatments can be given to you. . Pending Studies at Discharge: No Stand-Alone Forms: Medications to Prevent Stroke, My [facility] [employer], Smoking Cessation Medications and DC Order Prescriptions: New apixaban 5 mg tablet 5 mg PO BID Qty: 60 RF: 5 Continued cyanocobalamin (vitamin B-12) [Vitamin B-12] 1,000 mcg Tablet 1,000 mcg PO QAM RF: 0 cholecalciferol (vitamin D3) [Vitamin D3] 25 mcg (1,000 unit) Capsule 400 unit PO Q2D RF: 0 furosemide 20 mg tablet 40 mg PO DAILY RF: 0 furosemide 20 mg Tablet 20 mg PO DAILYBL RF: 0 metformin 1,000 mg tablet 1,000 mg PO BID RF: 0 lisinopril 10 mg tablet 10 mg PO DAILY RF: 0 potassium chloride 10 mEq tablet extended release 20 meq PO BID RF: 0 finasteride 5 mg tablet 5 mg PO HS RF: 0 multivitamin Tablet 1 tab PO Q OTHER DAY RF: 0 metoprolol succinate 100 mg tablet extended release 24 hr 100 mg PO HS RF: 0 levothyroxine 50 mcg tablet 50 mcg PO QAM RF: 0 terazosin 10 mg capsule 10 mg PO HS RF: 0 aspirin 81 mg Tablet,Delayed Release (Dr/Ec) 81 mg PO Q OTHER DAY RF: 0 simvastatin 5 mg tablet 5 mg PO HS RF: 0 Discontinued warfarin 2.5 mg tablet 5 mg PO .MO@HS RF: 0 warfarin 2.5 mg tablet 2.5 mg PO .SUTUWETHFRSA@HS RF: 0 Discharge Orders: Discharge Order (Routine); Ordered 12/12/19 Ordered By: Irving Zaragoza/Other Patient Handouts: Managing Type 2 Diabetes Admission Data Admit Date/Time: 12/11/19 13:39 Attending Provider: Irving Liang Admit Provider: Allen Nelson Primary Care Provider: Ty Mosqueda Other Providers: Allen Nelson ; Bryon Sims ; Victor Manuel Vanegas
--- NOTE | 2019-12-27 10:21 | Coding Query ---
CODING QUERY To promote full compliance with coding requirements relating to patient care, provider participation is requested in all cases of senior linux systems administrator uncertainty. Please assist us with the question(s) below: Coding Question(s): There is documentation of Stroke with Dysarthria, ischemic, probably cardioembolic and probable small cardioembolic stroke secondary to subtherapeutic INR with documentation as well of, "Head CT was negative for acute intracranial abnormality. Old small right cerebellar infarct noted". It is not clear if there was a new Acute Stroke or if this was an Old Stroke only. Please clarify below, in your clinical opinion, regarding the Stroke on this admission. ( x ) Acute Stroke (suspected clinically) ( ) Old Stroke ( ) Other: Please Specify Physician's Response(s): Thank you Kimberly Galarza Principal Diagnosis: "that condition established after study, to be chiefly responsible for occasioning the admission of the patient to the hospital for care." Co-Existing Principal Diagnosis: "when two or more diagnoses equally meet the criteria for principal diagnosis as determined by the circumstances of admission, diagnostic work up, and/or therapy provided, and the Alphabetic Index, Tabular List, or another coding guideline does not provide sequencing direction, any one of the diagnoses may be sequenced first." "When the physician has documented what appears to be a current diagnosis in the body of the record, but has not included the diagnosis in the final diagnostic statement, the physician should be asked whether the diagnosis should be added." (Source Coding Clinic 2 QTR90. p3-4) MARISOL
== END 2019-12-12 13:09 | disposition home health service (06) | DRG 65 ==
LOC: 2E 08:45 → ED 08:45 → SUATTDRO 10:44 → 2E 12:18 → 2W 12-11 22:11